=== PATIENT | female | born 1995 | race Caucasian/White ===

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

== ENCOUNTER 2018-03-18 15:46 | Emergency (ER) | payer MEDICAID ==
[~2018-03-18] VITALS: Ht 170.2 cm; Wt 89.8 kg
--- OUTSIDE RECORDS SUMMARY | 2018-03-18 16:31 | XMS REPORT ---
Author Author GLENNA CASTILLO Organization [facility] Address [address] [place] [address] Care Team Providers Care Movers Name Role Phone ZULYBONNIE GLENNA TINAJERO Unavailable PROBLEMS Unknown Problems ALLERGIES Substance Reaction Event Type Date Status N.K.D.A. Unknown Non Drug Allergy Jun, Unknown SOCIAL HISTORY No smoking Hx information available PLAN OF CARE Activity Details Follow Up prn Reason: VITAL SIGNS Height 67 in 2016-06-26 Weight 143.1 lbs 2016-06-26 Temperature 99.1 degrees Fahrenheit 2016-06-26 Heart Rate 76 bpm 2016-06-26 Respiratory Rate 16 2016-06-26 BMI 22.41 kg/m2 2016-06-26 Blood pressure systolic 120 mmHg 2016-06-26 Blood pressure diastolic 68 mmHg 2016-06-26 MEDICATIONS Medication Instructions Dosage Frequency Start Date End Date Duration Status Depo-Provera 150 MG/ML 1 ml Active RESULTS Name Result Date Reference Range TEST, URINE (IN HOUSE) 2016-06-26 RESULTS negative Lot # [id number] Control + Exp date 12/02/2017 TRICHOMONAS (IN HOUSE) 2016-06-26 TRICHOMONAS negative Control + Lot # [id number] Exp date 03/2017 BACTERIAL VAGINOSIS (IN HOUSE) 2016-06-26 RESULTS negative Control + Lot # [id number] Exp date 08/2016 GC/CHLAMYDIA (SWAB OR URINE)-RAPID 2016-06-26 Chlamydia trachomatis, LISSETH Negative Negative Neisseria gonorrhoeae, LISSETH Negative Negative PROCEDURES Procedure Date Ordered Related Diagnosis Body Site LAB NOT BILLED BY [facility] Jun 26, 2016 URINE TEST Jun 26, 2016 Office Visit, Est Pt., Level 3 Jun 26, 2016 MASCORRO VAG, DNA, DIR PROBE Jun 26, 2016 IMMUNIZATIONS No Known Immunizations
--- OUTSIDE RECORDS SUMMARY | 2018-03-18 16:31 | XMS REPORT ---
Author Author DIYA BROWN [facility] Address [address] [place] [address] Care Team Providers Care Box Lidder Name Role Phone DIYA BROWN Unavailable PROBLEMS Unknown Problems ALLERGIES No Known Allergies SOCIAL HISTORY Never Assessed PLAN OF CARE Activity Details Follow Up prn Reason: VITAL SIGNS Height 67 in 2016-09-19 Weight 189.6 lbs 2016-09-19 Temperature 96.4 degrees Fahrenheit 2016-09-19 Heart Rate 107 bpm 2016-09-19 Respiratory Rate 20 2016-09-19 BMI 29.69 kg/m2 2016-09-19 Blood pressure systolic 126 mmHg 2016-09-19 Blood pressure diastolic 84 mmHg 2016-09-19 MEDICATIONS Medication Instructions Dosage Frequency Start Date End Date Duration Status Zyrtec Childrens Allergy 1 MG/ML Orally Once a day 2.5 ml as needed 24h Sep, December, 30 day(s) Active Zyrtec Allergy 10 mg Orally Once a day 1 tablet 24h Sep, Nov, 30 day(s) Active RESULTS No Results PROCEDURES No Known procedures IMMUNIZATIONS No Known Immunizations MEDICAL (GENERAL) HISTORY Type Description Date Medical History chlamydia
--- OUTSIDE RECORDS SUMMARY | 2018-03-18 16:31 | XMS REPORT ---
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 Role Phone TOMAS MCKENZIE Unavailable PROBLEMS Unknown Problems ALLERGIES No Known Allergies ENCOUNTERS Encounter Location Date Diagnosis [facility] [address] [address] 13 May, 2017 General medical exam Z00.00 and Fatigue, unspecified type R53.83 [facility] [address] [address] May, General medical exam Z00.00 and Fatigue, unspecified type R53.[address] [id number] Sep, Post-nasal drip R09.[address] [id number] Jun, [address] [id number] Jun, Vaginal odor N89.8 ; High risk sexual behavior Z72.51 and Depo-Provera contraceptive status Z30.40 [place] [id number] [place] [address] [id number] Feb, Encounter for Depo-Provera contraception Z30.42 [facility] [address] [address] December, [place] [id number] [place] [address] [id number] December, [place] [id number] [place] [address] [id number] Nov, [address] [id number] Nov, High risk bisexual behavior Z72.53 and Trichomonas infection A59.9 [facility] [address] [facility] [id number] [address] [address] Nov, Encounter for Depo-Provera contraception Z30.42 and Encounter for immunization Z23 [facility] [address] [facility] [id number], [place] [address] Nov, Acute sinusitis J01.90 [place] [id number] [place] [address] [id number] Sep, Acute frontal sinusitis, recurrence not specified J01.10 [place] [id number] [place] [address] [id number] Aug, High risk sexual behavior Z72.51 and Trichomonas infection A59.[address] [place] [address] [id number] Jul, [place] [id number] [place] [address] [id number] Jun, [address] [place] [address] [id number] May, Screening for STD sexually transmitted disease Z11.3 and Encounter for immunization Z23 [facility] [address] [facility] [id number][place] [id number] May, [facility] [address] [facility] [id number][place] [id number] Apr, [facility] [place] [address] [id number] Apr, Leukorrhea 623.5 [address] [place] [address] [id number] Mar, Routine child health exam V20.2 ; Encounter for Depo-Provera contraception V25.49 ; Dietary counseling and surveillance V65.3 ; Exercise counseling V65.41 and GARDASIL (HPV) DX V04.89 [address] [place] [address] [id number] Abhay, 2015 Insect bite 919.4 [facility] [address] [facility] [id number] [id number] December, [facility] [place] [facility] [address] [place] [address] [id number], [place] [address] Nov, [facility] [place] [facility] [address]00565100[place], [place] [address] Nov, [facility] [id number][place] [id number] Sep, [facility] [place] [facility] [address]00565100[place], [place] [address] Sep, [facility] [id number] [place] [address] [id number] Sep, [facility] [address]00565100[place], [place] [address] Sep, [facility] [id number][place] [id number] Aug, [facility] [address]00565100[place] [address] Aug, [facility] [id number][place] [id number] Jul, [facility] [place] [facility] [id number] Jul, [facility] [place] [facility] [id number], [place] [address] Jul, [facility] [place] [facility] [id number], [place] [address] Jul, [facility] [place] [facility] [address]00565100[place], [place] [address] Jul, [facility] [id number][place] [id number] Jul, [facility] [place] [facility] [address] [place] [address] [id number] [address] Jul, [facility] [place] [facility] [address] [id number], [place] [address] Jul, [facility] [address] [id number] [place] [id number] Jul, [facility] [place] [facility] [address] [facility] [id number] [place] [address] Jul, [facility] [place] [facility] [address] [facility] [id number] [place] [address] Jul, [facility] [address] [id number] [place] [id number] Jul, [facility] [place] [facility] [address] [id number] [place] [address]- [address] Jul, [facility] [address] [id number] [place] [id number] Jul, [facility] [address] [facility] [id number] [place] [id number] Jul, [facility] [place] [facility] [address] [facility] [id number], [place] [address] Jul, [facility] [place] [facility] [address] [facility] [id number] [place] [address]- [address] Jul, [facility] [address] [facility] [id number] [place] [id number] Jul, [facility] [place] [facility] [address] [facility] [id number], [place] [address] Jul, [facility] [place] [facility] [address] [facility] [id number], [place] [address] Jul, [facility] [place] [facility] [address] [facility] [id number], [place] [address] Jul, [facility] [address] [facility] [id number] [place] [id number] Jul, [facility] [place] [facility] [address] [facility] [id number] [place] [address]- [address] Jul, [facility] [place] [facility] [address] [facility] [id number], [place] [address] Jul, [facility] [address] [id number][place] [id number] Jul, [facility] [place] [facility] [address] [id number] [place] [address]- [address] Jul, [facility] [place] [facility] [address] [id number] [place] [address]- [address] Jul, [facility] [place] [facility] [address] [facility] [id number] [place] [address] Jul, [facility] [address] [id number][place] [id number] Jun, [facility] [place] [facility] [address] [facility] [id number] [place] [address]- [address] Jun, [facility] [address] [facility] [id number][place] [id number] Jun, [facility] [place] [facility] [address] [facility] [id number], [place] [address] Jun, [facility] [address] [facility] [id number][place] [id number] Jun, [facility] [place] [facility] [address] [facility] [id number], [place] [address] Jun, [facility] [place] [facility] [address] [facility] [id number], [place] [address] May, [facility] [address] [id number][place] [id number] May, [facility] [address] [facility] [id number][place] [id number] May, [facility] [place] [facility] [address] [facility] [id number], [place] [address] May, [facility] [place] [facility] [address] [facility] [id number], [place] [address] May, [facility] [place] [facility] [address] [facility] [id number], [place] [address]- [address] May, [facility] [address] [facility] [id number][place] [address] May, [facility] [place] [facility] [address] [facility] [id number] [place] [address]- [address] May, [facility] [place] [facility] [address] [facility] [id number], [place] [address] May, [facility] [place] [facility] [address] [facility] [id number] [place] [address]- 4[address] Apr, [facility] [place] [facility] [address] [id number] [place] [address]- 3658 Apr, [facility] [place] [facility] [address] [facility] [id number] [place] [address]- 0716 Apr, [facility] [place] [facility] [address] [facility] [id number] [place] [address]- 1184 Apr, [facility] [place] [facility] [address] [facility] [id number], [place] [address]- 1609 Apr, [facility] [place] [facility] [address] [facility] [id number], [place] [address]- [address] Apr, [facility] [address] [facility] [id number][place] [id number] Apr, [facility] [place] [facility] [address] [facility] [id number], [place] [address]- [address] Apr, [facility] [place] [facility] [address] [facility] [id number][place] [address]- 3[address] Apr, [facility] [address] [facility] [id number][place] [id number] Apr, [facility] [place] [facility] [address] [facility] [id number], [place] [address]- 26[address] Apr, [facility] [place] [facility] [address] [facility] [id number][place] [address] Mar, [facility] [place] [facility] [address] [facility] [id number], [place] [address]- 74[address] Mar, [facility] [address] [facility] [id number][place] [id number] Mar, [facility] [place] [facility] [address] [id number] [place] [address]- 8316 Mar, [facility] [place] [facility] [address] [id number] [place] [address]- 2536 Feb, [facility] [address] [id number] [place] [id number] Feb, [facility] [place] [facility] [address] [id number] [place] [address]- 1573 Feb, [facility] [place] [facility] [address] [facility] [id number] [place] [address]- 4261 Feb, [facility] [place] [facility] [address] [id number] [place] [address]- 7484 Feb, [facility] [address] [id number] [place] [id number] Feb, [facility] [address] [id number] [place] [id number] Feb, [facility] [place] [facility] [address] [facility] [id number] [place] [address]- 1003 Feb, [facility] [place] [facility] [address] [facility] [id number] [place] [address]- 8816 Feb, [facility] [address] [id number] [place] [id number] Jan, [facility] [place] [facility] [address] [id number], [place] [address]- 5[address] Jan, [facility] [address] [id number][place] [id number] Jan, [facility] [place] [facility] [address] [id number] [place] [address]- 5[address] Jan, [facility] [address] [id number] [place] [id number] Jan, [facility] [place] [facility] [address] [id number] [place] [address]- 3556 Jan, [facility] [address] [id number][place] [address] Nov, [facility] [place] [facility] [address] [facility] [id number], [place] [address]- [address] Nov, [facility] [address] [facility] [id number][place] [id number] Oct, [facility] [place] [facility] [address]00565100[place], [place] [address]- 6[address] Oct, [facility] [address] [facility] [id number][place] [id number] Sep, [facility] [place] [facility] [address]00565100[place], [place] [address]- 6[address] Sep, [facility] [address] [place] [address] [id number][place] [id number] Sep, [facility] [place] [facility] [address]00565100[place], [place] [address]- 5645 Sep, [facility] [place] [facility] [address]00565100[place], [place] [address]- 9929 Sep, [facility] [place] [facility] [address]00565100[place], [place] 8713 Sep, [facility] [place] [facility] [address]00565100[place], [place] [address]- 8084 Aug, [facility] [place] [facility] [address]00565100[place], [place] [address]- 7187 Aug, [facility] [id number], [place] [id number] Aug, [facility] [place] [facility] [address] [facility] [id number], [place] [address]- 5589 Aug, [facility] [address] [facility] [id number][place] [id number] May, [facility] [place] [facility] [address]00565100[place], [place] [address]- 8906 May, [facility] [id number], [place] [id number] Apr, [facility] [address] [id number][place] [id number] Mar, [facility] [address] [id number][place] [address] Mar, [facility] [address] [id number], [place] [id number] Oct, [facility] [address] [id number][place] [id number] Aug, [facility] [address] [id number] [place] [address] [id number] Aug, [facility] [id number] [place] [address] [id number] Aug, [facility] [id number] [place] [address] [id number] Jun, [facility] [id number] [place] [address] Jun, [facility] [id number] [place] [address] [id number] Nov, [facility] [address] [address] Sep, [facility] [address] [address] May, [facility] [id number] [place] [address] May, IMMUNIZATIONS No Known Immunizations SOCIAL HISTORY Never Assessed REASON FOR VISIT Establish Care -- Thyroid, pt. requesting that thyroid be checked---MARÍA Dorsey PLAN OF CARE Activity Details Follow Up 1 year or as indicated by lab that she will return Reason: VITAL SIGNS Height 67 in 2017-05-14 Weight 186.5 lbs 2017-05-14 Temperature 97.6 degrees Fahrenheit 2017-05-14 Heart Rate 77 bpm 2017-05-14 Respiratory Rate 18 2017-05-14 BMI 29.21 kg/m2 2017-05-14 Blood pressure systolic 119 mmHg 2017-05-14 Blood pressure diastolic 76 mmHg 2017-05-14 MEDICATIONS Unknown Medications RESULTS No Results PROCEDURES No Known procedures INSTRUCTIONS MEDICATIONS ADMINISTERED No Known Medications MEDICAL (GENERAL) HISTORY Type Description Date Medical History chlamydia
--- OUTSIDE RECORDS SUMMARY | 2018-03-18 16:33 | XMS REPORT | Continuity of Care Document ---
Author Author [facility] Address Unknown Phone Unavailable Allergies Active Description Code Type Severity Reaction Onset Reported/Identified Relationship to Patient Clinical Status Yes No Known Drug Allergies [id number] Drug Allergy Mild N/A 11/29/2008 Medications There is no data. Problems Date Dx Coded Attending Type Code Diagnosis Diagnosed By 09/10/2008 465.9 UPPER RESPIRATORY INFECTION ACUTE 09/10/2008 CHAD GILLILAND MD 465.9 UPPER RESPIRATORY INFECTION ACUTE 09/10/2008 465.9 [...] 465.9 UPPER RESPIRATORY INFECTION ACUTE 09/10/2008 HELLJOHNNIE MARKETING DATABASE CONSULTANT YELENA E 465.9 UPPER RESPIRATORY INFECTION ACUTE 09/10/2008 ASHISH MARKETING DATABASE CONSULTANT, KAREN A 465.9 UPPER RESPIRATORY INFECTION ACUTE 09/10/2008 MEREDITH HOFF APRN 465.9 UPPER RESPIRATORY INFECTION ACUTE 09/10/2008 ASHISH MARKETING DATABASE CONSULTANT, KAREN A 465.9 UPPER RESPIRATORY INFECTION ACUTE 09/10/2008 MC DO, MARTI K 465.9 UPPER RESPIRATORY INFECTION ACUTE 09/10/2008 HELLWIG MARKETING DATABASE CONSULTANT YELENA E 465.9 UPPER RESPIRATORY INFECTION ACUTE 09/10/2008 MC DO, MARTI K 465.9 UPPER RESPIRATORY INFECTION ACUTE 09/10/2008 HELLWIG MARKETING DATABASE CONSULTANT, YELENA E 465.9 UPPER RESPIRATORY INFECTION ACUTE [...] 465.9 UPPER RESPIRATORY INFECTION ACUTE 09/10/2008 HELLWIG MARKETING DATABASE CONSULTANTYELENA E 465.9 UPPER RESPIRATORY INFECTION ACUTE 09/10/2008 HELLWIG MARKETING DATABASE CONSULTANTYELENA Paez E 465.9 UPPER RESPIRATORY INFECTION ACUTE 09/10/2008 MC DO, MARTI K 465.9 UPPER RESPIRATORY INFECTION ACUTE 09/10/2008 HELLWIG MARKETING DATABASE CONSULTANTYELENA E 465.9 UPPER RESPIRATORY INFECTION ACUTE 09/10/2008 [...] MARTI K 708.0 ALLERGIC URTICARIA 11/03/2008 HELLWIG MARKETING DATABASE CONSULTANTIFEANYIE E 461.9 SINUSITIS ACUTE 11/03/2008 HELLWIG MARKETING DATABASE CONSULTANT, YELENA E 708.0 ALLERGIC URTICARIA 11/03/2008 ASHISH MARKETING DATABASE CONSULTANT, KAREN A 461.9 SINUSITIS ACUTE 11/03/2008 ASHISH MARKETING DATABASE CONSULTANT, KAREN A 708.0 ALLERGIC URTICARIA 11/03/2008 HOFF MARKETING DATABASE CONSULTANT, MEREDITH R 461.9 SINUSITIS ACUTE 11/03/2008 HOFF MARKETING DATABASE CONSULTANT, MEREDITH R 708.0 ALLERGIC URTICARIA 11/03/2008 ASHISH MARKETING DATABASE CONSULTANT, KAREN A 461.9 SINUSITIS ACUTE 11/03/2008 ASHISH MARKETING DATABASE CONSULTANT, KAREN A 708.0 ALLERGIC URTICARIA 11/03/2008 MC DO, MARTI K 461.9 SINUSITIS ACUTE 11/03/2008 MC DO, MARTI K 708.0 ALLERGIC URTICARIA 11/03/2008 HELLWIG MARKETING DATABASE CONSULTANT, YELENA E 461.9 SINUSITIS ACUTE 11/03/2008 HELWIG MARKETING DATABASE CONSULTANT, YELENA E 708.0 ALLERGIC URTICARIA 11/03/2008 MC DO, MARTI K 461.9 SINUSITIS ACUTE 11/03/2008 MC DO, MARTI K 708.0 ALLERGIC URTICARIA 11/03/2008 HELLWIG MARKETING DATABASE CONSULTANT, YELENA E 461.9 SINUSITIS ACUTE 11/03/2008 HELWIG MARKETING DATABASE CONSULTANT, YELENA E 708.0 ALLERGIC URTICARIA 11/03/2008 MC [...] MARTI K 708.0 ALLERGIC URTICARIA 11/03/2008 HELLWIG MARKETING DATABASE CONSULTANT, YELENA E 461.9 SINUSITIS ACUTE 11/03/2008 HELLWIG MARKETING DATABASE CONSULTANT, YELENA E 708.0 ALLERGIC URTICARIA 11/03/2008 HELLWIG MARKETING DATABASE CONSULTANT, YELENA E 461.9 SINUSITIS ACUTE 11/03/2008 HELLWIG MARKETING DATABASE CONSULTANT, YELENA E 708.0 ALLERGIC URTICARIA 11/03/2008 MC DO, MARTI K 461.9 SINUSITIS ACUTE 11/03/2008 MC DO, MARTI K 708.0 ALLERGIC URTICARIA 11/03/2008 HELLWIG MARKETING DATABASE CONSULTANT, YELENA E 461.9 SINUSITIS ACUTE 11/03/2008 HELLWIG MARKETING DATABASE CONSULTANT, YELENA E 708.0 ALLERGIC URTICARIA 11/03/2008 MC DO, MARTI K 461.9 SINUSITIS ACUTE 11/03/2008 MC DO, MARTI K 708.0 ALLERGIC URTICARIA 11/03/2008 MC DO, MARTI K 461.9 SINUSITIS ACUTE 11/03/2008 MC DO, MARTI K 708.0 ALLERGIC URTICARIA 11/17/2009 V05.4 VARICELLA, CHICKENPOX 11/17/2009 V06.5 DT, TETANUS- DIPHTHERIA [Td] ,TDAP 11/17/2009 CHAD GILLILAND MD V05.4 VARICELLA, CHICKENPOX 11/17/2009 CHAD GILLILAND MD V06.5 DT, TETANUS-DIPHTHERIA [Td] ,TDAP 11/17/2009 V05.4 VARICELLA, CHICKENPOX 11/17/2009 V06.5 DT, TETANUS- DIPHTHERIA [Td] ,TDAP 11/17/2009 V05.4 VARICELLA, CHICKENPOX 11/17/2009 V06.5 DT, TETANUS- DIPHTHERIA [Td] ,TDAP 11/17/2009 ALEXANDRO JOLLY MARTI K V05.4 VARICELLA, CHICKENPOX 11/17/2009 ALEXANDRO JOLLY MARTI K V06.5 DT, TETANUS-DIPHTHERIA [Td] ,TDAP [...] K V06.5 DT, TETANUS-DIPHTHERIA [Td] ,TDAP 11/17/2009 MAXIMLJOHNNIE MARKETING DATABASE CONSULTANTYELENA Paez E V05.4 VARICELLA, CHICKENPOX 11/17/2009 HELLWIG MARKETING DATABASE CONSULTANTYELENA V06.5 DT, TETANUS-DIPHTHERIA [Td] ,TDAP 11/17/2009 ASHISHKAREN Paez APRN A V05.4 VARICELLA, CHICKENPOX 11/17/2009 ASHISH ORNELAS, KAREN A V06.5 DT, TETANUS-DIPHTHERIA [Td] ,TDAP 11/17/2009 HOFF MEREDITH ORNELAS V05.4 VARICELLA, CHICKENPOX 11/17/2009 HOFF MARKETING DATABASE CONSULTANTMEREDITH Paez V06.5 DT, TETANUS-DIPHTHERIA [Td] ,TDAP 11/17/2009 ASHISH APRN, KAREN A V05.4 VARICELLA, CHICKENPOX 11/17/2009 ASHISH MARKETING DATABASE CONSULTANT, KAREN A V06.5 DT, TETANUS-DIPHTHERIA [Td] ,TDAP 11/17/2009 MARTI MC DO K V05.4 VARICELLA, CHICKENPOX 11/17/2009 MC DO, MARTI K V06.5 DT, TETANUS-DIPHTHERIA [Td] ,TDAP 11/17/2009 MAXIMYELENA BLAIR APRN V05.4 VARICELLA, CHICKENPOX 11/17/2009 HELWIG MARKETING DATABASE CONSULTANTYELENA Paez V06.5 DT, TETANUS-DIPHTHERIA [Td] ,TDAP 11/17/2009 ALEXANDRO DOMARTI K V05.4 VARICELLA, CHICKENPOX 11/17/2009 MC DO, MARTI K V06.5 DT, TETANUS-DIPHTHERIA [Td] ,TDAP 11/17/2009 YELENA TUCKER APRN V05.4 VARICELLA, CHICKENPOX 11/17/2009 YELENA TUCKER [...] YELENA TUCKER APRN V05.4 VARICELLA, CHICKENPOX 11/17/2009 YELENA TUCKER APRN E V06.5 DT, TETANUS-DIPHTHERIA [TD] ,TDAP 11/17/2009 YELENA TUCKER APRN E V05.4 VARICELLA, CHICKENPOX 11/17/2009 YELENA TUCKER APRN E V06.5 DT, TETANUS-DIPHTHERIA [TD] ,TDAP 11/17/2009 MC DO, MARTI K V05.4 VARICELLA, CHICKENPOX 11/17/2009 MC DO, MARTI K V06.5 DT, TETANUS-DIPHTHERIA [TD] ,TDAP 11/17/2009 HELLWIG MARKETING DATABASE CONSULTANT, YELENA E V05.4 VARICELLA, CHICKENPOX 11/17/2009 YELENA TUCKER [...] DO, MARTI K 786.2 COUGH 04/13/2010 HELLWIG MARKETING DATABASE CONSULTANT YELENA E 477.9 RHINITIS 04/13/2010 HELWIG MARKETING DATABASE CONSULTANT, YELENA E 780.79 MALAISE AND FATIGUE 04/13/2010 HELWIG MARKETING DATABASE CONSULTANT, YELENA E 786.2 COUGH 04/13/2010 ASHISH MARKETING DATABASE CONSULTANT, KAREN A 477.9 RHINITIS 04/13/2010 ASHISH MARKETING DATABASE CONSULTANT, KAREN A 780.79 MALAISE AND FATIGUE 04/13/2010 ASHISH MARKETING DATABASE CONSULTANT, KAREN A 786.2 COUGH 04/13/2010 HOFF MARKETING DATABASE CONSULTANTMEREDITH Paez 477.9 RHINITIS 04/13/2010 HOFF MARKETING DATABASE CONSULTANT, MEREDITH Stubbs 780.79 MALAISE AND FATIGUE 04/13/2010 HOFF MARKETING DATABASE CONSULTANT, MEREDITH Stubbs 786.2 COUGH 04/13/2010 ASHISH MARKETING DATABASE CONSULTANT, KAREN A 477.9 RHINITIS 04/13/2010 ASHISH MARKETING DATABASE CONSULTANT, KAREN A 780.79 MALAISE AND FATIGUE 04/13/2010 ASHISH MARKETING DATABASE CONSULTANT, KAREN A 786.2 COUGH 04/13/2010 MC DO, MARTI K 477.9 RHINITIS 04/13/2010 MC DO, MATRI K 780.79 MALAISE AND FATIGUE 04/13/2010 MC DO, MARTI K 786.2 COUGH 04/13/[address] [facility] MARKETING DATABASE CONSULTANT, YELENA E 477.9 RHINITIS 04/13/2010 [facility] MARKETING DATABASE CONSULTANTJANELYELENA E 780.79 MALAISE AND FATIGUE 04/13/2010 HELWIG MARKETING DATABASE CONSULTANT, YELENA E 786.2 COUGH 04/13/2010 MC DO, MARTI K 477.9 RHINITIS 04/13/2010 MC DO, MARTI K 780.79 MALAISE AND FATIGUE 04/13/2010 MC DO, MARTI K 786.2 COUGH 04/13/2010 HELWIG MARKETING DATABASE CONSULTANT, YELENA E 477.9 RHINITIS 04/13/2010 HELWIG MARKETING DATABASE CONSULTANT, YELENA E 780.79 MALAISE AND FATIGUE 04/13/2010 HELWIG MARKETING DATABASE CONSULTANTJANELYELENA E 786.2 COUGH 04/13/2010 MC DO, MARTI [...] DO, MARTI K 786.2 COUGH 04/13/2010 HELLWIG MARKETING DATABASE CONSULTANT, YELENA E 477.9 RHINITIS 04/13/2010 HELLWIG MARKETING DATABASE CONSULTANT, YELENA E 780.79 MALAISE AND FATIGUE 04/13/2010 HELLWIG MARKETING DATABASE CONSULTANT, YELENA E 786.2 COUGH 04/13/2010 HELLWIG MARKETING DATABASE CONSULTANT, YELENA E 477.9 RHINITIS 04/13/2010 HELLWIG MARKETING DATABASE CONSULTANT, YELENA E 780.79 MALAISE AND FATIGUE 04/13/2010 HELLWIG MARKETING DATABASE CONSULTANT, YELENA E 786.2 COUGH 04/13/2010 MC DO, MARTI K 477.9 RHINITIS 04/13/2010 MC DO, MARTI K 780.79 MALAISE AND FATIGUE 04/13/2010 MC DO, MARTI K 786.2 COUGH 04/13/2010 HELLWIG MARKETING DATABASE CONSULTANT, YELENA E 477.9 RHINITIS 04/13/2010 HELLWIG MARKETING DATABASE CONSULTANT, YELENA E 780.79 MALAISE AND FATIGUE 04/13/2010 HELLWIG MARKETING DATABASE CONSULTANT, YELENA E 786.2 COUGH 04/13/2010 MC DO, [...] MARTI K 486 PNEUMONIA UNSPECIFIED 09/01/2010 GARRETT MARKETING DATABASE CONSULTANTJANEL PaezSIE E 486 PNEUMONIA UNSPECIFIED 09/01/2010 ASHISH ORNELAS KAREN A 486 PNEUMONIA UNSPECIFIED 09/01/2010 MEREDITH HOFF APRN 486 PNEUMONIA UNSPECIFIED 09/01/2010 ASHISH MARKETING DATABASE CONSULTANTATIYA PaezIDI A 486 PNEUMONIA UNSPECIFIED 09/01/2010 MC DO, MARTI K 486 PNEUMONIA UNSPECIFIED 09/01/2010 JANEL TUCKER APRNSIE E 486 PNEUMONIA UNSPECIFIED 09/01/2010 MC DO, MARTI K 486 PNEUMONIA UNSPECIFIED 09/01/2010 GARRETT MARKETING DATABASE CONSULTANTJANEL PaezSIE E 486 PNEUMONIA UNSPECIFIED 09/01/2010 MC DO, MARTI K 486 PNEUMONIA UNSPECIFIED 09/01/2010 MC DO, MARTI K 486 PNEUMONIA UNSPECIFIED 09/01/2010 MC DO, MARTI K 486 PNEUMONIA UNSPECIFIED 09/01/2010 MC DO, MARTI K 486 PNEUMONIA UNSPECIFIED 09/01/2010 MC DO, MARTI K 486 PNEUMONIA UNSPECIFIED 09/01/2010 MC DO, MARTI K 486 PNEUMONIA UNSPECIFIED 09/01/2010 MAXIMLJOHNNIE MARKETING DATABASE CONSULTANT YELENA E 486 PNEUMONIA UNSPECIFIED 09/01/2010 YELENA TUCKER APRN [...] TUCKER APRN V74.5 visit for: screening exam bact/spirochetal STD 08/12/2012 KAREN HINOJOSA APRN V25.02 Contraceptives 08/12/2012 KAREN HINOJOSA APRN V74.5 visit for: screening exam bact/spirochetal STD 08/12/2012 HOFF MARKETING DATABASE CONSULTANT, MEREDITH R V25.02 Contraceptives 08/12/2012 MEREDITH HOFF APRN V74.5 visit for: screening exam bact/spirochetal STD 08/12/2012 KAREN HINOJOSA APRN A V25.02 Contraceptives 08/12/2012 KAREN HINOJOSA APRN A V74.5 visit for: screening exam bact/spirochetal STD 08/12/2012 MARTI MC DO K V25.02 Contraceptives 08/12/2012 MARTI MC DO K V74.5 visit for: screening exam bact/spirochetal STD 08/12/[address] [facility]OUISYELE[facility] BLAIR APRN V25.02 Contraceptives 08/12/2012 YELENA TUCKER APRN V74.5 visit for: screening exam bact/spirochetal STD 08/12/2012 MARTI MC DO K V25.02 Contraceptives 08/12/2012 MARTI MC DO K V74.5 visit for: screening exam bact/spirochetal STD 08/12/2012 YELENA TUCKER APRN E V25.02 Contraceptives 08/12/[address] [facility]OUISYELE[facility] BLAIR APRN V74.5 visit for: screening exam bact/spirochetal STD 08/12/2012 JANEL MC DOA K V25.02 CONTRACEPTIVES 08/12/2012 JANEL MC DOA K V74.5 VISIT FOR: SCREENING EXAM BACT/SPIROCHETAL STD 08/12/2012 JANEL MC DOA K V25.02 CONTRACEPTIVES 08/12/2012 JANEL MC DOA K V74.5 VISIT FOR: SCREENING EXAM BACT/SPIROCHETAL STD 08/12/2012 JANEL MC DOA K V25.02 CONTRACEPTIVES 08/12/2012 JANEL MC DOA K V74.5 VISIT FOR: SCREENING EXAM BACT/SPIROCHETAL STD 08/12/2012 ALEXANDRO JOLLY MARTI K V25.02 CONTRACEPTIVES 08/12/2012 JANEL MC DOA K V74.5 VISIT FOR: SCREENING EXAM BACT/SPIROCHETAL STD 08/12/2012 ALEXANDRO JOLLY MARTI K V25.02 CONTRACEPTIVES 08/12/2012 JANEL MC DOA K V74.5 VISIT FOR: SCREENING EXAM BACT/SPIROCHETAL STD 08/12/2012 JANEL MC DOA K V25.02 CONTRACEPTIVES 08/12/2012 JANEL MC DOA K V74.5 VISIT FOR: SCREENING EXAM BACT/SPIROCHETAL STD 08/12/2012 YELENA TUCKER APRN V25.02 CONTRACEPTIVES 08/12/2012 YELENA TUCKER APRN V74.5 VISIT FOR: SCREENING EXAM BACT/SPIROCHETAL STD 08/12/2012 YELENA TUCKER APRN V25.02 CONTRACEPTIVES 08/12/2012 YELENA TUCKER APRN V74.5 VISIT FOR: SCREENING EXAM BACT/SPIROCHETAL STD 08/12/2012 MARTI MC DO V25.02 CONTRACEPTIVES 08/12/2012 MARTI MC DO K V74.5 VISIT FOR: SCREENING EXAM BACT/SPIROCHETAL STD 08/12/2012 YELENA TUCKER APRN V25.02 CONTRACEPTIVES 08/12/2012 YELENA TUCKER APRN V74.5 VISIT FOR: SCREENING EXAM BACT/SPIROCHETAL STD 08/12/2012 MARTI MC DO V25.02 CONTRACEPTIVES 08/12/2012 MARTI MC DO V74.5 VISIT FOR: SCREENING EXAM BACT/SPIROCHETAL STD 08/12/2012 MARTI MC DO K V25.02 CONTRACEPTIVES 08/12/2012 MARTI MC DO K V74.5 VISIT FOR: SCREENING EXAM BACT/SPIROCHETAL STD 10/08/2012 462 PHARYNGITIS ACUTE 10/08/2012 462 PHARYNGITIS ACUTE 10/08/2012 MARTI MC DO K 462 PHARYNGITIS ACUTE 10/08/2012 MARTI MC DO K 462 PHARYNGITIS ACUTE 10/08/2012 MARTI MC DO K 462 PHARYNGITIS ACUTE 10/08/2012 ALEXANDRO JOLLY MARTI K 462 PHARYNGITIS ACUTE 10/08/2012 ALEXANDRO JOLLY MARTI K 462 PHARYNGITIS ACUTE 10/08/2012 YELENA TUCKER APRN 462 PHARYNGITIS ACUTE 10/08/2012 ASHISH ORNELAS, KAREN A 462 PHARYNGITIS ACUTE 10/08/2012 MEREDITH HOFF APRN 462 PHARYNGITIS ACUTE 10/08/2012 ASHISH MARKETING DATABASE CONSULTANT, KAREN A 462 PHARYNGITIS ACUTE 10/08/2012 MC DO, MARTI K 462 PHARYNGITIS ACUTE 10/08/2012 HELLWIG MARKETING DATABASE CONSULTANTJANEL PaezSIE E 462 PHARYNGITIS ACUTE 10/08/2012 MC DO, MARTI K 462 PHARYNGITIS ACUTE 10/08/2012 HELLWIG MARKETING DATABASE CONSULTANTIFEANYI PaezE E 462 PHARYNGITIS ACUTE 10/08/2012 MC DO, MARTI K 462 PHARYNGITIS ACUTE 10/08/2012 MC DO, MARTI K 462 PHARYNGITIS ACUTE 10/08/2012 MC DO, MARTI K 462 PHARYNGITIS ACUTE 10/08/2012 MC DO, MARTI K 462 PHARYNGITIS ACUTE 10/08/2012 MC DO, MARTI K 462 PHARYNGITIS ACUTE 10/08/2012 MC DO, MARTI K 462 PHARYNGITIS ACUTE 10/08/2012 HELLJOHNNIE MARKETING DATABASE CONSULTANTYELENA Paez E 462 PHARYNGITIS ACUTE 10/08/2012 HELLWIG MARKETING DATABASE CONSULTANTIFEANYI PaezE E 462 PHARYNGITIS ACUTE 10/08/2012 MC DO, MARTI K 462 PHARYNGITIS ACUTE 10/08/2012 HELLWIG MARKETING DATABASE CONSULTANTYELENA Paez E 462 PHARYNGITIS ACUTE 10/08/2012 MC DO, [...] DO, MARTI K 466.0 BRONCHITIS, ACUTE 03/16/2013 GARRETT MARKETING DATABASE CONSULTANTYELENA Paez E 466.0 BRONCHITIS, ACUTE 03/16/2013 ASHISHATIYA Paez APRNIDI A 466.0 BRONCHITIS, ACUTE 03/16/2013 MEREDITH HOFF APRN 466.0 BRONCHITIS, ACUTE 03/16/2013 ASHISH MARKETING DATABASE CONSULTANT, KAREN A 466.0 BRONCHITIS, ACUTE 03/16/2013 MC DO, MARTI K 466.0 BRONCHITIS, ACUTE 03/16/2013 HELLWIG MARKETING DATABASE CONSULTANT, YELENA E 466.0 BRONCHITIS, ACUTE 03/16/2013 MC DO, MARTI K 466.0 BRONCHITIS, ACUTE 03/16/2013 HELLWIG MARKETING DATABASE CONSULTANT, YELENA E 466.0 BRONCHITIS, ACUTE 03/16/2013 MC DO, MARTI K 466.0 BRONCHITIS, ACUTE 03/16/2013 MC DO, MARTI K 466.0 BRONCHITIS, ACUTE 03/16/2013 MC DO, MARTI K 466.0 BRONCHITIS, ACUTE 03/16/2013 MC DO, MARTI K 466.0 BRONCHITIS, ACUTE 03/16/2013 MC DO, MARTI K 466.0 BRONCHITIS, ACUTE 03/16/2013 MC DO, MARTI K 466.0 BRONCHITIS, ACUTE 03/16/2013 HELLWIG MARKETING DATABASE CONSULTANTJANEL PaezSIE E 466.0 BRONCHITIS, ACUTE 03/16/2013 HELLWIG MARKETING DATABASE CONSULTANT YELENA E 466.0 BRONCHITIS, ACUTE 03/16/2013 MC DO, MARTI K 466.0 BRONCHITIS, ACUTE 03/16/2013 HELLWIG MARKETING DATABASE CONSULTANTAJNEL PaezSIE E 466.0 BRONCHITIS, ACUTE 03/16/2013 MC DO, [...] COUNSELING ON PRESCRIPTION OF ORAL CONTRACEPTIVES 04/23/2013 KAREN HINOJOSA APRN A V25.01 GENERAL COUNSELING ON PRESCRIPTION OF ORAL CONTRACEPTIVES 04/23/2013 MEREDITH HOFF APRN V25.01 GENERAL COUNSELING ON PRESCRIPTION OF ORAL CONTRACEPTIVES 04/23/2013 KAREN HINOJOSA APRN A V25.01 GENERAL COUNSELING ON PRESCRIPTION OF [...] ENTERITIS DUE TO OTHER VIRAL ENTERITIS 05/22/2013 HOFF MARKETING DATABASE CONSULTANT, MEREDITH R 008.69 ENTERITIS DUE TO OTHER VIRAL ENTERITIS 05/22/2013 KAREN HINOJOSA APRN 008.69 ENTERITIS DUE TO OTHER VIRAL ENTERITIS 05/22/2013 MC DO, MARTI K 008.69 ENTERITIS DUE TO OTHER VIRAL ENTERITIS 05/22/2013 HELLWIG MARKETING DATABASE CONSULTANT, YELENA E 008.69 ENTERITIS DUE TO OTHER VIRAL ENTERITIS 05/22/2013 MC DO, MARTI K 008.69 ENTERITIS DUE TO OTHER VIRAL ENTERITIS 05/22/2013 HELLWIG MARKETING DATABASE CONSULTANT, YELENA E 008.69 ENTERITIS DUE TO OTHER [...] DUE TO OTHER VIRAL ENTERITIS 05/22/2013 HELLWIG MARKETING DATABASE CONSULTANT, YELENA E 008.69 ENTERITIS DUE TO OTHER VIRAL ENTERITIS 05/22/2013 MAXIMLWIG MARKETING DATABASE CONSULTANT, YELENA E 008.69 ENTERITIS DUE TO OTHER VIRAL ENTERITIS 05/22/2013 MC DO, MARTI K 008.69 ENTERITIS DUE TO OTHER VIRAL ENTERITIS 05/22/2013 MAXIMLWIG MARKETING DATABASE CONSULTANT, YELENA E 008.69 ENTERITIS DUE TO OTHER [...] 623.5 LEUKORRHEA NOT SPECIFIED INFECTIVE 08/31/2013 HELLWIG MARKETING DATABASE CONSULTANT, YELENA E 623.5 LEUKORRHEA NOT SPECIFIED INFECTIVE 08/31/2013 ASHISH MARKETING DATABASE CONSULTANT, KAREN A 623.5 LEUKORRHEA NOT SPECIFIED INFECTIVE 08/31/2013 KAVYA MARKETING DATABASE CONSULTANTMEREDITH 623.5 LEUKORRHEA NOT SPECIFIED INFECTIVE 08/31/2013 ASHISH MARKETING DATABASE CONSULTANT, KAREN A 623.5 LEUKORRHEA NOT SPECIFIED INFECTIVE 08/31/2013 MC DO, MARTI K 623.5 LEUKORRHEA NOT SPECIFIED INFECTIVE 08/31/2013 HELLWIG MARKETING DATABASE CONSULTANT, YELENA E 623.5 LEUKORRHEA NOT SPECIFIED INFECTIVE 08/31/2013 MC DO, MARTI K 623.5 LEUKORRHEA NOT SPECIFIED INFECTIVE 08/31/2013 HELLWIG MARKETING DATABASE CONSULTANT, YELENA E 623.5 LEUKORRHEA NOT SPECIFIED INFECTIVE [...] 623.5 LEUKORRHEA NOT SPECIFIED INFECTIVE 08/31/2013 HELLWIG MARKETING DATABASE CONSULTANT, YELENA E 623.5 LEUKORRHEA NOT SPECIFIED INFECTIVE 08/31/2013 HELLWIG MARKETING DATABASE CONSULTANT, YELENA E 623.5 LEUKORRHEA NOT SPECIFIED INFECTIVE 08/31/2013 MC DO, MARTI K 623.5 LEUKORRHEA NOT SPECIFIED INFECTIVE 08/31/2013 HELLWIG MARKETING DATABASE CONSULTANT, YELENA E 623.5 LEUKORRHEA NOT SPECIFIED INFECTIVE 08/31/2013 MC DO, MARTI K 623.5 LEUKORRHEA NOT SPECIFIED INFECTIVE 08/31/2013 MC DO, MARTI K 623.5 LEUKORRHEA NOT SPECIFIED INFECTIVE 11/27/2013 HELLWIG MARKETING DATABASE CONSULTANT, YELENA E 782.3 EDEMA 11/27/2013 HELLWIG MARKETING DATABASE CONSULTANT, YELENA E 995.3 ALLERGY UNSPECIFIED NOT ELSEWHERE CLASSIFIED 11/27/2013 ASHISH MARKETING DATABASE CONSULTANT, KAREN A 782.3 EDEMA 11/27/2013 ASHISH MARKETING DATABASE CONSULTANT, KAREN A 995.3 ALLERGY UNSPECIFIED NOT ELSEWHERE CLASSIFIED 11/27/2013 KAVYA ORNELASMEREDITH R 782.3 EDEMA 11/27/2013 KAVYA ORNELASMEREDITH 995.3 ALLERGY UNSPECIFIED NOT ELSEWHERE CLASSIFIED 11/27/2013 ASHISH MARKETING DATABASE CONSULTANT, KAREN A 782.3 EDEMA 11/27/2013 ASHISH MARKETING DATABASE CONSULTANT, KAREN A 995.3 ALLERGY UNSPECIFIED NOT ELSEWHERE CLASSIFIED 11/27/2013 MC DO, MARTI K 782.3 EDEMA 11/27/2013 MC DO, MARTI K 995.3 ALLERGY UNSPECIFIED NOT ELSEWHERE CLASSIFIED 11/27/2013 HELLWIG MARKETING DATABASE CONSULTANT YELENA E 782.3 EDEMA 11/27/2013 HELLWIG MARKETING DATABASE CONSULTANT, YELENA E 995.3 ALLERGY UNSPECIFIED NOT ELSEWHERE CLASSIFIED 11/27/2013 MC DO, MARTI K 782.3 EDEMA 11/27/2013 MC DO, MARTI K 995.3 ALLERGY UNSPECIFIED NOT ELSEWHERE CLASSIFIED 11/27/2013 HELLWIG MARKETING DATABASE CONSULTANT YELENA E 782.3 EDEMA 11/27/2013 HELLWIG MARKETING DATABASE CONSULTANT, YELENA E 995.3 ALLERGY UNSPECIFIED NOT ELSEWHERE [...] ALLERGY UNSPECIFIED NOT ELSEWHERE CLASSIFIED 11/27/2013 HELLWIG MARKETING DATABASE CONSULTANT, YELENA E 782.3 EDEMA 11/27/2013 HELLWIG MARKETING DATABASE CONSULTANT, YELENA E 995.3 ALLERGY UNSPECIFIED NOT ELSEWHERE CLASSIFIED 11/27/2013 HELLWIG MARKETING DATABASE CONSULTANT, YELENA E 782.3 EDEMA 11/27/2013 HELLWIG MARKETING DATABASE CONSULTANT, YELENA E 995.3 ALLERGY UNSPECIFIED NOT ELSEWHERE CLASSIFIED 11/27/2013 MC DO, MARTI K 782.3 EDEMA 11/27/2013 MC DO, MARTI K 995.3 ALLERGY UNSPECIFIED NOT ELSEWHERE CLASSIFIED 11/27/2013 HELLWIG MARKETING DATABASE CONSULTANT, YELENA E 782.3 EDEMA 11/27/2013 HELLWIG MARKETING DATABASE CONSULTANT, YELENA E 995.3 ALLERGY UNSPECIFIED NOT ELSEWHERE CLASSIFIED 11/27/2013 MC DO, MARTI K 782.3 EDEMA 11/27/2013 MC DO, MARTI K 995.3 ALLERGY UNSPECIFIED NOT ELSEWHERE CLASSIFIED 11/27/2013 MC DO, MARTI K 782.3 EDEMA 11/27/2013 MC DO, MARTI K 995.3 ALLERGY UNSPECIFIED NOT ELSEWHERE CLASSIFIED 01/11/2014 ABENA DO, CARLOS MANUEL K Ot 640.03 THREATEN ABORT-ANTEPART 01/12/2014 ASHISH MARKETING DATABASE CONSULTANT, KAREN A 640.00 THREATENED 01/12/2014 ASHISH MARKETING DATABASE CONSULTANT, KAREN A V22.2 INCIDENTAL 01/12/2014 HOFF MARKETING DATABASE CONSULTANT, MEREDITH R 640.00 THREATENED 01/12/2014 HOFF MARKETING DATABASE CONSULTANT, MEREDITH R V22.2 INCIDENTAL 01/12/2014 ASHISH MARKETING DATABASE CONSULTANT, KAREN A 640.00 THREATENED 01/12/2014 ASHISH MARKETING DATABASE CONSULTANT, KAREN A V22.2 INCIDENTAL 01/12/2014 MC DO, MARTI K 640.00 THREATENED 01/12/2014 MC DO, MARTI K V22.2 INCIDENTAL 01/12/2014 HELLWIG MARKETING DATABASE CONSULTANT, YELENA E 640.00 THREATENED 01/12/2014 HELLWIG MARKETING DATABASE CONSULTANT, YELENA E V22.2 INCIDENTAL 01/12/2014 MC DO, MARTI K 640.00 THREATENED 01/12/2014 MC DO, MARTI K V22.2 INCIDENTAL 01/12/2014 HELLWIG MARKETING DATABASE CONSULTANT, YELENA E 640.00 THREATENED 01/12/2014 HELLWIG MARKETING DATABASE CONSULTANT, YELENA E V22.2 INCIDENTAL 01/12/2014 MC DO, MARTI K 640.00 THREATENED 01/12/2014 MC DO, MARTI K V22.2 INCIDENTAL 01/12/2014 MC DO, MARTI K 640.00 THREATENED 01/12/2014 MC DO, MARTI K V22.2 INCIDENTAL 01/12/2014 CM DO, MARTI K 640.00 THREATENED 01/12/2014 MC DO, MARTI K V22.2 INCIDENTAL 01/12/2014 MC DO, MARTI K 640.00 THREATENED 01/12/2014 MC DO, MARTI K V22.2 INCIDENTAL 01/12/2014 MC DO, MARTI K 640.00 THREATENED 01/12/2014 MC DO, MARTI K V22.2 INCIDENTAL 01/12/2014 MC DO, MARTI K 640.00 THREATENED 01/12/2014 MC DO, MARTI K V22.2 INCIDENTAL 01/12/2014 HELLWIG MARKETING DATABASE CONSULTANT, YELENA E 640.00 THREATENED 01/12/2014 HELLWIG MARKETING DATABASE CONSULTANT, YELENA E V22.2 INCIDENTAL 01/12/2014 HELLWIG MARKETING DATABASE CONSULTANT, YELENA E 640.00 THREATENED 01/12/2014 HELLWIG MARKETING DATABASE CONSULTANT, YELENA E V22.2 INCIDENTAL 01/12/2014 MC DO, MARTI K 640.00 THREATENED 01/12/2014 MC DO, MARTI K V22.2 INCIDENTAL 01/12/2014 HELLWIG MARKETING DATABASE CONSULTANT, YELENA E 640.00 THREATENED 01/12/2014 HELLWIG MARKETING DATABASE CONSULTANT, YELENA E V22.2 INCIDENTAL 01/12/2014 MC DO, MARTI K 640.00 THREATENED 01/12/2014 MC DO, MARTI K V22.2 INCIDENTAL 01/12/2014 MC DO, MARTI K 640.00 THREATENED 01/12/2014 MC DO, MARTI K V22.2 INCIDENTAL 02/10/2014 MC DO, MARTI K V22.0 SUPERVISION OF NORMAL FIRST 02/10/2014 HELLJOHNNIE MARKETING DATABASE CONSULTANT YELENA E V22.0 SUPERVISION OF NORMAL FIRST [...] K V22.0 SUPERVISION OF NORMAL FIRST 02/10/2014 MAXIMYELENA BLAIR APRN V22.0 SUPERVISION OF NORMAL FIRST 02/10/2014 YELENA TUCKER APRN V22.0 SUPERVISION OF NORMAL FIRST 02/10/2014 MC DO, MARTI K V22.0 SUPERVISION OF NORMAL FIRST 02/10/2014 MAXIMYELENA BLAIR APRN V22.0 SUPERVISION OF NORMAL FIRST 02/10/2014 [...] , HIGH RISK - YOUNG PRIMIGRAVIDA 04/12/2014 MAXIMYELENA BLAIR APRN V23.83 , HIGH RISK - YOUNG PRIMIGRAVIDA 04/12/2014 MAXIMYELENA BLAIR APRN V23.83 , HIGH RISK - YOUNG PRIMIGRAVIDA 04/12/2014 MC DO, MARTI K V23.83 , HIGH RISK - YOUNG PRIMIGRAVIDA 04/12/2014 HELSUKH MARKETING DATABASE CONSULTANTIFEANYI PaezE E V23.83 , HIGH RISK - YOUNG [...] V89.03 SUSPECTED ANOMALY NOT FOUND 04/14/2014 GARRETT MARKETING DATABASE CONSULTANT, YELENA E V74.5 STD SCREEN 04/14/2014 HELSalvatoreWIG MARKETING DATABASE CONSULTANT, YELENA E V89.03 SUSPECTED ANOMALY NOT FOUND 04/14/2014 HELLWIG MARKETING DATABASE CONSULTANT, YELENA E V74.5 STD SCREEN 04/14/2014 HELLWIG MARKETING DATABASE CONSULTANT, YELENA E V89.03 SUSPECTED ANOMALY NOT FOUND 04/14/2014 MC DO, MARTI K V74.5 STD SCREEN 04/14/2014 MC DO, MARTI K V89.03 SUSPECTED ANOMALY NOT FOUND 04/14/2014 HELLWIG MARKETING DATABASE CONSULTANT, YELENA E V74.5 STD SCREEN 04/14/2014 HELLWIG MARKETING DATABASE CONSULTANT, YELENA E V89.03 SUSPECTED ANOMALY NOT FOUND 04/14/2014 MC DO, MARTI K V74.5 STD SCREEN 04/14/2014 MC DO, MARTI K V89.03 SUSPECTED ANOMALY NOT FOUND 04/14/2014 MC DO, MARTI K V74.5 STD SCREEN 04/14/2014 MC DO, MARTI K V89.03 SUSPECTED ANOMALY NOT FOUND 04/15/2014 CHANCE URBANO MD N Ot 625.9 FEM GENITAL SYMPTOMS NOS 04/15/2014 CHANCE URBANO MD Ot 648.93 OTH CURR COND-ANTEPARTUM 05/05/2014 MC DO, MARTI K V04.81 FLU SHOT 05/05/2014 MC DO, MARTI K V04.81 FLU SHOT 05/05/2014 MC DO, MARTI K V04.81 FLU SHOT 05/05/2014 MC DO, MARTI K V04.81 FLU SHOT 05/05/2014 MC DO, MARTI K V04.81 FLU SHOT 05/05/2014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
--- NOTE | 2018-03-18 17:07 | ED GU-Female ---
General Chief Complaint: -Female Stated Complaint: MISCARRIAGE 9W Nursing Triage Note: ARRIVED VIA AMB TO ROOM 04. STATES SHE IS APPX 9 WEEKS GESTATION AND HAD A ULTRASOUND DONE HERE TODAY THAT SHOWED NO HEARTBEAT. STATES SHE TALKED WITH [facility]S OFFICE WHO TOLD HER SHE NEEDED A D&C BUT NOT TOLD WHEN OR HOW. CAME HERE TO GET ANSWERS. Nursing Sepsis Screen: No Definite Risk Source: patient Exam Limitations: no limitations History of Present Illness Date Seen by Provider: Mar 18, 2018 Time Seen by Provider: 17:02 Initial Comments Patient is a 22-year-old female who presents to the emergency room with complaints of a miscarriage. She had an ultrasound today that showed that there was no heartbeat. She had an appointment with Dr. Urbano today after her ultrasound appointment and they told her that she would probably need a D&C and that the hospital will be calling with the date and time. She states that she came here for answers. She denies fevers, abdominal pain reports nausea. Timing/Duration: this morning Associated Symptoms: nausea/vomiting Allergies and Home Medications Allergies Coded Allergies: No Known Drug Allergies (Unverified , 11/29/08) Home Medications Ondansetron 4 Mg Tab.rapdis, 4 MG PO Q6H PRN for NAUSEA/VOMITING Prescribed by: HEATHER JACKSON on 04/14/16 1001 Patient Home Medication List Home Medication List Reviewed: Yes Review of Systems Constitutional: see HPI; No chills, No fever Genitourinary: see HPI : Yes (miscarriage) Past Lmumwgx-Zahncz-Uzuxmj Hx Past Med/Social Hx: Reviewed Nursing Past Med/Soc Hx Patient Social History Alcohol Use: Denies Use Recreational Drug Use: No Smoking Status: Current Everyday Smoker Type Used: Cigarettes Recent Foreign Travel: No Contact w/Someone Who Travel: No Recent Infectious Disease Expo: No Recent Hopitalizations: No Immunizations Up To Date Tetanus Booster (TDap): Less than 5yrs Date of Influenza Vaccine: May 05, 2014 Past Medical History Surgeries: No Respiratory: No Cardiac: No Neurological: No : Yes Last Menstrual Period: Jan 10, 2018 Reproductive Disorders: No Female Reproductive Disorders: Denies HIV/AIDS: No Gastrointestinal: No Musculoskeletal: No Endocrine: No HEENT: No Cancer: No Psychosocial: No Integumentary: No Blood Disorders: No Adverse Reaction/Blood Tranf: No Family Medical History Reviewed Nursing Family Hx Patient reports no known family medical history. No Pertinent Family Hx Physical Exam Vital Signs Vital Signs - First Documented 03/18/18 03/18/18 16:25 19:01 Temp 99.6 Pulse 76 Resp 16 B/P (MAP) 123/73 (90) Pulse Ox 100 O2 Delivery Room Air Capillary Refill : Less Than 3 Seconds Height, Weight, BMI Height: 5'7.00" Weight: 198lbs. oz. 89.845631fg; 21.09 BMI Method:Stated General Appearance: WD/WN, no apparent distress Cardiovascular: regular rate, rhythm, no edema, no gallop, no JVD, no murmur Respiratory: chest non-tender, lungs clear, normal breath sounds, no respiratory distress, no accessory muscle use Neurologic/Psychiatric: alert, normal mood/affect, oriented x 3 Skin: normal color, warm/dry Lymphatic: no adenopathy Progress/Results/Core Measures Suspected Sepsis Recent Fever Within 48 Hours: No Infection Criteria Present: None New/Unexplained Altered Menta: No Sepsis Screen: No Definite Risk SIRS Temperature:99.6 Pulse: 76 Respiratory Rate: Laboratory Tests 03/18/18 17:31: White Blood Count 10.8 Blood Pressure 123 /73 Mean: 90 Laboratory Tests 03/18/18 17:31: Creatinine 0.59L, Platelet Count 150, Total Bilirubin 0.3 Results/Orders Lab Results Laboratory Tests Test 03/18/18 17:31 Range/Units White Blood Count 10.8 4.3-11.0 10^3/uL Red Blood Count 4.67 4.35-5.85 10^6/uL Hemoglobin 14.8 11.5-16.0 G/DL Hematocrit 42 35-52 % Mean Corpuscular Volume 89 80-99 FL Mean Corpuscular Hemoglobin 32 25-34 PG Mean Corpuscular Hemoglobin Concent 36 32-36 G/DL Red Cell Distribution Width 11.8 10.0-14.5 % Platelet Count 150 130-400 10^3/uL Mean Platelet Volume 9.4 7.4-10.4 FL Sodium Level 137 135-145 MMOL/L Potassium Level 3.7 3.6-5.0 MMOL/L Chloride Level 105 98-107 MMOL/L Carbon Dioxide Level 23 21-32 MMOL/L Anion Gap 9 5-14 MMOL/L Blood Urea Nitrogen 5 L 7-18 MG/DL Creatinine 0.59 L 0.60-1.30 MG/DL Estimat Glomerular Filtration Rate > 60 BUN/Creatinine Ratio 8 Glucose Level 112 H 70-105 MG/DL Calcium Level 9.2 8.5-10.1 MG/DL Corrected Calcium 9.0 8.5-10.1 MG/DL Total Bilirubin 0.3 0.1-1.0 MG/DL Aspartate Amino Transf (AST/SGOT) 11 5-34 U/L Alanine Aminotransferase (ALT/SGPT) 16 0-55 U/L Alkaline Phosphatase 59 40-136 U/L Total Protein 7.0 6.4-8.2 GM/DL Albumin 4.3 3.2-4.5 GM/DL My Orders Orders - VALENTINE LION Cbc No Diff (03/18/18 17:07) Comprehensive Metabolic Panel (03/18/18 17:07) Vital Signs/I&O Capillary Refill : Less Than 3 Seconds Blood Pressure Mean: 90 Progress Note : Time: 18:00 Progress Note I have seen and evaluated the patient. I have reviewed her ultrasound she had earlier this morning I have attached to this document. I informed the patient that she needs to follow up with Dr. Urbano and adhere to the plan of care was already in place prior to arrival to the emergency room. I informed her of normal lab values. Patient agrees with my plan of care, plans for discharge, close follow Dr. Urbano, return precautions were given. Diagnostic Imaging Comments NAME: RODRÍGUEZ TINAJERO [facility] REC#: [id number] PT STATUS: REG CLI : 1995 PHYSICIAN: CHANCE URBANO MD ADMIT DATE: 03/18/18/RAD Signed Date of Exam: 03/18/18 OB TRANSVAGINAL [id number] Indication: dating. There is an intrauterine gestational sac containing a pole. The crown-rump length measurement is 21 mm consistent with 8 weeks 6 days gestation. However, no heart motion was detected consistent with demise. No perigestational sac hemorrhage is identified. Gestational sac shape is within normal limits. Ovaries were not visualized due to bowel gas. Impression: Findings consistent with 8 weeks 6 days intrauterine demise. Dictated by: Dictated on workstation # [id number] Dict: 03/18/18 1330 Trans: 03/18/18 1800 Interpreted by: VENKAT PATRICIA MD Electronically signed by: VENKAT PATRICIA MD 03/18/18 1800 Departure Impression Primary Impression: Miscarriage Disposition: 01 HOME, SELF-CARE Condition: Stable/Unchanged Departure-Patient Inst. Decision time for Depature: 18:40 Referrals: NO,LOCAL PHYSICIAN (PCP/Family) Primary Care Physician Patient Instructions: Miscarriage (DC) Add. Discharge Instructions: Follow-up with Dr. Urbano's office within 1 week for recheck. Return back to the emergency room for any worsening vaginal bleeding, increased pain, fevers, or any other concerns as needed. All discharge instructions reviewed with patient and/or family. Voiced understanding. VALENTINE LION Mar 18, 2018 17:07
[2018-03-18 17:36] LABS: HEMOGLOBIN 14.8 G/DL (11.5-16.0); MEAN PLATELET VOLUME 9.4 FL (7.4-10.4); RED BLOOD COUNT 4.67 10^6/uL (4.35-5.85); RED CELL DISTRIBUTION WIDTH 11.8 % (10.0-14.5); WHITE BLOOD COUNT 10.8 10^3/uL (4.3-11.0)
[2018-03-18 18:29] LABS: ALANINE AMINOTRANSFERASE 16 U/L (0-55); ALBUMIN 4.3 GM/DL (3.2-4.5); ALKALINE PHOSPHATASE 59 U/L (40-136); BILIRUBIN,TOTAL 0.3 MG/DL (0.1-1.0); BUN/CREATININE RATIO 8; CALCIUM 9.2 MG/DL (8.5-10.1); CARBON DIOXIDE 23 MMOL/L (21-32); CHLORIDE 105 MMOL/L (98-107); CREATININE SERUM 0.59 MG/DL (0.60-1.30); GFR ESTIMATED > 60; GLUCOSE 112 MG/DL (70-105); POTASSIUM 3.7 MMOL/L (3.6-5.0); SODIUM 137 MMOL/L (135-145)
[2018-03-18 19:01] VITALS: BP 130/58
== END 2018-03-18 19:01 | disposition home or self-care (01) ==
LOC: EDUNIT# 15:46 → ER 15:48
DX: O03.9 Complete or unspecified spontaneous abortion without complication (principal); F17.210 Nicotine dependence, cigarettes, uncomplicated
CPT/HCPCS: 36415; 80053; 85027; 99281

== ENCOUNTER → 2018-03-18 | Outpatient (CLI) | payer MEDICAID ==
--- NOTE | 2018-03-18 13:34 | Diagnostic Imaging Report ---
Indication: dating. There is an intrauterine gestational sac containing a pole. The crown-rump length measurement is 21 mm consistent with 8 weeks 6 days gestation. However, no heart motion was detected consistent with demise. No perigestational sac hemorrhage is identified. Gestational sac shape is within normal limits. Ovaries were not visualized due to bowel gas. Impression: Findings consistent with 8 weeks 6 days intrauterine demise. Dictated by: Dictated on workstation # [id number]
== END ==
LOC: RAD 12:44
PROVIDERS: ATTEND Family Medicine
DX: Z34.81 Encounter for supervision of other normal pregnancy, first trimester (principal); Z3A.08 8 weeks gestation of pregnancy
CPT/HCPCS: 76817

== ENCOUNTER 2018-06-29 18:27 | Emergency (ER) | payer MEDICAID ==
[~2018-06-29] VITALS: Ht 172.7 cm; Wt 81.6 kg
--- OUTSIDE RECORDS SUMMARY | 2018-06-29 18:33 | XMS REPORT ---
Author Author CHANCE URBANO Organization [facility] Address [address] [place] [address] Care Team Providers Care Fur Puller Name Role Phone CHANCE URBANO Unavailable PROBLEMS Type Condition ICD9-CM Code BOQ99-RK Code Onset Dates Condition Status SNOMED Code Problem History of delivery, currently O09.219 Active [id number] ALLERGIES No Information ENCOUNTERS Encounter Location Date Diagnosis [facility] [address] [id number] Jun, [facility] [address] [address] Mar, Missed O02.1 [facility] [address] [address] Mar, care, subsequent in first trimester Z34.81 ; 8 weeks gestation of Z3A.08 and History of delivery, currently O09.219 [facility] [id number] [place] [address] Mar, [facility] [address] [address] Feb, [facility] [address] [address] Feb, Encounter for test, result unknown Z32.00 [facility] [address] [address] Jan, [facility] [address] [address] Jan, [facility] [address] [address] Jan, Urinary frequency R35.0 and Pelvic pain R10.2 [facility] [id number] [place] [address] May, General medical exam Z00.00 and Fatigue, unspecified type R53.83 [facility] [id number] [place] [address] May, General medical exam Z00.00 and Fatigue, unspecified type R53.83 [facility] [id number] [place] [address] [id number] Sep, Post-nasal drip R09.[address] [id number] Jun, [address] [id number] Jun, Vaginal odor N89.8 ; High risk sexual behavior Z72.51 and Depo-Provera contraceptive status Z30.40 [id number] [place] [address] [id number] Feb, Encounter for Depo-Provera contraception Z30.42 [facility] [id number] [place] [address]- [address] December, [facility] [id number] [place] [address] [id number] December, [id number] [place] [address] [id number] Nov, [address] [id number] Nov, High risk bisexual behavior Z72.53 and Trichomonas infection A59.9 [facility] [address] [address] Nov, Encounter for Depo-Provera contraception Z30.42 and Encounter for immunization Z23 [facility] [id number] [place] [address] Nov, Acute sinusitis J01.90 [address] [id number] Sep, Acute frontal sinusitis, recurrence not specified J01.10 [id number] [place] [address] [id number] Aug, High risk sexual behavior Z72.51 and Trichomonas infection A59.9 [address] [place] [address] [id number] Jul, [address] [place] [address] [id number] Jun, [address] [place] [address] [id number] May, Screening for STD sexually transmitted disease Z11.3 and Encounter for immunization Z23 [address] [place] [address] [id number] May, [facility] [address] [place] [id number] [place] [address] [id number] Apr, [id number] [place] [address] [id number] Apr, Leukorrhea 623.5 [id number] [place] [address] [id number] Mar, Routine child health exam V20.2 ; Encounter for Depo-Provera contraception V25.49 ; Dietary counseling and surveillance V65.3 ; Exercise counseling V65.41 and GARDASIL (HPV) DX V04.89 [address] [id number] Feb, Insect bite 919.4 [address] [place] [address] [id number] December, [facility] [address] [address] Nov, [facility] [id number] [place] [address]- 9[address] Nov, [address] [place] [address] [id number] Sep, [facility] [place] [facility] [address] [id number] [place] [address]- [address] Sep, [facility] [address] [id number] [place] [id number] Sep, [facility] [place] [facility] [address] [id number] [place] [address]- 4[address] Sep, [facility] [address] [facility] [id number] [place] [id number] Aug, [facility] [place] [facility] [address] [id number] [place] [address]- 2358 Aug, [facility] [address] [facility] [id number] [place] [id number] Jul, [facility] [place] [facility] [address] [facility] [id number] [place] [address]- 37[address] Jul, [facility] [place] [facility] [address] [id number] [address] Jul, [facility] [place] [facility] [address] [facility] [id number] [place] [address]- 6726 Jul, [facility] [place] [facility] [address] [facility] [id number] [place] [address]- [address] Jul, [facility] [address] [facility] [id number] [id number] Jul, [facility] [place] [facility] [address] [facility] [id number] [place] [address] Jul, [facility] [place] [facility] [address] [facility] [id number] [place] [address]- 4984 Jul, [facility] [address] [facility] [id number] [place] [id number] Jul, [facility] [place] [facility] [address] [facility] [id number] [place] [address]- 3470 Jul, [facility] [place] [facility] [address] [facility] [id number] [place] [address]- 1020 Jul, [facility] [address] [id number] [place] [id number] Jul, [facility] [place] [facility] [address] [id number] [place] [address]- 3866 Jul, [facility] [address] [id number] [place] [id number] Jul, [facility] [address] [id number] [place] [id number] Jul, [facility] [place] [facility] [address] [id number] [place] [address]- 7567 Jul, [facility] [place] [facility] [address] [id number] [place] [address]- 3665 Jul, [facility] [address] [facility] [id number] [place] [id number] Jul, [facility] [place] [facility] [address] [facility] [id number], [place] [address]- 25[address] Jul, [facility] [place] [facility] [address] [facility] [id number], [place] [address]- 7060 Jul, [facility] [place] [facility] [address] [id number], [place] [address]- 0[address] Jul, [facility] [address] [facility] [id number][place] [id number] Jul, [facility] [place] [facility] [address] [facility] [id number], [place] [address]- 9409 Jul, [facility] [place] [facility] [address] [id number], [place] [address]- 3708 Jul, [facility] [address] [facility] [id number] [place] [id number] Jul, [facility] [place] [facility] [address] [id number]- 6[address] Jul, [facility] [place] [facility] [address] [id number]358[place]- [address] Jul, [facility] [place] [facility] [address] [facility] [id number], [place] [address]- 64[address] Jul, [facility] [address] [id number] [place] [id number] Jun, [facility] [place] [facility] [address] [id number] [place] [address]- 4186 Jun, [facility] [address] [id number] [place] [id number] Jun, [facility] [place] [facility] [address] [id number] [place] [address]- 5199 Jun, [facility] [address] [id number] [place] [id number] Jun, [facility] [place] [facility] [address] [id number] [place] [address]- 1519 Jun, [facility] [place] [facility] [address] [facility] [id number], [place] [address]- 8417 May, [facility] [address] [id number][place] [id number] May, [facility] [address] [facility] [id number] [id number] May, [facility] [place] [facility] [address] [id number], [place] [address]- 4[address] May, [facility] [place] [facility] [address] [facility] [id number], [place] [address]- 1336 May, [facility] [place] [facility] [address] [id number], [place] [address]- 1910 May, [facility] [address] [facility] [id number][place] [id number] May, [facility] [place] [facility] [address] [id number], [place] [address]- 8518 May, [facility] [place] [facility] [address] [facility] [id number], [place] [address]- 3838 May, [facility] [place] [facility] [address] [id number], [place] [address]- 8296 Apr, [facility] [place] [facility] [address] [id number] [place] [address]- 9163 Apr, [facility] [place] [facility] [address] [id number] [place] [address]- 7450 Apr, [facility] [place] [facility] [address] [id number] [place] [address]- 8576 Apr, [facility] [place] [facility] [address] [id number] [place] [address]- 7000 Apr, [facility] [place] [facility] [address] [id number] [place] [address]- 1199 Apr, [facility] [address] [facility] [id number][place] [id number] Apr, [facility] [place] [facility] [address] [facility] [id number] [place] [address]- 3421 Apr, [facility] [place] [facility] [address] [facility] [id number] [place] [address]- 0564 Apr, [facility] [address] [facility] [id number][place] [id number] Apr, [facility] [place] [facility] [address] [id number] [place] [address]- 1143 Apr, [facility] [place] [facility] [address] [facility] [id number], [place] [address]- 5058 Mar, [facility] [place] [facility] [address] [id number], [place] [address]- 6723 Mar, [facility] [address] [facility] [id number][place] [id number] Mar, [facility] [place] [facility] [address] [id number] [place] [address]- 0201 Mar, [facility] [place] [facility] [address] [facility] [id number], [place] [address]- 1169 Feb, [facility] [address] [facility] [id number], [place] [id number] Feb, [facility] [place] [facility] [address] [id number], [place] [address]- 9998 Feb, [facility] [place] [facility] [address] [facility] [id number] [place] [address]- 7503 Feb, [facility] [place] [facility] [address] [facility] [id number], [place] [address]- 6834 Feb, [facility] [address] [id number] [place] [id number] Feb, [facility] [address] [id number] [place] [id number] Feb, [facility] [place] [facility] [address] [facility] [id number] [place] [address] Feb, [facility] [place] [facility] [address] [facility] [id number] [place] [address]- 2386 Feb, [facility] [address] [facility] [id number] [place] [id number] Jan, [facility] [place] [facility] [address] [facility] [id number], [place] [address]- 2570 Jan, [facility] [address] [id number] [place] [id number] Jan, [facility] [place] [facility] [address] [facility] [id number], [place] [address]- 8886 Jan, [facility] [address] [id number] [place] [id number] Jan, [facility] [place] [facility] [address] [facility] [id number], [place] [address]- 0966 Jan, [facility] [address] [id number] [place] [id number] Nov, [facility] [place] [facility] [address] [facility] [id number], [place] [address]- 0204 Nov, [facility] [address] [id number] [place] [id number] Oct, [facility] [place] [facility] [address] [facility] [id number] [place] [address]- 0456 Oct, [facility] [address] [id number] [place] [id number] Sep, [facility] [address] [facility] [id number], [place] [address]- 9696 Sep, [facility] [address] [id number], [place] [id number] Sep, [facility] [address] [facility] [id number], [place] [address]- 0146 Sep, [facility] [address] [facility] [id number], [place] [address]- 4380 Sep, [facility] [address] [facility] [id number], [place] [address]- 0329 Sep, [facility] [address] [facility] [id number], [place] [address]- 6884 Aug, [facility] [address]00565100[place], [place] [address]- 75[address] Aug, [facility] [address] [id number], [place] [id number] Aug, [facility] [address] [id number], [place] [address]- 6848 Aug, [facility] [address] [id number], [place] [id number] May, [facility] [address] [id number], [place] [address]- 2546 May, [facility] [address] [id number], [place] [id number] Apr, [facility] [address] [id number] [place] [id number] Mar, [facility] [address] [id number] [place] [id number] Mar, [facility] [address] [id number] [place] [id number] Oct, [facility] [address] [id number][place] [id number] Aug, [facility] [address] [id number][place] [id number] Aug, [facility] [address] [facility] [id number][place] [id number] Aug, [facility] [address] [id number] [id number] Jun, [facility] [address]00565100[place], [place] [address]- [address] Jun, [facility] [address] [id number] [id number] Nov, [facility] [address]00565100[place], [place] [address]- 25[address] Sep, [facility] [address]00565100[place], [place] [address]- 25[address] May, [facility] [address]00565100[place], [place] [address]- 2546 May, IMMUNIZATIONS No Known Immunizations SOCIAL HISTORY Never Assessed REASON FOR VISIT VN-rtrpok-fspfpt PLAN OF CARE Activity Details Follow Up 4W, 4 Weeks Reason: VITAL SIGNS Height 67 in 2018-03-12 Weight 196.6 lbs 2018-03-12 Temperature 97.7 degrees Fahrenheit 2018-03-12 Heart Rate 89 bpm 2018-03-12 Respiratory Rate 20 2018-03-12 BMI 30.792 kg/m2 2018-03-12 Blood pressure systolic 118 mmHg 2018-03-12 Blood pressure diastolic 62 mmHg 2018-03-12 MEDICATIONS Medication Instructions Dosage Frequency Start Date End Date Duration Status 28-0.8 MG Orally Once a day 1 tablet 24h Not-Taking RESULTS No Results PROCEDURES Procedure Date Ordered Result Body Site No Charge Mar 12, 2018 LAB NOT BILLED BY [facility] Mar 12, 2018 URINALYSIS, AUTO, W/O SCOPE Mar 12, 2018 VENIPUNCT, ROUTINE* Mar 12, 2018 INSTRUCTIONS MEDICATIONS ADMINISTERED No Known Medications MEDICAL (GENERAL) HISTORY Type Description Date Medical History chlamydia Hospitalization History childbirth 2013
--- OUTSIDE RECORDS SUMMARY | 2018-06-29 18:33 | XMS REPORT ---
Author Author CHANCE URBANO Organization [facility] Address [address] [place] [address] Care Team Providers Care Assistant Sales Manager Name Role Phone CHANCE URBANO Unavailable PROBLEMS Type Condition ICD9-CM Code IHG55-EZ Code Onset Dates Condition Status SNOMED Code Problem History of delivery, currently O09.219 Active [id number] ALLERGIES No Information ENCOUNTERS Encounter Location Date Diagnosis [facility] [address] [id number] Jun, [facility] [address] [address] Mar, Missed O02.1 [facility] [address] [address] Mar, care, subsequent in first trimester Z34.81 ; 8 weeks gestation of Z3A.08 and History of delivery, currently O09.219 [facility] [id number] [place] [address] Mar, [facility] [address] [address] Feb, [facility] [address] [address] Feb, Encounter for test, result unknown Z32.00 [facility] [address] [address] Jan, [facility] [address] [address] Jan, [facility] [address] [address] Jan, Urinary frequency R35.0 and Pelvic pain R10.2 [facility] [id number] [place] [address]- [address] May, General medical exam Z00.00 and Fatigue, unspecified type R53.83 [facility] [id number] [place] [address]- [address]278 May, General medical exam Z00.00 and Fatigue, unspecified type R53.83 [facility] [id number] [place] [address] [id number] Sep, Post-nasal drip R09.[address] [id number] Jun, [address] [id number] Jun, Vaginal odor N89.8 ; High risk sexual behavior Z72.51 and Depo-Provera contraceptive status Z30.40 [id number] [place] [address] [id number] Feb, Encounter for Depo-Provera contraception Z30.42 [facility] [id number] [place] [address] December, [facility] [id number] [place] [address] [id number] December, [address] [place] [id number] [place] [address] [id number] Nov, [address] [id number] Nov, High risk bisexual behavior Z72.53 and Trichomonas infection A59.9 [facility] [address] [address] Nov, Encounter for Depo-Provera contraception Z30.42 and Encounter for immunization Z23 [facility] [id number] [place] [address]671 Nov, Acute sinusitis J01.90 [address] [id number] Sep, Acute frontal sinusitis, recurrence not specified J01.10 [id number] [place] [address] [id number] Aug, High risk sexual behavior Z72.51 and Trichomonas infection A59.9 [address] [place] [address] [id number] Jul, [address] [place] [address] [id number] Jun, [address] [place] [address] [id number] May, Screening for STD sexually transmitted disease Z11.3 and Encounter for immunization Z23 [address] [place] [address] [id number] May, [facility] [address] [place] [id number] [place] [address] [id number] Apr, [id number] [place] [address] [id number] Apr, Leukorrhea 623.[id number] [place] [address] [id number] Mar, Routine child health exam V20.2 ; Encounter for Depo-Provera contraception V25.49 ; Dietary counseling and surveillance V65.3 ; Exercise counseling V65.41 and GARDASIL (HPV) DX V04.89 [address] [id number] Feb, Insect bite 919.4 [address] [place] [address] [id number] December, [facility] [address] [address] Nov, [facility] [id number] [place] [address]33- [address] Nov, [address] [place] [address] [id number] Sep, [facility] [place] [facility] [address] [id number] [place] [address] Sep, [facility] [address] [id number] [place] [id number] Sep, [facility] [place] [facility] [address] [id number] [place] [address]- 2466 Sep, [facility] [address] [facility] [id number] [place] [id number] Aug, [facility] [place] [facility] [address] [id number] [place] [address]- 1648 Aug, [facility] [address] [facility] [id number] [place] [id number] Jul, [facility] [place] [facility] [address] [facility] [id number] [place] [address]- 9130 Jul, [facility] [place] [facility] [address] [id number] [place] Jul, [facility] [place] [facility] [address] [facility] [id number] [place] [address]- 0637 Jul, [facility] [place] [facility] [address] [facility] [id number] [place] [address] Jul, [facility] [address] [facility] [id number][place] [id number] Jul, [facility] [place] [facility] [address] [facility] [id number] [place] [address] Jul, [facility] [place] [facility] [address] [facility] [id number] [place] [address]- 8207 Jul, [facility] [address] [facility] [id number] [place] [id number] Jul, [facility] [place] [facility] [address] [facility] [id number] [place] [address]- 8454 Jul, [facility] [place] [facility] [address] [facility] [id number] [place] [address]- 8883 Jul, [facility] [address] [id number] [place] [id number] Jul, [facility] [place] [facility] [address] [id number] [place] [address]- 37[address] Jul, [facility] [address] [id number] [place] [id number] Jul, [facility] [address] [id number] [place] [id number] Jul, [facility] [place] [facility] [address] [id number] [place] [address]- 2885 Jul, [facility] [place] [facility] [address] [id number] [place] [address]- 6230 Jul, [facility] [address] [facility] [id number] [place] [id number] Jul, [facility] [place] [facility] [address] [facility] [id number] [place] [address]- 1660 Jul, [facility] [place] [facility] [address] [facility] [id number] [place] [address]- 9419 Jul, [facility] [place] [facility] [address] [id number] [place] [address]- 4967 Jul, [facility] [address] [facility] [id number][place] [id number] Jul, [facility] [place] [facility] [address] [facility] [id number] [place] [address]- 4254 Jul, [facility] [place] [facility] [address] [id number] [place] [address]- 6504 Jul, [facility] [address] [facility] [id number] [place] [id number] Jul, [facility] [place] [facility] [address] [id number] [place]- 9[address] Jul, [facility] [place] [facility] [address] [id number] [place]- [address]30 Jul, [facility] [place] [facility] [address] [facility] [id number] [place] [address]- 4862 Jul, [facility] [address] [id number] [place] [id number] Jun, [facility] [place] [facility] [address] [id number] [place] [address]- 8076 Jun, [facility] [address] [id number] [place] [id number] Jun, [facility] [place] [facility] [address] [id number] [place] [address]- 6139 Jun, [facility] [address] [id number] [place] [id number] Jun, [facility] [place] [facility] [address] [id number] [place] [address]- 3508 Jun, [facility] [place] [facility] [address] [facility] [id number] [place] [address]- 7873 May, [facility] [address] [id number][place] [id number] May, [facility] [address] [facility] [id number][place] [id number] May, [facility] [place] [facility] [address] [id number] [place] [address]- 8226 May, [facility] [place] [facility] [address] [facility] [id number] [place] [address]- 7574 May, [facility] [place] [facility] [address] [id number] [place] [address]- 5929 May, [facility] [address] [facility] [id number][place] [id number] May, [facility] [place] [facility] [address] [id number] [place] [address]- 5769 May, [facility] [place] [facility] [address] [facility] [id number] [place] [address]- 2266 May, [facility] [place] [facility] [address] [id number] [place] [address]- 7471 Apr, [facility] [place] [facility] [address] [id number] [place] [address]- 4144 Apr, [facility] [place] [facility] [address] [id number] [place] [address]- 4203 Apr, [facility] [place] [facility] [address] [id number] [place] [address]- 4816 Apr, [facility] [place] [facility] [address] [id number] [place] [address]- 5892 Apr, [facility] [place] [facility] [address] [id number] [place] [address]- 5054 Apr, [facility] [address] [facility] [id number][place] [id number] Apr, [facility] [place] [facility] [address] [facility] [id number] [place] [address]- 1068 Apr, [facility] [place] [facility] [address] [facility] [id number] [place] [address]- 2610 Apr, [facility] [address] [facility] [id number][place] [id number] Apr, [facility] [place] [facility] [address] [id number] [place] [address]- 2144 Apr, [facility] [place] [facility] [address] [facility] [id number] [place] [address]- 3339 Mar, [facility] [place] [facility] [address] [id number] [place] [address]- 5703 Mar, [facility] [address] [facility] [id number][place] [id number] Mar, [facility] [place] [facility] [address] [id number] [place] [address]- 0379 Mar, [facility] [place] [facility] [address] [facility] [id number] [place] [address]- 6660 Feb, [facility] [address] [facility] [id number][place] [id number] Feb, [facility] [place] [facility] [address] [id number] [place] [address]- 9551 Feb, [facility] [place] [facility] [address] [facility] [id number] [place] [address]- 3281 Feb, [facility] [place] [facility] [address] [facility] [id number] [place] [address]- 7581 Feb, [facility] [address] [id number] [id number] Feb, [facility] [address] [id number] [place] [id number] Feb, [facility] [place] [facility] [address] [facility] [id number] [place] 1339 Feb, [facility] [place] [facility] [address] [facility] [id number] [place] [address]- 7305 Feb, [facility] [address] [facility] [id number] [place] [id number] Jan, [facility] [place] [facility] [address] [facility] [id number] [place] [address]- 4683 Jan, [facility] [address] [id number] [place] [id number] Jan, [facility] [place] [facility] [address] [facility] [id number] [place] [address]- 0584 Jan, [facility] [address] [id number] [place] [id number] Jan, [facility] [place] [facility] [address] [facility] [id number] [place] [address]- 7409 Jan, [facility] [address] [id number] [place] [id number] Nov, [facility] [place] [facility] [address] [facility] [id number] [place] [address]- 8394 Nov, [facility] [address] [id number] [place] [id number] Oct, [facility] [place] [facility] [address] [facility] [id number] [place] [address]- 9300 Oct, [facility] [address] [id number] [place] [id number] Sep, [facility] [address] [facility] [id number] [place] [address]- 6946 Sep, [facility] [address] [id number][place] [address]3622[address] Sep, [facility] [address] [facility] [id number] [place] [address]- 2216 Sep, [facility] [address] [facility] [id number] [place] [address]- 3236 Sep, [facility] [address] [facility] [id number] [place] [address]- 6296 Sep, [facility] [address] [facility] [id number] [place] [address]- 9912 Aug, [facility] [address] [address]- 8829 Aug, [facility] [address] [id number], [place] [id number] Aug, [facility] [address] [id number] [address]- 8008 Aug, [facility] [address] [id number], [place] [id number] May, [facility] [address] [id number] [address]- 2546 May, [facility] [address] [id number], [place] [id number] Apr, [facility] [address] [id number] [place] [id number] Mar, [facility] [address] [id number] [place] [address] Mar, [facility] [address] [id number] [place] [id number] Oct, [facility] [address] [id number], [place] [id number] Aug, [facility] [address] [id number] [place] [id number] Aug, [id number] [id number] Aug, [id number] [id number] Jun, [facility] [address] [address]- [address]46 Jun, [id number] [id number] Nov, [facility] [address] [address]- 0[address] Sep, [facility] [address] [address]- 8785 May, [facility] [address] [address]- 9140 May, IMMUNIZATIONS No Known Immunizations SOCIAL HISTORY Never Assessed REASON FOR VISIT Requests return call PLAN OF CARE VITAL SIGNS MEDICATIONS Unknown Medications RESULTS No Results PROCEDURES No Known procedures INSTRUCTIONS MEDICATIONS ADMINISTERED No Known Medications MEDICAL (GENERAL) HISTORY Type Description Date Medical History chlamydia Hospitalization History childbirth 2013
--- OUTSIDE RECORDS SUMMARY | 2018-06-29 18:33 | XMS REPORT ---
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 Name Role Phone CHANCE URBANO Unavailable PROBLEMS Type Condition ICD9-CM Code XQG07-UX Code Onset Dates Condition Status SNOMED Code Problem History of delivery, currently O09.219 Active [id number] ALLERGIES No Known Allergies ENCOUNTERS Encounter Location Date Diagnosis [facility] [address] [id number] Jun, [facility] [address] [address] Mar, Missed O02.1 [facility] [address] [address] Mar, care, subsequent in first trimester Z34.81 ; 8 weeks gestation of Z3A.08 and History of delivery, currently O09.219 [facility] [id number] [place] [address] Mar, [facility] [address] [address] Feb, [facility] [address] [address] Feb, Encounter for test, result unknown Z32.00 [facility] [address] [address] Jan, [facility] [address] [address] Jan, [facility] [address] [address] Jan, Urinary frequency R35.0 and Pelvic pain R10.2 [facility] [id number] [place] [address]- [address] 13 May, 2017 General medical exam Z00.00 and Fatigue, unspecified type R53.83 [facility] [id number] [place] [address]- [address] May, General medical exam Z00.00 and Fatigue, unspecified type R53.83 [facility] [id number] [place] [address] [id number] Sep, Post-nasal drip R09.[address] [id number] Jun, [address] [id number] Jun, Vaginal odor N89.8 ; High risk sexual behavior Z72.51 and Depo-Provera contraceptive status Z30.40 [id number] [place] [address] [id number] Feb, Encounter for Depo-Provera contraception Z30.42 [facility] [id number] [place] [address]- 47[address] December, [address] [id number] [place] [address] [id number] December, [id number] [place] [address] [id number] Nov, [address] [id number] [place] [address] [id number] Nov, High risk bisexual behavior Z72.53 and Trichomonas infection A59.9 [facility] [id number] [place] [address]163- 8626 Nov, Encounter for Depo-Provera contraception Z30.42 and Encounter for immunization Z23 [facility] [id number] [place] [address] Nov, Acute sinusitis J01.90 [address] [id number] Sep, Acute frontal sinusitis, recurrence not specified J01.10 [id number] [place] [address] [id number] Aug, High risk sexual behavior Z72.51 and Trichomonas infection A59.9 [id number] [place] [address] [id number] Jul, [id number] [place] [address] [id number] Jun, [address] [id number] [place] [address] [id number] May, Screening for STD sexually transmitted disease Z11.3 and Encounter for immunization Z23 [address] [place] [address] [id number] May, [facility] [address] [place] [id number] [place] [id number] Apr, [id number] [place] [address] [id number] Apr, Leukorrhea 623.[id number] [place] [address] [id number] Mar, Routine child health exam V20.2 ; Encounter for Depo-Provera contraception V25.49 ; Dietary counseling and surveillance V65.3 ; Exercise counseling V65.41 and GARDASIL (HPV) DX V04.89 [address] [id number] Feb, Insect bite 919.4 [address] [place] [address] [id number] December, [facility] [address] [address] Nov, [facility] [id number] [place] [address]43- [address]39 Nov, [address] [place] [address] [id number] Sep, [facility] [place] [facility] [address] [id number], [place] [address] Sep, [facility] [address] [facility] [id number] [place] [id number] Sep, [facility] [place] [facility] [address] [facility] [id number], [place] [address] Sep, [facility] [address] [facility] [id number][place] [id number] Aug, [facility] [place] [facility] [address] [id number] [place] [address]- [address] Aug, [facility] [address] [facility] [id number] [place] [id number] Jul, [facility] [place] [facility] [address] [facility] [id number], [place] [address]- [address] Jul, [facility] [place] [facility] [address] [address] Jul, [facility] [place] [facility] [address] [facility] [id number] [place] Jul, [facility] [place] [facility] [address] [facility] [id number] [place] Jul, [facility] [address] [id number] [id number] Jul, [facility] [place] [facility] [address] [facility] [id number] [place] [address] 2546 Jul, [facility] [place] [facility] [address] [facility] [id number], [place] [address] 2547 Jul, [facility] [address] [facility] [id number] [place] [id number] Jul, [facility] [place] [facility] [address] [facility] [id number] [place] [address]- 8356 Jul, [facility] [place] [facility] [address] [facility] [id number], [place] [address]- 67[address] Jul, [facility] [address] [id number] [place] [id number] Jul, [facility] [place] [facility] [address] [id number][place] [address]- 6[address] Jul, [facility] [address] [id number] [place] [id number] Jul, [facility] [address] [id number] [place] [id number] Jul, [facility] [place] [facility] [address] [id number], [place] [address]- 48[address] Jul, [facility] [place] [facility] [address] [id number], [place] [address]- [address]16 Jul, [facility] [address] [facility] [id number][place] [id number] Jul, [facility] [place] [facility] [address] [facility] [id number][place] [address]- 9088 Jul, [facility] [place] [facility] [address] [facility] [id number][place] [address]- 8[address] Jul, [facility] [place] [facility] [address] [id number], [place] [address]- 1617 Jul, [facility] [address] [facility] [id number][place] [id number] Jul, [facility] [place] [facility] [address] [facility] [id number][place] [address]- 2580 Jul, [facility] [place] [facility] [address] [id number], [place] [address]- 0143 Jul, [facility] [address] [facility] [id number][place] [id number] Jul, [facility] [place] [facility] [address] [id number], [place] [address]- 0785 Jul, [facility] [place] [facility] [address] [id number], [place] [address]- 8619 Jul, [facility] [place] [facility] [address] [facility] [id number][place] [address]- 2976 Jul, [facility] [address] [id number] [place] [id number] Jun, [facility] [place] [facility] [address] [id number] [place] [address]- 1996 Jun, [facility] [address] [id number] [place] [id number] Jun, [facility] [place] [facility] [address] [id number] [place] [address]- 3466 Jun, [facility] [address] [id number] [place] [id number] Jun, [facility] [place] [facility] [address] [id number] [place] [address]- 8276 Jun, [facility] [place] [facility] [address] [facility] [id number] [place] [address]- 6308 May, [facility] [address] [id number][place] [id number] May, [facility] [address] [facility] [id number][place] [id number] May, [facility] [place] [facility] [address] [id number], [place] [address]- 8970 May, [facility] [place] [facility] [address] [facility] [id number], [place] [address]- 4130 May, [facility] [place] [facility] [address] [facility] [id number], [place] [address]- 9279 May, [facility] [address] [facility] [id number][place] [id number] May, [facility] [place] [facility] [address] [id number], [place] [address]- 7657 May, [facility] [place] [facility] [address] [facility] [id number], [place] [address]- 7779 May, [facility] [place] [facility] [address] [facility] [id number], [place] [address]- 9507 Apr, [facility] [place] [facility] [address] [id number] [place] [address]- 3810 23 Apr, 2013 [facility] [place] [facility] [address] [id number] [place] [address]- 8315 Apr, [facility] [place] [facility] [address] [id number] [place] [address]- 4746 Apr, [facility] [place] [facility] [address] [id number] [place] [address]- 6150 Apr, [facility] [place] [facility] [address] [id number] [place] [address]- 7354 Apr, [facility] [address] [facility] [id number] [place] [id number] Apr, [facility] [place] [facility] [address] [id number] [place] [address]- 5530 Apr, [facility] [place] [facility] [address] [facility] [id number] [place] [address]- 9306 Apr, [facility] [address] [facility] [id number][place] [id number] Apr, [facility] [place] [facility] [address] [id number] [place] [address]- 8104 Apr, [facility] [place] [facility] [address] [facility] [id number][place] [address]- 1238 Mar, [facility] [place] [facility] [address] [id number] [place] [address]- 3047 Mar, [facility] [address] [facility] [id number][place] [id number] Mar, [facility] [place] [facility] [address] [id number] [place] [address]- 2898 Mar, [facility] [place] [facility] [address] [facility] [id number] [place] [address]- 5723 Feb, [facility] [address] [facility] [id number][place] [id number] Feb, [facility] [place] [facility] [address] [id number], [place] [address]- 1505 Feb, [facility] [place] [facility] [address] [id number], [place] [address]- 6862 Feb, [facility] [place] [facility] [address] [facility] [id number], [place] [address]- 0520 Feb, [facility] [address] [id number] [place] [id number] Feb, [facility] [address] [id number] [place] [id number] Feb, [facility] [place] [facility] [address] [facility] [id number] [place] [address]- 0852 Feb, [facility] [place] [facility] [address] [facility] [id number][place] [address]- 1789 Feb, [facility] [address] [id number] [place] [id number] Jan, [facility] [place] [facility] [address] [facility] [id number], [place] [address]- 6641 Jan, [facility] [address] [id number] [place] [id number] Jan, [facility] [place] [facility] [address] [facility] [id number], [place] [address]- 6654 Jan, [facility] [address] [id number] [place] [id number] Jan, [facility] [place] [facility] [address] [facility] [id number], [place] [address]- 3143 Jan, [facility] [address] [id number] [place] [id number] Nov, [facility] [place] [facility] [address] [facility] [id number], [place] [address]- 3589 Nov, [facility] [address] [id number] [place] [id number] Oct, [facility] [place] [facility] [address] [facility] [id number][place] [address]- 4132 Oct, [facility] [address] [id number] [place] [id number] Sep, [facility] [address] [facility] [id number], [place] [address]- 2066 Sep, [facility] [address] [id number] [place] [id number] Sep, [facility] [address] [facility] [id number], [place] [address]- 4370 Sep, [facility] [address] [facility] [id number], [place] [address]- 7198 Sep, [facility] [address] [facility] [id number], [place] [address]- 3222 Sep, [facility] [address] [facility] [id number] [place] [address]- 7331 Aug, [facility] [address]65[address], [place] [address]- 9643 Aug, [facility] [address] [id number][place] [id number] Aug, [facility] [address]65100[place], [place] [address]- [address] Aug, [facility] [address] [id number], [place] [id number] May, [facility] [address] [facility] [id number][place] [address]- 2546 May, [facility] [address] [id number] [place] [id number] Apr, [facility] [address] [id number] [place] [id number] Mar, [facility] [address] [id number] [place] [id number] Mar, [facility] [address] [id number] [place] [id number] Oct, [facility] [address] [id number] [place] [id number] Aug, [facility] [address] [facility] [id number] [place] [id number] Aug, [facility] [address] [facility] [id number][place] [id number] Aug, [facility] [address] [id number] [id number] Jun, [facility] [address], [place] [address]- 25[address] Jun, [facility] [address] [id number] [id number] Nov, [facility] [address]65100[place], [place] [address]- 2546 Sep, [facility] [address]65[address], [place] [address]- [address] May, [facility] [address]65[address], [place] [address]- 25[address] May, IMMUNIZATIONS No Known Immunizations SOCIAL HISTORY Never Assessed REASON FOR VISIT Ultrasound f/u -- abi gonzales PLAN OF CARE Activity Details Follow Up prn Reason: VITAL SIGNS Height 67 in 2018-03-18 Weight 198.0 lbs 2018-03-18 Temperature 98.0 degrees Fahrenheit 2018-03-18 Heart Rate 80 bpm 2018-03-18 Respiratory Rate 22 2018-03-18 BMI 31.01 kg/m2 2018-03-18 Blood pressure systolic 126 mmHg 2018-03-18 Blood pressure diastolic 80 mmHg 2018-03-18 MEDICATIONS Medication Instructions Dosage Frequency Start Date End Date Duration Status 28-0.8 MG Orally Once a day 1 tablet 24h Active RESULTS No Results PROCEDURES No Known procedures INSTRUCTIONS MEDICATIONS ADMINISTERED No Known Medications MEDICAL (GENERAL) HISTORY Type Description Date Medical History chlamydia Hospitalization History childbirth 2013
--- OUTSIDE RECORDS SUMMARY | 2018-06-29 18:34 | XMS REPORT ---
Author Author BRIAN BAIG Organization [facility] Address [address] [place] [address] Care Team Providers Care Global Marketing Coordinator Name Role Phone BRIAN BAIG Unavailable PROBLEMS Type Condition ICD9-CM Code QAV22-SZ Code Onset Dates Condition Status SNOMED Code Problem History of delivery, currently O09.219 Active [id number] ALLERGIES No Information ENCOUNTERS Encounter Location Date Diagnosis [facility] [id number] [place] [address] [id number] Jun, [facility] [address] [address] Apr, [facility] [address] [address] Mar, Missed O02.1 [facility] [address] [address] Mar, care, subsequent in first trimester Z34.81 ; 8 weeks gestation of Z3A.08 and History of delivery, currently O09.219 [facility] [id number] [place] [address]- 1827 Mar, [facility] [address] [address] Feb, [facility] [address] [address]- [address] Feb, Encounter for test, result unknown Z32.00 [facility] [id number] [place] [address]01 Jan, [facility] [address] [address] Jan, [facility] [address] [id number] [address] Jan, Urinary frequency R35.0 and Pelvic pain R10.2 [facility] [id number] [place] [address] [id number]- 3691 13 May, 2017 General medical exam Z00.00 and Fatigue, unspecified type R53.83 [address] [id number] [place] [address]- 3330 May, General medical exam Z00.00 and Fatigue, unspecified type R53.[address] [id number] Sep, Post-nasal drip R09.82 [id number] [place] [id number] Jun, [address] [id number] Jun, Vaginal odor N89.8 ; High risk sexual behavior Z72.51 and Depo-Provera contraceptive status Z30.[address] [id number] Feb, Encounter for Depo-Provera contraception Z30.42 [place] [address] [place] [address] 17174- 9781 December, [id number] [place] [address] [id number] December, [id number] [place] [address] [id number] Nov, [address] [place] [address] [id number] Nov, High risk bisexual behavior Z72.53 and Trichomonas infection A59.9 [address] [address] [address] [address] Nov, Encounter for Depo-Provera contraception Z30.42 and Encounter for immunization Z23 [facility] [address] [place] [address] -[address]85 07 Nov, 2015 Acute sinusitis J01.90 [id number] [place] [address] [id number] 03 Sep, 2015 Acute frontal sinusitis, recurrence not specified J01.[address] [place] [address] [id number] Aug, High risk sexual behavior Z72.51 and Trichomonas infection A59.9 [address] [place] [address] [id number] Jul, [address] [place] [address] [id number] Jun, [address] [place] [address] [id number] May, Screening for STD sexually transmitted disease Z11.3 and Encounter for immunization Z23 [id number] [place] [address] [id number] May, [id number] [place] [address] [id number] Apr, [id number] [place] [address] [id number] Apr, Leukorrhea 623.5 [address] [place] [address] [id number] Mar, Routine child health exam V20.2 ; Encounter for Depo-Provera contraception V25.49 ; Dietary counseling and surveillance V65.3 ; Exercise counseling V65.41 and GARDASIL (HPV) DX V04.89 [address] [place] [address] [id number] Feb, Insect bite 919.4 [address] [place] [address] [id number] December, [facility] [id number] [place] [address] [id number]- 6142 14 Nov, 2014 [facility] [address] [id number]- 8730 Nov, [facility] [address] [id number] [place] [id number] Sep, [facility] [place] [facility] [address] [id number] [place] [address] 1986 Sep, [facility] [address] [id number] [place] [id number] Sep, [facility] [place] [facility] [address] [facility] [id number], [place] [address] Sep, [facility] [address] [id number] [place] [id number] Aug, [facility] [place] [facility] [address] [facility] [facility] [id number] [place] [address]- 6[address] Aug, [facility] [address] [facility] [id number][place] [id number] Jul, [facility] [place] [facility] [address] [facility] [address] [facility] [id number], [place] [address]- 70[address] Jul, [facility] [place] [facility] [address] [facility] [facility] [id number], [place] 143208- [address]75 Jul, [facility] [place] [facility] [address] [facility] [address] [facility] [id number], [place] 585170- 35[address] Jul, [facility] [place] [facility] [address] [facility] [facility] [id number], [place] 238280- 8273 Jul, [facility] [address] [facility] [id number], [place] [id number] Jul, [facility] [place] [facility] [address] [facility] [facility] [id number], [place] [address]- 3669 Jul, [facility] [place] [facility] [address] [id number] [place] [address]- 2032 Jul, [facility] [address] [facility] [id number] [place] [id number] Jul, [facility] [place] [facility] [address] [facility] [facility] [id number] [place] [address]- 4568 Jul, [facility] [place] [facility] [address] [facility] [facility] [id number], [place] [address]- 9416 Jul, [facility] [address] [facility] [id number] [place] [id number] Jul, [facility] [place] [facility] [address] [facility] [address] [facility] [id number] [place] [address]- 5716 Jul, [facility] [address] [facility] [id number] [place] [id number] Jul, [facility] [address] [facility] [id number][place] [id number] Jul, [facility] [place] [facility] [address] [facility] [facility] [id number] [place] [address]- 9423 Jul, [facility] [place] [facility] [address] [facility] [address] [facility] [id number], [place] [address]- 1762 Jul, [facility] [address] [id number] [id number] Jul, [facility] [place] [facility] [address] [facility] [address] [facility] [id number], [place] [address]- 37[address] Jul, [facility] [place] [facility] [address] [facility] [facility] [id number], [place] [address]- 5084 Jul, [facility] [place] [facility] [address] [id number] [address]67 Jul, [facility] [address] [facility] [id number], [place] [id number] Jul, [facility] [place] [facility] [address] [facility] [address] [facility] [id number], [place] [address]- 1116 Jul, [facility] [place] [facility] [address] [facility] [facility] [id number], [place] [address]- 9884 Jul, [facility] [address] [facility] [id number], [place] [id number] Jul, [facility] [place] [facility] [address] [facility] [address] [facility] [id number], [place] [address] 1953 Jul, [facility] [place] [facility] [address] [facility] [address] [facility] [id number], [place] [address]- 5772 Jul, [facility] [place] [facility] [address] [id number] [place] [address]- 3233 Jul, [facility] [address] [id number] [place] [id number] Jun, [facility] [place] [facility] [address] [id number] [place] [address]- 7236 Jun, [facility] [address] [id number] [place] [id number] Jun, [facility] [place] [facility] [address] [id number] [place] [address]- 2710 Jun, [facility] [address] [id number] [place] [id number] Jun, [facility] [place] [facility] [address] [id number] [place] [address]- 5418 Jun, [facility] [place] [facility] [address] [id number] [place] [address]- 7210 May, [facility] [address] [id number], [place] [id number] May, [facility] [address] [id number] [place] [id number] May, [facility] [place] [facility] [address] [id number], [place]351- 1156 May, [facility] [place] [facility] [address] [facility] [facility] [id number], [place] [address]- 0[address] May, [facility] [place] [facility] [address] [id number], [place] [address]- 5006 May, [facility] [address] [id number] [place] [id number] May, [facility] [place] [facility] [address] [id number], [place] [address]- 6147 May, [facility] [place] [facility] [address] [facility] [id number], [place] [address]- 3989 May, [facility] [place] [facility] [address] [id number] [place] [address]- 9657 Apr, 2013 [facility] [place] [facility] [address] [id number] [place] [address]- 2138 Apr, [facility] [place] [facility] [address] [id number] [place] [address]- 2758 Apr, [facility] [place] [facility] [address] [id number] [place] [address]- 2445 Apr, [facility] [place] [facility] [address] [id number] [place] [address]- 7308 Apr, [facility] [place] [facility] [address] [id number] [place] [address]- 1279 Apr, [facility] [address] [facility] [id number][place] [id number] Apr, [facility] [place] [facility] [address] [facility] [facility] [id number] [place] [address]- 0303 Apr, [facility] [place] [facility] [address] [id number] [place] [address]- 8557 Apr, [facility] [address] [id number], [place] [address]4217 Apr, [facility] [place] [facility] [address] [facility] [facility] [id number] [place] [address]- 6415 Apr, [facility] [place] [facility] [address] [id number], [place] [address]- 3223 Mar, [facility] [place] [facility] [address] [id number], [place] [address]- 8227 Mar, [facility] [address] [id number], [place] [id number] Mar, [facility] [place] [facility] [address] [id number] [place] [address]- 6155 Mar, [facility] [place] [facility] [address] [id number] [place] [address]- 7736 Feb, [facility] [address] [id number] [place] [id number] Feb, [facility] [place] [facility] [address] [id number] [place] [address]- 5185 Feb, [facility] [place] [facility] [address] [facility] [facility] [id number] [place] [address]- 3979 Feb, [facility] [place] [facility] [address] [id number] [place] [address]- 3315 Feb, [facility] [address] [id number] [place] [id number] Feb, [facility] [address] [id number] [place] [id number] Feb, [facility] [place] [facility] [address] [facility] [facility] [id number] [place] [address]- 7964 Feb, [facility] [place] [facility] [address] [facility] [facility] [id number] [place] [address]- 3015 Feb, [facility] [address] [id number], [place] [id number] Jan, [facility] [place] [facility] [address] [id number] [place] [address]- 1009 Jan, [facility] [address] [facility] [id number], [place] 3753924[address] Jan, [facility] [place] [facility] [address] [facility] [facility] [id number], [place] [address]- 6023 Jan, [facility] [address] [id number], [place] [id number] Jan, [facility] [place] [facility] [address] [id number] [place] [address]- 2483 Jan, [facility] [address] [id number] [place] [id number] Nov, [facility] [place] [facility] [address] [id number] [place] [address]- 4048 Nov, [facility] [address] [id number] [place] [id number] Oct, [facility] [place] [facility] [address] [facility] [facility] [id number], [place] [address]- 5646 Oct, [facility] [address] [id number] [place] [id number] Sep, [facility] [address] [facility] [facility] [id number], [place] [address]- 2166 Sep, [facility] [address] [id number], [place] [id number] Sep, [facility] [address] [facility] [address] [facility] [id number], [place] [address]- 9895 Sep, [facility] [address] [facility] [facility] [id number], [place] [address]- 6715 Sep, [facility] [place] [facility] [address] [facility] [facility] [id number], [place] [address]- 6096 Sep, [facility] [address]00565100[place], [place] [address]- 16[address] Aug, [facility] [address] [id number], [place] [address]- 3744 Aug, [facility] [address] [facility] [id number], [place] [address]43 Aug, [facility] [address] [id number], [place] [address]- 1797 Aug, [facility] [address] [id number], [place] [id number] May, [facility] [place] [facility] [address] [id number], [place] [address]- 2546 May, [facility] [address] [id number] [place] [id number] Apr, [facility] [address] [id number], [place] 12[address] Mar, [facility] [address] [id number], [place] [id number] Mar, [facility] [address] [id number], [place] [id number] Oct, [facility] [address] [facility] [id number], [place] [id number] Aug, [facility] [address] [id number], [place] [id number] Aug, [facility] [address] [id number], [place] [id number] Aug, [place] [id number] [id number] Jun, [place] [id number] [place] [address] 18263- 2546 Jun, [place] [id number] [id number] Nov, [place] [id number] [place] [address] 25589- 2546 Sep, [place] [id number] [place] [address] 47786- 0702 May, [place] [id number] [place] [address] 24671- 2545 May, IMMUNIZATIONS No Known Immunizations SOCIAL HISTORY Never Assessed REASON FOR VISIT culture results PLAN OF CARE VITAL SIGNS MEDICATIONS Unknown Medications RESULTS No Results PROCEDURES No Known procedures INSTRUCTIONS MEDICATIONS ADMINISTERED No Known Medications MEDICAL (GENERAL) HISTORY Type Description Date Medical History chlamydia Hospitalization History childbirth 2013
--- OUTSIDE RECORDS SUMMARY | 2018-06-29 18:34 | XMS REPORT ---
Author Author BRIAN BAIG Organization [facility] Address [address] [place] [address] Care Team Providers Care Earth Mover Name Role Phone BRIAN BAIG Unavailable PROBLEMS Type Condition ICD9-CM Code [id number] Code Onset Dates Condition Status SNOMED Code Problem History of delivery, currently O09.219 Active [id number] ALLERGIES No Information ENCOUNTERS Encounter Location Date Diagnosis [facility] [id number] [place] [address] [id number] Jun, [facility] [address] [address] Apr, [facility] [address] [address] Mar, Missed O02.1 [facility] [address] [address] Mar, care, subsequent in first trimester Z34.81 ; 8 weeks gestation of Z3A.08 and History of delivery, currently O09.219 [facility] [id number] [place] [address]- 8798 Mar, [facility] [address] [address] Feb, [facility] [address] [address] Feb, Encounter for test, result unknown Z32.00 [facility] [id number] [place] [address] -[address]32 Jan, [facility] [address] [address] Jan, [facility] [address] [id number] [address] Jan, Urinary frequency R35.0 and Pelvic pain R10.2 [facility] [id number] [place] [address] [id number]- 4992 13 May, 2017 General medical exam Z00.00 and Fatigue, unspecified type R53.83 [id number] [place] [address]- 8857 May, General medical exam Z00.00 and Fatigue, unspecified type R53.[address] [id number] Sep, Post-nasal drip R09.82 [id number] [place] [address] [id number] Jun, [address] [id number] Jun, Vaginal odor N89.8 ; High risk sexual behavior Z72.51 and Depo-Provera contraceptive status Z30.[address] [id number] Feb, Encounter for Depo-Provera contraception Z30.42 [id number] [place] [address]- 3991 December, [id number] [place] [address] [id number] December, [id number] [place] [address] [id number] Nov, [id number] [place] [address] [id number] Nov, High risk bisexual behavior Z72.53 and Trichomonas infection A59.9 [address] [address] Nov, Encounter for Depo-Provera contraception Z30.42 and Encounter for immunization Z23 [facility] [id number] [place] [address] -7132 07 Nov, 2015 Acute sinusitis J01.90 [id number] [place] [address] [id number] 03 Sep, 2015 Acute frontal sinusitis, recurrence not specified J01.[address] [place] [address] [id number] Aug, High risk sexual behavior Z72.51 and Trichomonas infection A59.9 [id number] [place] [address] [id number] Jul, [id number] [place] [address] [id number] Jun, [id number] [place] [address] [id number] May, Screening for STD sexually transmitted disease Z11.3 and Encounter for immunization Z23 [id number] [place] [address] [id number] May, [id number] [place] [address] [id number] Apr, [id number] [place] [address] [id number] Apr, Leukorrhea 623.5 [id number] [place] [address] [id number] Mar, Routine child health exam V20.2 ; Encounter for Depo-Provera contraception V25.49 ; Dietary counseling and surveillance V65.3 ; Exercise counseling V65.41 and GARDASIL (HPV) DX V04.[address] [place] [address] [id number] Feb, Insect bite 919.4 [id number] [place] [address] [id number] December, [facility] [id number] [place] [address] [id number] 1846 14 Nov, 2014 [facility] [address] [id number]- [address] Nov, [facility] [address] [id number] [place] [id number] Sep, [facility] [place] [facility] [address] [id number] [place] [address] Sep, [facility] [address] [id number] [place] [id number] Sep, [facility] [place] [facility] [address] [facility] [id number], [place] [address] Sep, [facility] [address] [id number] [place] [id number] Aug, [facility] [place] [facility] [address] [facility] [id number] [place] [address]- 2746 Aug, [facility] [address] [facility] [id number] [id number] Jul, [facility] [place] [facility] [address] [facility] [id number], [place] [address] 6[address] Jul, [facility] [place] [facility] [address] [facility] [id number][place] [address] Jul, [facility] [place] [facility] [address] [facility] [id number] [address] Jul, [facility] [place] [facility] [address] [facility] [id number] [address] Jul, [facility] [address] [facility] [id number][place] [id number] Jul, [facility] [place] [facility] [address] [facility] [id number], [place] [address]- 6[address] Jul, [facility] [place] [facility] [address] [id number] [place] [address]- 7585 Jul, [facility] [address] [facility] [id number] [place] [id number] Jul, [facility] [place] [facility] [address] [facility] [id number] [place] [address]- 2081 Jul, [facility] [place] [facility] [address] [facility] [id number], [place] [address] 0[address] Jul, [facility] [address] [facility] [id number] [place] [id number] Jul, [facility] [place] [facility] [address] [facility] [id number] [place] [address]- 9396 Jul, [facility] [address] [facility] [id number] [place] [id number] Jul, [facility] [address] [facility] [id number][place] [id number] Jul, [facility] [place] [facility] [address] [facility] [id number] [place] [address]- 94[address] Jul, [facility] [place] [facility] [address] [facility] [id number], [place] [address] 6[address] Jul, [facility] [address] [id number] [id number] Jul, [facility] [place] [facility] [address] [facility] [id number], [place] [address]- [address] Jul, [facility] [place] [facility] [address] [facility] [id number], [place] [address]- 4[address] Jul, [facility] [place] [facility] [address] [id number] [address] Jul, [facility] [address] [facility] [id number][place] [id number] Jul, [facility] [place] [facility] [address] [facility] [id number], [place] [address]- 6780 Jul, [facility] [place] [facility] [address] [facility] [id number], [place] [address]- 8039 Jul, [facility] [address] [facility] [id number], [place] [id number] Jul, [facility] [place] [facility] [address] [facility] [id number], [place] [address]- 0[address] Jul, [facility] [place] [facility] [address] [facility] [id number], [place] [address]- 6134 Jul, [facility] [place] [facility] [address] [id number] [place] [address]- 0943 Jul, [facility] [address] [id number] [place] [id number] Jun, [facility] [place] [facility] [address] [id number] [place] [address]- 3946 Jun, [facility] [address] [id number] [place] [id number] Jun, [facility] [place] [facility] [address] [id number] [place] [address]- 7327 Jun, [facility] [address] [id number] [place] [id number] Jun, [facility] [place] [facility] [address] [id number] [place] [address]- 8810 Jun, [facility] [place] [facility] [address] [id number] [place] [address]- 9311 May, [facility] [address] [id number][place] [id number] May, [facility] [address] [id number] [place] [id number] May, [facility] [place] [facility] [address] [id number][place] [address] May, [facility] [place] [facility] [address] [facility] [id number], [place] [address]- 4468 May, [facility] [place] [facility] [address] [id number], [place] [address]- 6085 May, [facility] [address] [id number] [place] [id number] May, [facility] [place] [facility] [address] [id number], [place] [address]- 3115 May, [facility] [place] [facility] [address] [facility] [id number], [place] [address]- 6568 May, [facility] [place] [facility] [address] [id number] [place] [address]- 7753 Apr, 2013 [facility] [place] [facility] [address] [id number] [place] [address]- 9259 Apr, [facility] [place] [facility] [address] [id number] [place] [address]- 5258 Apr, [facility] [place] [facility] [address] [id number] [place] [address]- 2799 Apr, [facility] [place] [facility] [address] [id number] [place] [address]- 0661 Apr, [facility] [place] [facility] [address] [id number] [place] [address]- 7288 Apr, [facility] [address] [facility] [id number][place] [id number] Apr, [facility] [place] [facility] [address] [facility] [id number] [place] [address]- 1648 Apr, [facility] [place] [facility] [address] [id number] [place] [address]- 2313 Apr, [facility] [address] [id number][place] [id number] Apr, [facility] [place] [facility] [address] [facility] [id number] [place] [address]- 8860 Apr, [facility] [place] [facility] [address] [id number], [place] [address]- 6393 Mar, [facility] [place] [facility] [address] [id number], [place] [address]- 1339 Mar, [facility] [address] [id number][place] [id number] Mar, [facility] [place] [facility] [address] [id number] [place] [address]- 8186 Mar, [facility] [place] [facility] [address] [id number] [place] [address]- 9155 Feb, [facility] [address] [id number] [place] [id number] Feb, [facility] [place] [facility] [address] [id number] [place] [address]- 5635 Feb, [facility] [place] [facility] [address] [facility] [id number] [place] [address]- 7031 Feb, [facility] [place] [facility] [address] [id number] [place] [address]- 9601 Feb, [facility] [address] [id number] [place] [id number] Feb, [facility] [address] [id number] [place] [id number] Feb, [facility] [place] [facility] [address] [facility] [id number] [place] [address]- 2048 Feb, [facility] [place] [facility] [address] [facility] [id number] [place] [address]- 1216 Feb, [facility] [address] [id number], [place] [id number] Jan, [facility] [place] [facility] [address] [id number] [place] [address]- 8694 Jan, [facility] [address] [facility] [id number], [place] [address] Jan, [facility] [place] [facility] [address] [facility] [id number], [place] [address]- 9054 Jan, [facility] [address] [id number], [place] [id number] Jan, [facility] [place] [facility] [address] [id number] [place] [address]- 8299 Jan, [facility] [address] [id number] [place] [id number] Nov, [facility] [place] [facility] [address] [id number] [place] [address]- 0110 Nov, [facility] [address] [id number] [place] [id number] Oct, [facility] [place] [facility] [address] [facility] [id number], [place] [address]- 4266 Oct, [facility] [address] [id number] [place] [id number] Sep, [facility] [address] [facility] [id number], [place] [address]- 0856 Sep, [facility] [address] [id number], [place] [id number] Sep, [facility] [address] [facility] [id number], [place] [address]- 5865 Sep, [facility] [address] [facility] [id number], [place] [address]- 5624 Sep, [facility] [place] [facility] [address] [facility] [id number], [place] [address]- 3996 Sep, [facility] [address], [place] [address]- 9384 Aug, [facility] [address] [id number], [place] [address]- 2966 Aug, [facility] [address] [facility] [id number], [place] [address] Aug, [facility] [address] [id number], [place] [address]- 2638 Aug, [facility] [address] [id number], [place] [id number] May, [facility] [place] [facility] [address] [id number], [place] [address]- 2546 May, [facility] [address] [id number] [place] [id number] Apr, [facility] [address] [id number], [place] [id number] Mar, [facility] [address] [id number], [place] [id number] Mar, [facility] [address] [id number], [place] [id number] Oct, [facility] [address] [facility] [id number], [place] [id number] Aug, [facility] [address] [id number], [place] [id number] Aug, [facility] [address] [id number], [place] [id number] Aug, [facility] [address] [id number], [place] [id number] Jun, [facility] [id number] [place] [address]90- 2546 Jun, [facility] [address] [id number] [id number] Nov, [place] [id number] [place] [address]37- 2546 Sep, [place] [id number] [place] [address] 13666- 2546 May, [place] [id number] [place] [address] 92714- 2546 May, IMMUNIZATIONS No Known Immunizations SOCIAL HISTORY Never Assessed REASON FOR VISIT lab results PLAN OF CARE VITAL SIGNS MEDICATIONS Medication Instructions Dosage Frequency Start Date End Date Duration Status Fluconazole 150 MG Orally now then in 72 hours 1 tablet Jan, Feb, 3 days Active RESULTS No Results PROCEDURES No Known procedures INSTRUCTIONS MEDICATIONS ADMINISTERED No Known Medications MEDICAL (GENERAL) HISTORY Type Description Date Medical History chlamydia Hospitalization History childbirth 2013
--- OUTSIDE RECORDS SUMMARY | 2018-06-29 18:34 | XMS REPORT ---
Author Author TOMAS MCKENZIE Organization [facility] Address [address] [place] [address] Care Team Providers Care Billing Specialist Name Role Phone TOMAS MCKENZIE Unavailable PROBLEMS Type Condition ICD9-CM Code NHY29-HK Code Onset Dates Condition Status SNOMED Code Problem History of delivery, currently O09.219 Active [id number] ALLERGIES No Information ENCOUNTERS Encounter Location Date Diagnosis [facility] [address] [id number] Jun, [facility] [address] [address] Mar, Missed O02.1 [facility] [address] [address] Mar, care, subsequent in first trimester Z34.81 ; 8 weeks gestation of Z3A.08 and History of delivery, currently O09.219 [facility] [id number] [place] [address]- [address]7 Mar, [facility] [id number] [place] [address]- 3495 Feb, [facility] [address] [address] Feb, Encounter for test, result unknown Z32.00 [facility] [address] [address] Jan, [facility] [address] [address] Jan, [facility] [address] [address] Jan, Urinary frequency R35.0 and Pelvic pain R10.2 [facility] [id number] [place] [address]757- 6649 13 May, 2017 General medical exam Z00.00 and Fatigue, unspecified type R53.83 [facility] [id number] [place] [address] 95841- 3841 10 May, 2017 General medical exam Z00.00 and Fatigue, unspecified type R53.83 [facility] [id number] [place] [address] [id number] Sep, Post-nasal drip R09.[address] [id number] Jun, [id number] [place] [address] [id number] Jun, Vaginal odor N89.8 ; High risk sexual behavior Z72.51 and Depo-Provera contraceptive status Z30.40 [place] [id number] [place] [address] [id number] Feb, Encounter for Depo-Provera contraception Z30.42 [facility] [id number] [place] [address]88- 6793 December, [address] [place] [id number] [place] [address] [id number] December, [place] [place] [id number] [place] [address] [id number] Nov, [address] [place] [id number] [place] [address] [id number] Nov, High risk bisexual behavior Z72.53 and Trichomonas infection A59.9 [facility] [id number] [place] [address] 02997- 7971 Nov, Encounter for Depo-Provera contraception Z30.42 and Encounter for immunization Z23 [facility] [id number] [place] [address] -[address]57 Nov, Acute sinusitis J01.90 [address] [id number] Sep, Acute frontal sinusitis, recurrence not specified J01.10 [id number] [place] [address] [id number] Aug, High risk sexual behavior Z72.51 and Trichomonas infection A59.9 [place] [place] [id number] [place] [address] [id number] Jul, [place] [place] [id number] [place] [address] [id number] Jun, [address] [id number] [place] [address] [phone] May, Screening for STD sexually transmitted disease Z11.3 and Encounter for immunization Z23 [address] [place] [id number] [place] [address] [id number] May, [facility] [address] [place] [address] [id number] [place] [address] [id number] Apr, [address] [id number] [place] [address] [id number] Apr, Leukorrhea 623.5 [address] [id number] [place] [address] [id number] Mar, Routine child health exam V20.2 ; Encounter for Depo-Provera contraception V25.49 ; Dietary counseling and surveillance V65.3 ; Exercise counseling V65.41 and GARDASIL (HPV) DX V04.[address] [place] [address] [id number] Feb, Insect bite 919.[address] [place] [address] [id number] December, [facility] [address] [address]- [address] Nov, [facility] [id number] [place] [address] [id number] [phone] Nov, [place] [id number] [place] [address] [id number] Sep, [facility] [address] [id number] [place] [address]- [address] Sep, [facility] [address] [facility] [id number] [place] [id number] Sep, [facility] [address] [id number] [place] [address]- 7486 Sep, [facility] [address] [facility] [id number] [id number] Aug, [facility] [address] [id number] [place] [address]- 7582 Aug, [facility] [address] [facility] [id number] [place] [id number] Jul, [facility] [place] [facility] [address] [facility] [id number] [place] [address]- 1086 Jul, [facility] [place] [facility] [address] [facility] [id number] [place] 9416 Jul, [facility] [place] [facility] [address] [facility] [id number] [place] 9[address] Jul, [facility] [place] [facility] [address] [id number] [place] 5616 Jul, [facility] [address] [facility] [id number][place] [id number] Jul, [facility] [place] [facility] [address] [facility] [id number] [place] [address] 2546 Jul, [facility] [place] [facility] [address] [id number] [place] [address] 2546 Jul, [facility] [address] [facility] [id number] [place] [id number] Jul, [facility] [place] [facility] [address] [id number] [place] [address]- 1706 Jul, [facility] [place] [facility] [address] [facility] [id number][place] [address]- 3270 Jul, [facility] [address] [id number] [place] [id number] Jul, [facility] [place] [facility] [address] [id number] [place] [address]- 7265 Jul, [facility] [address] [id number] [place] [id number] Jul, [facility] [address] [facility] [id number] [place] [id number] Jul, [facility] [place] [facility] [address] [id number], [place] [address]- 9834 Jul, [facility] [place] [facility] [address] [id number][place] [address]- 5188 Jul, [facility] [address] [facility] [id number] [place] [id number] Jul, [facility] [place] [facility] [address] [facility] [id number], [place] [address]- 4195 Jul, [facility] [place] [facility] [address] [facility] [id number][place] [address]- 5842 Jul, [facility] [place] [facility] [address] [facility] [id number][place] [address]- 9717 Jul, [facility] [address] [facility] [id number][place] [id number] Jul, [facility] [place] [facility] [address] [facility] [id number][place] [address]- 7281 Jul, [facility] [place] [facility] [address] [facility] [id number], [place] [address]- 5355 Jul, [facility] [address] [facility] [id number] [place] [id number] Jul, [facility] [place] [facility] [address] [id number][place]- 4062 Jul, [facility] [place] [facility] [address] [facility] [id number][place] [address]- 6545 Jul, [facility] [place] [facility] [address] [facility] [id number], [place] [address]- 2546 Jul, [facility] [address] [id number] [place] [id number] Jun, [facility] [place] [facility] [address] [id number] [place] [address]- 8786 Jun, [facility] [address] [id number] [place] [id number] Jun, [facility] [place] [facility] [address] [id number] [place] [address]- 1016 Jun, [facility] [address] [id number] [place] [id number] Jun, [facility] [place] [facility] [address] [id number] [place] [address]- 2646 Jun, [facility] [place] [facility] [address] [facility] [id number] [place] [address]- 0563 May, [facility] [address] [id number][place] [id number] May, [facility] [address] [id number] [place] [id number] May, [facility] [place] [facility] [address] [id number][place] [address]- 7840 May, [facility] [place] [facility] [address] [facility] [id number][place] [address]- 8662 May, [facility] [place] [facility] [address] [facility] [id number][place] [address]- 7604 May, [facility] [address] [facility] [id number][place] [id number] May, [facility] [place] [facility] [address] [id number][place] [address]- 2009 May, [facility] [place] [facility] [address] [facility] [id number], [place] [address]- 2491 May, [facility] [place] [facility] [address] [facility] [id number], [place] [address]- 5445 Apr, [facility] [place] [facility] [address] [id number] [place] [address]- 3064 23 Apr, 2014 [facility] [place] [facility] [address] [id number] [place] [address]- 7820 Apr, [facility] [place] [facility] [address] [id number] [place] [address]- 7846 Apr, [facility] [place] [facility] [address] [id number] [place] [address]- 3237 Apr, [facility] [place] [facility] [address] [id number] [place] [address]- 6862 Apr, [facility] [address] [id number] [place] [id number] Apr, [facility] [place] [facility] [address] [id number] [place] [address]- 0794 Apr, [facility] [place] [facility] [address] [id number] [place] [address]- 6936 Apr, [facility] [address] [facility] [id number][place] [id number] Apr, [facility] [place] [facility] [address] [id number] [place] [address]- 5153 Apr, [facility] [place] [facility] [address] [facility] [id number] [place] [address]- 9824 Mar, [facility] [place] [facility] [address] [id number] [place] [address]- 2987 Mar, [facility] [address] [facility] [id number][place] [id number] Mar, [facility] [place] [facility] [address] [id number] [place] [address]- 2255 Mar, [facility] [place] [facility] [address] [facility] [id number] [place] [address]- 4911 Feb, [facility] [address] [id number] [place] [id number] Feb, [facility] [place] [facility] [address] [facility] [id number][place] [address]- 4242 Feb, [facility] [place] [facility] [address] [id number], [place] [address]- 8744 Feb, [facility] [place] [facility] [address] [facility] [id number], [place] [address]- 3079 Feb, [facility] [address] [id number] [place] [id number] Feb, [facility] [address] [id number][place] [id number] Feb, [facility] [place] [facility] [address] [facility] [id number] [place] [address]- 4805 Feb, [facility] [place] [facility] [address] [facility] [id number], [place] [address]- 7403 Feb, [facility] [address] [facility] [id number] [place] [id number] Jan, [facility] [place] [facility] [address] [facility] [id number], [place] [address]- 3391 Jan, [facility] [address] [id number] [place] [id number] Jan, [facility] [place] [facility] [address] [facility] [id number][place] [address]- 1065 Jan, [facility] [address] [id number] [place] [id number] Jan, [facility] [place] [facility] [address] [facility] [id number], [place] [address]- 5504 Jan, [facility] [address] [id number] [place] [id number] Nov, [facility] [place] [facility] [address] [facility] [id number], [place] [address]- 6035 Nov, [facility] [address] [id number] [place] [id number] Oct, [facility] [place] [facility] [address] [facility] [id number][place] [address]- 2588 Oct, [facility] [address] [id number] [place] [id number] Sep, [facility] [address] [facility] [id number], [place] [address]- 5796 Sep, [facility] [address] [id number] [place] [id number] Sep, [facility] [address] [facility] [id number], [place] [address]- 1008 Sep, [facility] [address] [facility] [id number], [place] [address]- 4658 Sep, [facility] [address] [facility] [id number][place] [address]- 5243 Sep, [facility] [address] [id number] [place] [address]- 1818 Aug, [facility] [address]00565100[place], [place] [address]- 4686 Aug, [facility] [address] [id number], [place] [id number] Aug, [facility] [address]00565100[place], [place] [address]- 6149 Aug, [facility] [address] [id number], [place] [id number] May, [facility] [address] [facility] [id number], [place] [address]- 2546 May, [facility] [address] [id number] [place] [id number] Apr, [facility] [address] [id number] [place] [id number] Mar, [facility] [address] [id number] [place] [id number] Mar, [facility] [address] [id number] [place] [id number] Oct, [facility] [address] [id number] [place] [id number] Aug, [facility] [address] [facility] [id number] [place] [id number] Aug, [facility] [address] [id number] [id number] Aug, [facility] [address] [id number], [place] [id number] Jun, [facility] [address]65100[place] [address]- 2546 Jun, [facility] [address] [id number][place] [id number] Nov, [facility] [address]00565100[place], [place] [address]- 2546 Sep, [facility] [id number] [place] [address]- 2546 May, [facility] [address]100[place] [address]- 2546 May, IMMUNIZATIONS No Known Immunizations SOCIAL HISTORY Never Assessed REASON FOR VISIT test (walk-in) PLAN OF CARE VITAL SIGNS MEDICATIONS Unknown Medications RESULTS Name Result Date Reference Range TEST, URINE (IN HOUSE) 2018-02-17 RESULTS Positive Lot # [id number] Control + Exp date 08/2019 PROCEDURES Procedure Date Ordered Result Body Site URINE TEST February 17, 2018 INSTRUCTIONS MEDICATIONS ADMINISTERED No Known Medications MEDICAL (GENERAL) HISTORY Type Description Date Medical History chlamydia Hospitalization History childbirth 2013
--- OUTSIDE RECORDS SUMMARY | 2018-06-29 18:35 | XMS REPORT ---
Author Author BRIAN BIAG Organization [facility] Address [address] [place] [address] Care Team Providers Care Feather Baler Name Role Phone BRIAN BAIG Unavailable PROBLEMS Type Condition ICD9-CM Code BLY44-RJ Code Onset Dates Condition Status SNOMED Code Problem History of delivery, currently O09.219 Active [id number] ALLERGIES No Known Allergies ENCOUNTERS Encounter Location Date Diagnosis [facility] [address] [id number] Jun, [facility] [address] [address] Apr, [facility] [address] [address] Mar, Missed O02.1 [facility] [address] [address] Mar, care, subsequent in first trimester Z34.81 ; 8 weeks gestation of Z3A.08 and History of delivery, currently O09.219 [facility] [address] [address] Mar, [facility] [address] [address] Feb, [facility] [address] [address] Feb, Encounter for test, result unknown Z32.00 [facility] [address] [address] Jan, [facility] [address] [address] Jan, [facility] [id number] [place] [address] Jan, Urinary frequency R35.0 and Pelvic pain R10.2 [facility] [id number] [place] [address] [id number] 3437 13 May, 2017 General medical exam Z00.00 and Fatigue, unspecified type R53.83 [place] [id number] [place] [address] May, General medical exam Z00.00 and Fatigue, unspecified type R53.[address] [id number] Sep, Post-nasal drip R09.82 [place] [id number] [place] [id number] Jun, [address] [id number] Jun, Vaginal odor N89.8 ; High risk sexual behavior Z72.51 and Depo-Provera contraceptive status Z30.[address] [id number] Feb, Encounter for Depo-Provera contraception Z30.42 [place] [id number] [place] [address]- 89[address] December, [address] [id number] December, [place] [id number] [place] [address] [id number] Nov, [address] [id number] Nov, High risk bisexual behavior Z72.53 and Trichomonas infection A59.9 [place] [id number] [place] [address]82- 1097 Nov, Encounter for Depo-Provera contraception Z30.42 and Encounter for immunization Z23 [facility] [id number] [place] [address] 07 Nov, 2015 Acute sinusitis J01.90 [place] [id number] [place] [address] [id number] Sep, 2015 Acute frontal sinusitis, recurrence not specified J01.[address] [place] [address] [id number] Aug, High risk sexual behavior Z72.51 and Trichomonas infection A59.9 [place] [id number] [place] [address] [id number] Jul, [place] [id number] [place] [address] [id number] Jun, [place] [id number] [place] [address] [id number] May, Screening for STD sexually transmitted disease Z11.3 and Encounter for immunization Z23 [place] [id number] [place] [address] [id number] May, [place] [id number] [place] [address] [id number] Apr, [place] [id number] [place] [address] [id number] Apr, Leukorrhea 623.5 [place] [id number] [place] [address] [id number] Mar, Routine child health exam V20.2 ; Encounter for Depo-Provera contraception V25.49 ; Dietary counseling and surveillance V65.3 ; Exercise counseling V65.41 and GARDASIL (HPV) DX V04.[address] [place] [address] [id number] Feb, Insect bite 919.4 [place] [id number] [place] [address] [id number] December, [facility] [address] [address] 14 Nov, 2014 [facility] [address] [address] Nov, [facility] [address] [id number] [place] [id number] Sep, [facility] [address] [facility] [id number], [place] [address] Sep, [facility] [address] [id number] [place] [id number] Sep, [facility] [place] [facility] [address] [facility] [id number], [place] [address]- [address] Sep, [facility] [address] [facility] [id number] [place] [id number] Aug, [facility] [place] [facility] [address] [facility] [id number] [place] [address]- 2596 Aug, [facility] [address] [facility] [id number] [place] [id number] Jul, [facility] [place] [facility] [address] [facility] [id number][place] [address] Jul, [facility] [place] [facility] [address] [facility] [id number][place]74[place]- 4[address] Jul, [facility] [place] [facility] [address] [facility] [id number][place]89[place]- 68[address] Jul, [facility] [place] [facility] [address] [facility] [id number][place] 1227[place] [address] Jul, [facility] [address] [facility] [id number] [place] [id number] Jul, [facility] [place] [facility] [address] [facility] [id number], [place] [address]- 54[address] Jul, [facility] [place] [facility] [address] [facility] [id number] [place] [address]- 6948 Jul, [facility] [address] [facility] [id number] [place] [id number] Jul, [facility] [place] [facility] [address] [facility] [id number], [place] [address]- 1818 Jul, [facility] [place] [facility] [address] [facility] [id number], [place] [address]- 4656 Jul, [facility] [address] [facility] [id number] [place] [id number] Jul, [facility] [place] [facility] [address] [facility] [id number], [place] [address]- 6616 Jul, [facility] [address] [facility] [id number] [place] [id number] Jul, [facility] [address] [facility] [id number] [place] [id number] Jul, [facility] [place] [facility] [address] [facility] [id number], [place] [address]- 5146 Jul, [facility] [place] [facility] [address] [id number], [place] [address]- 16[address] Jul, [facility] [address] [id number] [place] [id number] Jul, [facility] [place] [facility] [address] [id number], [place] [address]- 6925 Jul, [facility] [place] [facility] [address] [id number], [place] [address]- 234[address] Jul, [facility] [place] [facility] [address] [id number] [address]34 Jul, [facility] [address] [id number] [place] [id number] Jul, [facility] [place] [facility] [address] [facility] [id number], [place] [address]- 8870 Jul, [facility] [place] [facility] [address] [facility] [id number], [place] [address]- 9985 Jul, [facility] [address] [facility] [id number] [place] [id number] Jul, [facility] [place] [facility] [address] [facility] [id number], [place] [address]- 7499 Jul, [facility] [place] [facility] [address], [place] [address]- [address] Jul, [facility] [place] [facility] [address] [id number] [place] [address]- 4717 Jul, [facility] [address] [id number] [place] [id number] Jun, [facility] [address] [id number] [place] [address]- 8996 Jun, [facility] [address] [id number] [place] [id number] Jun, [facility] [place] [facility] [address] [id number] [place] [address]- 6769 Jun, [facility] [address] [id number] [place] [id number] Jun, [facility] [place] [facility] [address] [facility] [id number], [place] [address]- 9192 Jun, [facility] [place] [facility] [address] [facility] [id number], [place] [address]- 8453 May, [facility] [address] [id number] [place] [id number] May, [facility] [address] [facility] [id number] [place] [id number] May, [facility] [place] [facility] [address] [facility] [id number], [place]- [address]757 May, [facility] [place] [facility] [address] [facility] [id number], [place] [address]- 3627 May, [facility] [place] [facility] [address] [id number], [place] [address]- 4966 May, [facility] [address] [id number] [place] [id number] May, [facility] [place] [facility] [address] [facility] [id number], [place] [address]- 0664 May, [facility] [place] [facility] [address] [facility] [id number], [place] [address]- 9573 May, [facility] [place] [facility] [address] [id number] [place] [address]- 4347 Apr, 2013 [facility] [place] [facility] [address] [id number] [place] [address]- 2040 Apr, [facility] [place] [facility] [address] [id number] [place] [address]- 5503 Apr, [facility] [place] [facility] [address] [id number] [place] [address]- 9729 Apr, [facility] [place] [facility] [address] [id number] [place] [address]- 8238 Apr, [facility] [place] [facility] [address] [id number] [place] [address]- 5361 Apr, [facility] [address] [facility] [id number] [place] [id number] Apr, [facility] [place] [facility] [address] [facility] [id number] [place] [address]- 7917 Apr, [facility] [place] [facility] [address] [id number] [place] [address]- 6596 Apr, [facility] [address] [id number] [place] [id number] Apr, [facility] [place] [facility] [address] [facility] [id number] [place] [address]- 7362 Apr, [facility] [place] [facility] [address] [facility] [id number], [place] [address]- 3272 Mar, [facility] [place] [facility] [address] [id number], [place] [address]- 3140 Mar, [facility] [address] [id number] [place] [address] Mar, [facility] [place] [facility] [address] [id number] [place] [address]- 2841 Mar, [facility] [place] [facility] [address] [id number] [place] [address]- 3459 Feb, [facility] [address] [id number] [place] [id number] Feb, [facility] [place] [facility] [address] [id number] [place] [address]- 2060 Feb, [facility] [place] [facility] [address] [facility] [id number] [place] [address]- 8968 Feb, [facility] [place] [facility] [address] [facility] [id number] [place] [address]- 1789 Feb, [facility] [address] [id number] [place] [id number] Feb, [facility] [address] [id number] [place] [id number] Feb, [facility] [place] [facility] [address] [facility] [id number] [place] [address]- 4166 Feb, [facility] [place] [facility] [address] [facility] [id number] [place] [address]- 2879 Feb, [facility] [address] [id number] [place] [id number] Jan, [facility] [place] [facility] [address] [facility] [id number] [place] [address]- 9194 Jan, [facility] [address] [facility] [id number] [place] [id number] Jan, [facility] [place] [facility] [address] [facility] [id number], [place] [address]- 6[address] Jan, [facility] [address] [id number] [place] [address] Jan, [facility] [place] [facility] [address] [id number] [place] [address]- 8643 Jan, [facility] [address] [id number] [place] [id number] Nov, [facility] [place] [facility] [address] [facility] [id number] [place] [address]- 9262 Nov, [facility] [address] [id number] [place] [id number] Oct, [facility] [place] [facility] [address] [facility] [id number], [place] [address]- 6016 Oct, [facility] [address] [id number] [place] [id number] Sep, [facility] [address] [facility] [id number], [place] [address]- 0416 Sep, [facility] [address] [id number] [place]ENTER[place] [id number] Sep, [facility] [address] [facility] [id number], [place] [address]- 7506 Sep, [facility] [address] [facility] [id number], [place] [address]- 4939 Sep, [facility] [address] [facility] [id number], [place] [address]- 4406 Sep, [facility] [address]005[address], [place] [address]- [address] Aug, [facility] [address] [id number], [place] [address]- 0274 Aug, [facility] [address] [facility] [id number] [place] [id number] Aug, [facility] [address] [id number], [place] [address]- 3036 Aug, [facility] [address] [id number] [place]ENTER[place] [id number] May, [facility] [place] [facility] [address] [facility] [id number], [place] [address]- 2546 May, [facility] [address] [id number] [place] [id number] Apr, [facility] [address] [id number] [place] [id number] Mar, [facility] [address] [id number] [place] [id number] Mar, [facility] [address] [id number] [place] [id number] Oct, [facility] [address] [facility] [id number] [place] [id number] Aug, [facility] [address] [facility] [id number] [place] [id number] Aug, [facility] [address] [facility] [id number] [place] [id number] Aug, [facility] [address] [id number] [place] [id number] Jun, [facility] [address] [id number], [place] [address]- 2546 Jun, [facility] [address] [facility] [id number] [place] [id number] Nov, [facility] [id number] [place] [address]- 2546 Sep, [facility] [id number] [place] [address]- 2546 May, [facility] [address]65100[place], [place] [address]- 2546 May, IMMUNIZATIONS No Known Immunizations SOCIAL HISTORY Never Assessed REASON FOR VISIT Urinary frequeny x2 days JStrasserRN PLAN OF CARE Activity Details Follow Up prn Reason:if symptoms worsen VITAL SIGNS Height 67 in 2018-01-23 Weight 200.0 lbs 2018-01-23 Temperature 97.7 degrees Fahrenheit 2018-01-23 Heart Rate 80 bpm 2018-01-23 Respiratory Rate 20 2018-01-23 BMI 31.32 kg/m2 2018-01-23 Blood pressure systolic 104 mmHg 2018-01-23 Blood pressure diastolic 70 mmHg 2018-01-23 MEDICATIONS Unknown Medications RESULTS No Results PROCEDURES Procedure Date Ordered Result Body Site URINALYSIS, AUTO, W/O SCOPE January 23, 2018 URINE TEST January 23, 2018 CULTURE, BACTERIA, OTHER January 23, 2018 Bacterial Vaginosis In House January 23, 2018 No Charge January 23, 2018 TRICHOMONAS ASSAY W/OPTIC January 23, 2018 INSTRUCTIONS MEDICATIONS ADMINISTERED No Known Medications MEDICAL (GENERAL) HISTORY Type Description Date Medical History chlamydia Hospitalization History childbirth 2013
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
--- NOTE | 2018-06-29 18:42 | ED Back Pain ---
General Chief Complaint: Back Problems Stated Complaint: PAIN IN LOWER BACK Source of Information: Patient Exam Limitations: No Limitations History of Present Illness Date Seen by Provider: Jun 29, 2018 Time Seen by Provider: 18:40 Initial Comments To ER per private vehicle with reports of pain in bilateral flanks that she reports as "kidney pain". This began yesterday after straining hard to have a bowel movement. She was unable to have a bowel movement. No nausea no vomiting. No fevers no chills. No urinary frequency or burning on urination. She does have some intermittent abdominal pains in various locations. Location: Paraspinous Muscles Timing/Duration: 1-2 Days Severity: Moderate Method of Injury: Unknown Modifying Factors: Worse With Movement Associated Symptoms: No fever; lower back pain Allergies and Home Medications Allergies Coded Allergies: No Known Drug Allergies (Unverified , 11/29/08) Home Medications Ondansetron 4 Mg Tab.rapdis, 4 MG PO Q6H PRN for NAUSEA/VOMITING Prescribed by: HEATHER JACKSON on 04/14/16 1001 Patient Home Medication List Home Medication List Reviewed: Yes Review of Systems Constitutional: see HPI EENTM: see HPI Respiratory: no symptoms reported Cardiovascular: no symptoms reported Genitourinary: no symptoms reported Musculoskeletal: see HPI, back pain Skin: no symptoms reported Psychiatric/Neurological: No Symptoms Reported Past Odiuuza-Unhwdo-Vridnp Hx Patient Social History Type Used: Cigarettes Recent Foreign Travel: No Contact w/Someone Who Travel: No Recent Hopitalizations: No Immunizations Up To Date Tetanus Booster (TDap): Less than 5yrs Date of Influenza Vaccine: May 05, 2014 Past Medical History Surgeries: No Respiratory: No Cardiac: No Neurological: No Reproductive Disorders: No Female Reproductive Disorders: Denies HIV/AIDS: No Gastrointestinal: No Musculoskeletal: No Endocrine: No HEENT: No Cancer: No Psychosocial: No Integumentary: No Blood Disorders: No Adverse Reaction/Blood Tranf: No Family Medical History Patient reports no known family medical history. No Pertinent Family Hx Physical Exam Vital Signs Vital Signs - First Documented 06/29/18 18:36 Temp 96.4 Pulse 67 Resp 20 B/P (MAP) 125/85 (98) Pulse Ox 98 O2 Delivery Room Air Capillary Refill : Height, Weight, BMI Height: 5'7.00" Weight: 198lbs. oz. 89.400305iw; 21.09 BMI Method:Stated General Appearance: No Apparent Distress, WD/WN HEENT: PERRL/EOMI, TMs Normal Neck: Full Range of Motion, Normal Inspection Cardiovascular: Regular Rate, Rhythm, Normal Peripheral Pulses Respiratory: Normal Breath Sounds, No Accessory Muscle Use, No Respiratory Distress Gastrointestinal: Normal Bowel Sounds, Non Tender, Soft Extremity: Normal Capillary Refill, Normal Inspection Neurologic/Psychiatric: Alert, Oriented x3, No Motor/Sensory Deficits Skin: Normal Color, Warm/Dry Progress/Results/Core Measures Results/Orders Lab Results Laboratory Tests Test 06/29/18 19:00 06/29/18 19:10 Range/Units Urine Color YELLOW Urine Clarity SLIGHTLY CLOUDY Urine pH 6 5-9 Urine Specific [place] 1.020 1.016-1.022 Urine Protein NEGATIVE NEGATIVE Urine Glucose (UA) NEGATIVE NEGATIVE Urine Ketones 1+ H NEGATIVE Urine Nitrite NEGATIVE NEGATIVE Urine Bilirubin NEGATIVE NEGATIVE Urine Urobilinogen 4 H NORMAL MG/DL Urine Leukocyte Esterase 1+ H NEGATIVE Urine RBC (Auto) NEGATIVE NEGATIVE Urine RBC NONE /HPF Urine WBC 2-5 /HPF Urine Squamous Epithelial Cells 25-50 H /HPF Urine Renal Epithelial Cells NONE /HPF Urine Crystals NONE /LPF Urine Bacteria MODERATE H /HPF Urine Casts NONE /LPF Urine Mucus LARGE H /LPF Urine Yeast FEW H /HPF Urine Culture Indicated NO White Blood Count 9.1 4.3-11.0 10^3/uL Red Blood Count 4.40 4.35-5.85 10^6/uL Hemoglobin 13.1 11.5-16.0 G/DL Hematocrit 40 35-52 % Mean Corpuscular Volume 91 80-99 FL Mean Corpuscular Hemoglobin 30 25-34 PG Mean Corpuscular Hemoglobin Concent 33 32-36 G/DL Red Cell Distribution Width 12.1 10.0-14.5 % Platelet Count 201 130-400 10^3/uL Mean Platelet Volume 9.8 7.4-10.4 FL Neutrophils (%) (Auto) 66 42-75 % Lymphocytes (%) (Auto) 27 12-44 % Monocytes (%) (Auto) 6 0-12 % Eosinophils (%) (Auto) 1 0-10 % Basophils (%) (Auto) 0 0-10 % Neutrophils # (Auto) 6.1 1.8-7.8 X 10^3 Lymphocytes # (Auto) 2.4 1.0-4.0 X 10^3 Monocytes # (Auto) 0.6 0.0-1.0 X 10^3 Eosinophils # (Auto) 0.1 0.0-0.3 10^3/uL Basophils # (Auto) 0.0 0.0-0.1 10^3/uL Sodium Level 139 135-145 MMOL/L Potassium Level 3.6 3.6-5.0 MMOL/L Chloride Level 105 98-107 MMOL/L Carbon Dioxide Level 22 21-32 MMOL/L Anion Gap 12 5-14 MMOL/L Blood Urea Nitrogen 11 7-18 MG/DL Creatinine 0.75 0.60-1.30 MG/DL Estimat Glomerular Filtration Rate > 60 BUN/Creatinine Ratio 15 Glucose Level 92 70-105 MG/DL Calcium Level 9.1 8.5-10.1 MG/DL Corrected Calcium 8.7 8.5-10.1 MG/DL Total Bilirubin 0.3 0.1-1.0 MG/DL Aspartate Amino Transf (AST/SGOT) 13 5-34 U/L Alanine Aminotransferase (ALT/SGPT) 15 0-55 U/L Alkaline Phosphatase 67 40-136 U/L Total Protein 7.0 6.4-8.2 GM/DL Albumin 4.5 3.2-4.5 GM/DL My Orders Orders - TYLER SPANN APRN Ua Culture If Indicated (06/29/18 18:35) Urine Bedside (06/29/18 18:35) Cbc With Automated Diff (06/29/18 18:39) Comprehensive Metabolic Panel (06/29/18 18:39) Iv Heplock-Insert (Order) (06/29/18 18:39) Vital Signs/I&O 06/29/18 18:36 Temp 96.4 Pulse 67 Resp 20 B/P (MAP) 125/85 (98) Pulse Ox 98 O2 Delivery Room Air Departure Communication (Admissions) Due to a family emergency patient signed herself out AGAINST MEDICAL ADVICE Impression Primary Impression: Flank pain Disposition: AGAINST MEDICAL ADVICE Condition: Against Medical Advice Departure-Patient Inst. Decision time for Depature: 19:45 Referrals: NO,LOCAL PHYSICIAN (PCP/Family) Primary Care Physician Patient Instructions: Low Back Pain (DC) Add. Discharge Instructions: 1. Return to ER for any concerns 2. Follow-up with your doctor next week 3. All discharge instructions reviewed with patient and/or family. Voiced understanding. TYLER SPANN MUD GRINDER Jun 29, 2018 18:42
[2018-06-29 19:16] LABS: BASOPHILS % (AUTO) 0 % (0-10); EOSINOPHILS # (AUTO) 0.1 10^3/uL (0.0-0.3); EOSINOPHILS % (AUTO) 1 % (0-10); HEMATOCRIT 40 % (35-52); HEMOGLOBIN 13.1 G/DL (11.5-16.0); LYMPHOCYTES # (AUTO) 2.4 X 10^3 (1.0-4.0); LYMPHOCYTES % (AUTO) 27 % (12-44); MEAN CORPUSCULAR HEMOGLOBIN 30 PG (25-34); MEAN CORPUSCULAR HGB CONC 33 G/DL (32-36); MEAN CORPUSCULAR VOLUME 91 FL (80-99); MEAN PLATELET VOLUME 9.8 FL (7.4-10.4); MONOCYTES # (AUTO) 0.6 X 10^3 (0.0-1.0); MONOCYTES % (AUTO) 6 % (0-12); NEUTROPHILS # (AUTO) 6.1 X 10^3 (1.8-7.8); NEUTROPHILS % (AUTO) 66 % (42-75); PLATELET COUNT 201 10^3/uL (130-400); RED CELL DISTRIBUTION WIDTH 12.1 % (10.0-14.5); WHITE BLOOD COUNT 9.1 10^3/uL (4.3-11.0)
[2018-06-29 19:19] LABS: BILIRUBIN,URINE NEGATIVE (NEGATIVE); CLARITY,URINE SLIGHTLY CLOUDY; COLOR,URINE YELLOW; GLUCOSE, URINE (UA) NEGATIVE (NEGATIVE); KETONES,URINE 1+ (NEGATIVE); LEUKOCYTE ESTERASE ,URINE 1+ (NEGATIVE); NITRITE,URINE NEGATIVE (NEGATIVE); PH,URINE 6 (5-9); PROTEIN,URINE NEGATIVE (NEGATIVE); UROBILINOGEN,URINE 4 MG/DL (NORMAL)
[2018-06-29 19:30] LABS: BACTERIA,URINE MODERATE /HPF; SQUAMOUS EPITHELIAL CELL,UR 25-50 /HPF; YEAST,URINE FEW /HPF
[2018-06-29 19:35] LABS: ALANINE AMINOTRANSFERASE 15 U/L (0-55); ALBUMIN 4.5 GM/DL (3.2-4.5); ALKALINE PHOSPHATASE 67 U/L (40-136); BILIRUBIN,TOTAL 0.3 MG/DL (0.1-1.0); BUN/CREATININE RATIO 15; CALCIUM 9.1 MG/DL (8.5-10.1); CARBON DIOXIDE 22 MMOL/L (21-32); CHLORIDE 105 MMOL/L (98-107); CREATININE SERUM 0.75 MG/DL (0.60-1.30); GFR ESTIMATED > 60; GLUCOSE 92 MG/DL (70-105); POTASSIUM 3.6 MMOL/L (3.6-5.0); SODIUM 139 MMOL/L (135-145)
[2018-06-29 19:49] VITALS: BP 125/85
== END 2018-06-29 19:49 | disposition left against medical advice (07) ==
LOC: EDUNIT# 18:27 → ER 18:28
DX: R10.30 Lower abdominal pain, unspecified (principal)
CPT/HCPCS: 36415; 80053; 81000; 84703; 85025; 99282

== ENCOUNTER → 2019-01-19 | Outpatient (CLI) | payer MEDICAID ==
--- NOTE | 2019-01-19 16:50 | Diagnostic Imaging Report ---
INDICATION: patient, survey. TECHNIQUE: Multiple real-time grayscale images were obtained over the gravid uterus. COMPARISON: None during this . FINDINGS: A single live intrauterine fetus is seen measuring 19 weeks 1 day in size by composite measurements with sonographic EDC of 06/14/2019. The fetus is in variable presentation. Amniotic fluid is qualitatively normal. The placenta is grade 1 and anterior with placental tip about 2.2 cm above the cervical os. Cervical length is 4.0 cm. heart rate is 158 beats per minute. survey shows normal-appearing kidneys, bladder, and stomach as well as intracranial ventricles. Three-vessel cord and cord insertion appear normal. Views of the spine and four-chamber heart view were not well obtained due to position. The gestational sac had a normal-appearing shape. Maternal adnexa could not be visualized. Biometrical measurements are as follows: Biparietal 4.18 cm, age 18 weeks 5 days. Head circumference 15.00 cm, age 18 weeks 1 days. Abdominal circumference 14.08 cm, age 19 weeks 4 days. Femur length 3.14 cm, age 19 weeks 6 days. Sonographic estimate age: 19 weeks 1 days. Sonographic estimated date of delivery: 06/14/2019. Estimated Weight: 291 gm (+/- 43 gm). LMP percentile: 85%. heart rate: 158 beats per minute. number: 1 of 1. IMPRESSION: Single live intrauterine fetus measuring 19 weeks 1 day in size. There were no detectable abnormalities although portions of the anatomy cannot be visualized as above, consider repeat study for four chamber heart view and spine images as clinically warranted. Dictated by: Dictated on workstation # [id number]
== END ==
LOC: RAD 13:12
PROVIDERS: ATTEND Obstetrics & Gynecology
DX: Z36.89 Encounter for other specified antenatal screening (principal); Z3A.19 19 weeks gestation of pregnancy
CPT/HCPCS: 76805

== ENCOUNTER 2019-02-24 19:33 | Emergency (ER) | payer MEDICAID ==
[~2019-02-24] VITALS: Ht 170.2 cm; Wt 93.4 kg
--- NOTE | 2019-02-24 20:02 | ED GI ---
General Stated Complaint: BLOOD IN STOOL;24 WKS Source of Information: Patient History of Present Illness Date Seen by Provider: Feb 24, 2019 Time Seen by Provider: 19:49 Initial Comments PT ARRIVES VIA POV FROM HOME WITH MOM WAS SEEN AND EVALUATED IN OB DEPT AND LABOR RULED OUT, SO SENT DOWN HERE FOR FURTHER EVALUATION C/O BLOOD IN STOOLS X 2 TODAY STATES HER STOOLS ARE NORMALLY "DIARRHEA" --TODAY HAD 2 STOOLS WITH BRIGHT RED BLOOD MIXED--HAD SOME IN TOILET BUT MOSTLY BLOOD ON TISSUE WITH WIPING. LAST EPISODE WAS A COUPLE OF HOURS AGO NO RECTAL PAIN. HAS HAD HEMORRHOIDS THAT HAVE BLED, BUT DOES NOT FEEL LIKE IT IS HER HEMORRHOIDS NO PROBLEMS URINATING HAS HAD MILD LOWER ABDOMINAL PAIN/CRAMPING TODAY--STATES PAIN IS NOW MOVING AROUND ALL OVER ABDOMEN NO FEVER HAD SLIGHT NAUSEA EARLIER, IMPROVED WITH EATING PT IS 24 WEEKS --LMP 09/07/[address] MOSER--HAS NOT ATTEMPTED TO CONTACT HIM TODAY FOR THIS PROBLEM IS NO DIFFERENT TONIGHT. PCP: [facility] GRID INSPECTOR: DR. MOSER Allergies and Home Medications Allergies Coded Allergies: No Known Drug Allergies (Unverified , 11/29/08) Home Medications Ondansetron 4 Mg Tab.rapdis, 4 MG PO Q6H PRN for NAUSEA/VOMITING Prescribed by: HEATHER JACKSON on 04/14/16 1001 Patient Home Medication List Home Medication List Reviewed: Yes Review of Systems Review of Systems Constitutional: no symptoms reported Respiratory: No Symptoms Reported Cardiovascular: No Symptoms Reported Gastrointestinal: See HPI, Abdominal Pain, Nausea, Rectal Bleeding Genitourinary: No Symptoms Reported Musculoskeletal: no symptoms reported Skin: no symptoms reported Psychiatric/Neurological: No Symptoms Reported Endocrine: No Symptoms Reported Hematologic/Lymphatic: No Symptoms Reported Past Yqorptc-Cyaepc-Dlmbak Hx Patient Social History Alcohol Use: Denies Use Recreational Drug Use: No Smoking Status: Former Smoker (1/2 PPD-QUIT SMOKING IN FIRST TRIMESTER OF THIS ) Type Used: Cigarettes Recent Foreign Travel: No Contact w/Someone Who Travel: No Recent Hopitalizations: No Immunizations Up To Date Tetanus Booster (TDap): Less than 5yrs Date of Influenza Vaccine: May 05, 2014 Seasonal Allergies Seasonal Allergies: No Past Medical History Surgeries: Yes (D & C) Respiratory: No Cardiac: No Neurological: No : Yes Last Menstrual Period: Sep 07, 2018 Hx : 3 Hx Para: 1 Hx Total # of Abortions (Sp): 1 ("BABY BORN WITH INTESTINES ON THE OUTSIDE" ) Reproductive Disorders: No Female Reproductive Disorders: Denies HIV/AIDS: No Genitourinary: Yes UTI-Chronic Gastrointestinal: Yes Hemorrhoids Musculoskeletal: No Endocrine: No HEENT: No Cancer: No Psychosocial: No Integumentary: No Blood Disorders: No Adverse Reaction/Blood Tranf: No Family Medical History Patient reports no known family medical history. No Pertinent Family Hx Physical Exam Vital Signs Vital Signs - First Documented 02/24/19 19:45 Temp 98.7 Pulse 115 Resp 18 B/P (MAP) 147/80 (102) Capillary Refill : Height/Weight/BMI Height: 5'8.00" Weight: 180lbs. oz. 81.015000am; 21.09 BMI Method:Stated General Appearance: WD/WN, no apparent distress HEENT: No pale conjunctivae (R), No pale conjunctivae (L) Respiratory: normal breath sounds, no respiratory distress, no accessory muscle use Cardiovascular: regular rate, rhythm, no murmur Gastrointestinal: non tender, soft, other (GRAVID UTERUS) Rectal: normal rectal tone, hemorrhoids (MILD, FIRM, TENDERN INTERNAL HEMORRHOIDS, SMALL NON-INFLAMED AND NON-TENDER EXTERNAL HEMORRHOID. NO STOOL IN VAULT. NO GROSS BLOOD, ON EXAM. 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 nml as tested, no motor/sensory deficits, alert, normal mood/affect, oriented x 3 Skin: normal color, warm/dry Progress/Results/Core Measures Results/Orders Lab Results Laboratory Tests Test 02/24/19 19:45 02/24/19 20:05 Range/Units Urine Color YELLOW Urine Clarity CLEAR Urine pH 7 5-9 Urine Specific [place] 1.010 L 1.016-1.022 Urine Protein NEGATIVE NEGATIVE Urine Glucose (UA) NEGATIVE NEGATIVE Urine Ketones NEGATIVE NEGATIVE Urine Nitrite NEGATIVE NEGATIVE Urine Bilirubin NEGATIVE NEGATIVE Urine Urobilinogen NORMAL NORMAL MG/DL Urine Leukocyte Esterase NEGATIVE NEGATIVE Urine RBC (Auto) NEGATIVE NEGATIVE Urine RBC NONE /HPF Urine WBC 2-5 /HPF Urine Squamous Epithelial Cells 5-10 /HPF Urine Crystals NONE /LPF Urine Bacteria LARGE H /HPF Urine Casts NONE /LPF Urine Mucus NEGATIVE /LPF Urine Culture Indicated NO White Blood Count 10.2 4.3-11.0 10^3/uL Red Blood Count 3.78 L 4.35-5.85 10^6/uL Hemoglobin 11.5 11.5-16.0 G/DL Hematocrit 34 L 35-52 % Mean Corpuscular Volume 91 80-99 FL Mean Corpuscular Hemoglobin 30 25-34 PG Mean Corpuscular Hemoglobin Concent 34 32-36 G/DL Red Cell Distribution Width 11.8 10.0-14.5 % Platelet Count 200 130-400 10^3/uL Mean Platelet Volume 8.2 7.4-10.4 FL Neutrophils (%) (Auto) 74 42-75 % Lymphocytes (%) (Auto) 19 12-44 % Monocytes (%) (Auto) 7 0-12 % Eosinophils (%) (Auto) 1 0-10 % Basophils (%) (Auto) 0 0-10 % Neutrophils # (Auto) 7.5 1.8-7.8 X 10^3 Lymphocytes # (Auto) 2.0 1.0-4.0 X 10^3 Monocytes # (Auto) 0.7 0.0-1.0 X 10^3 Eosinophils # (Auto) 0.1 0.0-0.3 10^3/uL Basophils # (Auto) 0.0 0.0-0.1 10^3/uL Prothrombin Time 13.3 12.2-14.7 SEC INR Comment 1.0 0.8-1.4 Activated Partial Thromboplast Time 28 24-35 SEC Sodium Level 138 135-145 MMOL/L Potassium Level 3.8 3.6-5.0 MMOL/L Chloride Level 105 98-107 MMOL/L Carbon Dioxide Level 21 21-32 MMOL/L Anion Gap 12 5-14 MMOL/L Blood Urea Nitrogen 8 7-18 MG/DL Creatinine 0.59 L 0.60-1.30 MG/DL Estimat Glomerular Filtration Rate > 60 BUN/Creatinine Ratio 14 Glucose Level 99 70-105 MG/DL Calcium Level 9.2 8.5-10.1 MG/DL Corrected Calcium 9.4 8.5-10.1 MG/DL Total Bilirubin 0.2 0.1-1.0 MG/DL Aspartate Amino Transf (AST/SGOT) 12 5-34 U/L Alanine Aminotransferase (ALT/SGPT) 17 0-55 U/L Alkaline Phosphatase 70 40-136 U/L Total Protein 6.8 6.4-8.2 GM/DL Albumin 3.8 3.2-4.5 GM/DL My Orders Orders - CARLOS MANUEL KRAFT DO Cbc With Automated Diff (02/24/19 19:55) Comprehensive Metabolic Panel (02/24/19 19:55) Protime With Inr (02/24/19 19:55) Partial Thromboplastin Time (02/24/19 19:55) Ua Culture If Indicated (02/24/19 19:55) Ed Iv/Invasive Line Start (02/24/19 19:55) Heart Tones (02/24/19 19:55) Vital Signs/I&O 02/24/19 19:45 Temp 98.7 Pulse 115 Resp 18 B/P (MAP) 147/80 (102) Progress Progress Note : Progress Note FHR 152 Departure Communication (Admissions) 2034--SPOKE WITH DR. MOSER, ADVISES TO SEND HOME AND PT IS TO FOLLOW UP IN OFFICE IF SYMPTOMS WORSEN/PERSIST. OTHERWISE IS TO KEEP HER REGULAR APPOINTMENT Impression Primary Impression: REPORTED RECTAL BLEEDING Additional Impressions: Hemorrhoids 24 weeks gestation of Disposition: 01 HOME, SELF-CARE Condition: Stable Departure-Patient Inst. Referrals: MEREDITH MOSER DO (PCP) Primary Care Physician NO,LOCAL PHYSICIAN (Family) Primary Care Physician Patient Instructions: Bloody Stools, Adult (DC), Hemorrhoids (DC) Add. Discharge Instructions: LOTS OF CLEAR LIQUIDS BRATS DIET--BANANAS, RICE, APPLESAUCE, TOAST FOLLOW UP WITH DR. MOSER IF SYMPTOMS WORSEN OR PERSIST, OTHERWISE KEEP YOUR REGULAR APPOINTMENT. CARLOS MANUEL KRAFT DO Feb 24, 2019 20:01
[2019-02-24 20:04] LABS: BILIRUBIN,URINE NEGATIVE (NEGATIVE); CLARITY,URINE CLEAR; COLOR,URINE YELLOW; GLUCOSE, URINE (UA) NEGATIVE (NEGATIVE); KETONES,URINE NEGATIVE (NEGATIVE); LEUKOCYTE ESTERASE ,URINE NEGATIVE (NEGATIVE); NITRITE,URINE NEGATIVE (NEGATIVE); PH,URINE 7 (5-9); PROTEIN,URINE NEGATIVE (NEGATIVE); UROBILINOGEN,URINE NORMAL (NORMAL)
[2019-02-24 20:10] LABS: BASOPHILS % (AUTO) 0 % (0-10); EOSINOPHILS # (AUTO) 0.1 10^3/uL (0.0-0.3); EOSINOPHILS % (AUTO) 1 % (0-10); HEMATOCRIT 34 % (35-52); HEMOGLOBIN 11.5 G/DL (11.5-16.0); LYMPHOCYTES % (AUTO) 19 % (12-44); MEAN CORPUSCULAR HEMOGLOBIN 30 PG (25-34); MEAN CORPUSCULAR HGB CONC 34 G/DL (32-36); MEAN CORPUSCULAR VOLUME 91 FL (80-99); MEAN PLATELET VOLUME 8.2 FL (7.4-10.4); MONOCYTES # (AUTO) 0.7 X 10^3 (0.0-1.0); MONOCYTES % (AUTO) 7 % (0-12); NEUTROPHILS # (AUTO) 7.5 X 10^3 (1.8-7.8); NEUTROPHILS % (AUTO) 74 % (42-75); PLATELET COUNT 200 10^3/uL (130-400); RED CELL DISTRIBUTION WIDTH 11.8 % (10.0-14.5); WHITE BLOOD COUNT 10.2 10^3/uL (4.3-11.0)
[2019-02-24 20:24] LABS: BACTERIA,URINE LARGE /HPF
[2019-02-24 20:24] LABS: PROTHROMBIN TIME PATIENT 13.3 SEC (12.2-14.7)
[2019-02-24 20:33] LABS: ALANINE AMINOTRANSFERASE 17 U/L (0-55); ALBUMIN 3.8 GM/DL (3.2-4.5); ALKALINE PHOSPHATASE 70 U/L (40-136); BILIRUBIN,TOTAL 0.2 MG/DL (0.1-1.0); BUN/CREATININE RATIO 14; CALCIUM 9.2 MG/DL (8.5-10.1); CARBON DIOXIDE 21 MMOL/L (21-32); CHLORIDE 105 MMOL/L (98-107); CREATININE SERUM 0.59 MG/DL (0.60-1.30); GFR ESTIMATED > 60; GLUCOSE 99 MG/DL (70-105); POTASSIUM 3.8 MMOL/L (3.6-5.0); SODIUM 138 MMOL/L (135-145); TOTAL PROTEIN 6.8 GM/DL (6.4-8.2)
[2019-02-24 20:58] VITALS: BP 135/80
== END 2019-02-24 21:00 | disposition home or self-care (01) ==
LOC: EDUNIT# 19:33 → ER 19:40
DX: O99.612 Diseases of the digestive system complicating pregnancy, second trimester (principal); O22.42 Hemorrhoids in pregnancy, second trimester; Z87.440 Personal history of urinary (tract) infections; Z87.891 Personal history of nicotine dependence; Z3A.24 24 weeks gestation of pregnancy
CPT/HCPCS: 36415; 80053; 81000; 85025; 85610; 85730

== ENCOUNTER 2019-05-11 16:47 | Outpatient (CLI) | payer MEDICAID ==
[~2019-05-11] VITALS: Ht 172.7 cm; Wt 99.8 kg
--- NOTE | 2019-05-11 16:54 | NUR ---
RODRÍGUEZ TINAJERO presented to unit via AMBULATORY from ED, accompanied by MOTHER AND DAUGHTER, with c/o PRESSURE. RODRÍGUEZ TINAJERO weighed, gowned, voided, and to bed. EFHM and TOCO applied, VS taken. RODRÍGUEZ TINAJERO oriented to bed controls, call light, TV, heat, and A/C controls.
[2019-05-11 17:09] VITALS: BP 132/78
[2019-05-11 17:20] LABS: BILIRUBIN,URINE NEGATIVE (NEGATIVE); CLARITY,URINE SLIGHTLY CLOUDY; COLOR,URINE YELLOW; GLUCOSE, URINE (UA) NEGATIVE (NEGATIVE); KETONES,URINE NEGATIVE (NEGATIVE); LEUKOCYTE ESTERASE ,URINE 3+ (NEGATIVE); NITRITE,URINE NEGATIVE (NEGATIVE); PH,URINE 6.5 (5-9); PROTEIN,URINE 1+ (NEGATIVE); UROBILINOGEN,URINE NORMAL (NORMAL)
[2019-05-11 17:26] LABS: BACTERIA,URINE LARGE /HPF; SQUAMOUS EPITHELIAL CELL,UR 25-50 /HPF
[2019-05-11] MEDS ORDERED: PREN-37 PO (17:27)
[2019-05-11] MEDS ORDERED: PROG50VI5 IM (17:28)
--- NOTE | 2019-05-11 17:42 | NUR ---
DR. SCHULER NOTIFIED OF PT'S ARRIVAL, GESTATION, C/O, REVIEW OF STRIP, UA RESULTS. NEW ORDERS RECEIVED.
--- NOTE | 2019-05-11 17:43 | NUR ---
REFER TO LABOR FLOW SHEET.
--- NOTE | 2019-05-11 17:52 | NUR ---
DISCHARGE PAPERS PROVIDED AND REVIEWED WITH PT, PT VERBALIZES UNDERSTANDING AND DENIES ANY QUESTIONS AT THIS TIME. PAPER SIGNED.
--- NOTE | 2019-05-11 17:54 | NUR ---
PT DISCHARGED FROM [facility] TO PERSONAL AUTO VIA AMBULATORY IN STABLE CONDITION.
--- NOTE | 2019-05-12 08:41 | Physician Query-Final Dx ---
DANIELA TORRES 05/12/19 0841: Clinic Account Progress/Dx Physician Query: Please give diagnosis Please include # weeks gestation Date of Service May 11, 2019 at 16:47 ROBERTO SCHULER DO 05/18/19 0739: Clinic Account Progress/Dx Physician Query: Please give diagnosis (Intrauterine at 35 1/7 weeks 2. Pelvic Pressure) DIAGNOSIS: Diagnosis Intrauterine at 35 1/7 weeks 2. Pelvic Pressure DANIELA TORRES May 12, 2019 08:41 ROBERTO SCHULER DO May 18, 2019 07:39
== END 2019-05-11 17:54 | disposition home or self-care (01) ==
LOC: LDRP 16:47 → WSo 16:47
PROVIDERS: ATTEND Obstetrics & Gynecology
DX: O26.893 Other specified pregnancy related conditions, third trimester (principal); R10.2 Pelvic and perineal pain; Z3A.35 35 weeks gestation of pregnancy
CPT/HCPCS: 81000; 87088; 99212

== ENCOUNTER 2019-05-17 22:45 | Outpatient (CLI) | payer MEDICAID ==
[~2019-05-17] VITALS: Ht 172.7 cm; Wt 102.4 kg
[~2019-05-17 22:45] MED LIST changes: +PREN-37 PO; +PROG50VI5 IM
--- NOTE | 2019-05-17 22:48 | NUR ---
RODRÍGUEZ TINAJERO presented to unit via ambulation from ED, accompanied by SO , with c/o PAIN IN UPPER ABD. RODRÍGUEZ TINAJERO weighed, gowned, voided, and to bed. EFHM and TOCO applied, VS taken. RODRÍGUEZ TINAJERO oriented to bed controls, call light, TV, heat, and A/C controls.
[2019-05-17 23:06] VITALS: BP 134/77
[2019-05-17 23:13] VITALS: BP 134/77
[2019-05-17 23:24] LABS: BILIRUBIN,URINE NEGATIVE (NEGATIVE); CLARITY,URINE CLEAR; COLOR,URINE YELLOW; GLUCOSE, URINE (UA) NEGATIVE (NEGATIVE); KETONES,URINE NEGATIVE (NEGATIVE); LEUKOCYTE ESTERASE ,URINE NEGATIVE (NEGATIVE); NITRITE,URINE NEGATIVE (NEGATIVE); PH,URINE 7 (5-9); PROTEIN,URINE NEGATIVE (NEGATIVE); UROBILINOGEN,URINE NORMAL (NORMAL)
[2019-05-17 23:37] LABS: BACTERIA,URINE NEGATIVE /HPF
--- NOTE | 2019-05-18 00:43 | NUR ---
report to Dr Braden at this time, order for discharge obtained.
[2019-05-18 00:47] VITALS: BP 125/63
--- NOTE | 2019-05-18 00:54 | NUR ---
pt ambulated to private vehicle with verbal and written instructions.
[2019-05-18 00:56] VITALS: BP 125/63
--- NOTE | 2019-05-18 08:58 | Physician Query-Final Dx ---
Clinic Account Progress/Dx Physician Query: Please give diagnosis Please include # weeks gestation Date of Service May 17, 2019 at 22:45 DANIELA TORRES May 18, 2019 08:58
== END 2019-05-18 00:54 | disposition home or self-care (01) ==
LOC: WSo 22:45 → LDRP 22:45 → WSo 05-18 00:54
PROVIDERS: ATTEND Obstetrics & Gynecology
DX: O26.893 Other specified pregnancy related conditions, third trimester (principal); Z3A.36 36 weeks gestation of pregnancy
CPT/HCPCS: 81000; 87088; 99213

== ENCOUNTER 2019-05-26 04:01 | Outpatient (CLI) | payer MEDICAID ==
--- NOTE | 2019-05-26 04:05 | NUR ---
RODRÍGUEZ TINAJERO presented to unit via from ED, accompanied by FAMILY, with c/o 36 6/7 GEST, VOMITING,UTERUS PAIN,FLUID LEAKAGE. RODRÍGUEZ TINAJERO weighed, gowned, voided, and to bed. EFHM and TOCO applied, VS taken. RODRÍGUEZ TINAJERO oriented to bed controls, call light, TV, heat, and A/C controls.
--- NOTE | 2019-05-26 04:07 | NUR ---
ht wt not obtained as suspicion of srom. pt to bed and swabbed as soon as possible.
[2019-05-26 04:32] VITALS: BP 134/85
[2019-05-26 04:41] LABS: BACTERIA,URINE TRACE /HPF; BILIRUBIN,URINE NEGATIVE (NEGATIVE); CLARITY,URINE CLEAR; COLOR,URINE YELLOW; GLUCOSE, URINE (UA) NEGATIVE (NEGATIVE); KETONES,URINE NEGATIVE (NEGATIVE); LEUKOCYTE ESTERASE ,URINE NEGATIVE (NEGATIVE); NITRITE,URINE NEGATIVE (NEGATIVE); PH,URINE 7 (5-9); PROTEIN,URINE 1+ (NEGATIVE)
[2019-05-26] MEDS ORDERED: ONDANSETRON 4 MG (ZOFRAN) ORAL DISSOLVE TAB ONE (04:54)
[2019-05-26] MEDS ORDERED: CALCIUM CARBONATE 500 MG (TUMS) TAB.CHEW ONE (04:54)
[2019-05-26] MEDS ORDERED: CALCIUM CARBONATE 500 MG (TUMS) TAB.CHEW PO ONE (05:00)
[2019-05-26] MEDS ORDERED: ONDANSETRON 4 MG (ZOFRAN) ORAL DISSOLVE TAB PO ONE (05:00)
--- NOTE | 2019-05-26 05:00 | NUR ---
Discharge packet given and explained, understanding voiced, pt aware to keep previously scheduled apt with today at 1400. Ambulatory off unit at this time, accompanied by mother.
--- NOTE | 2019-05-27 09:05 | Physician Query-Final Dx ---
Clinic Account Progress/Dx Physician Query: Please give diagnosis Please include # weeks gestation Date of Service May 26, 2019 at 04:01 DANIELA TORRES May 27, 2019 09:05
== END 2019-05-26 05:00 | disposition home or self-care (01) ==
LOC: WSo 04:01 → LDRP 04:02 → WSo 05:00
PROVIDERS: ATTEND Obstetrics & Gynecology
DX: O21.9 Vomiting of pregnancy, unspecified (principal); Z3A.36 36 weeks gestation of pregnancy
CPT/HCPCS: 81000; 99213

== ENCOUNTER 2019-06-02 20:10 | Outpatient (CLI) | payer MEDICAID ==
[~2019-06-02] VITALS: Ht 172.7 cm; Wt 104.5 kg
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
[2019-06-02 20:32] VITALS: BP 126/78
[2019-06-02 21:21] VITALS: BP 126/78
--- NOTE | 2019-06-02 21:50 | NUR ---
Dr. Braden called with report of pt. Strip and contraction pattern reviewed. SVE's reviewed. states that she would like pt to be rechecked in 1 hr to see if cervix has made change.
--- NOTE | 2019-06-02 23:14 | NUR ---
Discharge instructions discussed with patient. No questions or concerns voiced at time. Signature sheet signed, placed on chart. Offered wheelchair, denied per pt. Pt ambulating off unit at time. No signs of distress noted.
--- NOTE | 2019-06-03 08:11 | Physician Query-Final Dx ---
Clinic Account Progress/Dx Physician Query: Please give diagnosis Please give # weeks gestation Date of Service Jun 02, 2019 at 20:10 DANIELA TORRES Jun 03, 2019 08:11 POS
[2019-06-04] MEDS ORDERED: IBUP-844 PO (07:31)
[2019-06-04] MEDS ORDERED: FERR325T18 PO (07:31)
[2019-06-04] MEDS ORDERED: ACHD5005 PO (07:31)
[2019-06-04] MEDS ORDERED: Benzocaine/Menthol TP (07:31)
[2019-06-04] MEDS ORDERED: DOCU100C37 PO (07:31)
== END 2019-06-02 23:14 ==
LOC: LDRP 20:10 → WSo 20:10
PROVIDERS: ATTEND Obstetrics & Gynecology
DX: O62.9 Abnormality of forces of labor, unspecified (principal); Z3A.37 37 weeks gestation of pregnancy
CPT/HCPCS: 99214

== ENCOUNTER 2019-06-03 14:49 | Inpatient (IN) | payer MEDICAID ==
[2019-06-03] VITALS (18 sets, daily range): BP systolic 129–148; BP diastolic 58–85
[~2019-06-03] VITALS: Ht 172.7 cm; Wt 104.5 kg
--- NOTE | 2019-06-03 14:40 | NUR ---
RODRÍGUEZ TINAJERO presented to unit via ambulation, accompanied by family members, with c/o contractions since last noc. Pt. weighed, gowned, voided, and to bed. EFHM and TOCO applied, VS taken. Pt. oriented to bed controls, call light, TV, heat, and A/C controls.
--- NOTE | 2019-06-03 15:00 | NUR ---
SVE per this RN. 4cm, 60%, 0 station. pt breathing with ctx's. reports ctx's since yesterday. "stripped my membranes yesterday."
--- NOTE | 2019-06-03 15:05 | NUR ---
was notified of pt's admit c/o's and SVE. admission orders received.
[2019-06-03] MEDS ORDERED: D5 LR IV SOLUTION 1,000 ML IV SCH (15:37)
--- NOTE | 2019-06-03 16:10 | NUR ---
#20g IV to Lt.FA x2 attempt by PREMA Levine. site patent. secured with opsite. pt tolerated well.
[2019-06-03 17:18] LABS: BASOPHILS % (AUTO) 0 % (0-10); EOSINOPHILS # (AUTO) 0.1 10^3/uL (0.0-0.3); EOSINOPHILS % (AUTO) 0 % (0-10); HEMATOCRIT 33 % (35-52); HEMOGLOBIN 10.7 G/DL (11.5-16.0); LYMPHOCYTES # (AUTO) 1.8 X 10^3 (1.0-4.0); LYMPHOCYTES % (AUTO) 16 % (12-44); MEAN CORPUSCULAR HEMOGLOBIN 27 PG (25-34); MEAN CORPUSCULAR HGB CONC 32 G/DL (32-36); MEAN CORPUSCULAR VOLUME 84 FL (80-99); MEAN PLATELET VOLUME 8.7 FL (7.4-10.4); MONOCYTES # (AUTO) 0.7 X 10^3 (0.0-1.0); MONOCYTES % (AUTO) 6 % (0-12); NEUTROPHILS # (AUTO) 8.9 X 10^3 (1.8-7.8); NEUTROPHILS % (AUTO) 78 % (42-75); PLATELET COUNT 178 10^3/uL (130-400); RED CELL DISTRIBUTION WIDTH 13.5 % (10.0-14.5); WHITE BLOOD COUNT 11.5 10^3/uL (4.3-11.0)
[2019-06-03] MEDS ORDERED: OXYTOCIN/NORMAL SALINE 500 ML IV SCH ×2 (17:34→20:49)
[2019-06-03] MEDS ORDERED: OXYTOCIN/NORMAL SALINE 500 ML IV ONE (17:35)
--- NOTE | 2019-06-03 19:20 | NUR ---
was called r/t pt's request for IV pain medication. new order received. update given to PREMA Coyle.
[2019-06-03] MEDS ORDERED: HYDROmorphone 2 MG/ML VIAL (DILAUDID) IVP NR (19:30)
[2019-06-03] MEDS ORDERED: LIDOCAINE 1% INJ 20 ML 20 ML VIAL ONE (20:18)
--- NOTE | 2019-06-03 20:35 | NUR ---
2034: Fundus massaged at this time. Fundus at umbilicus and firm. Moderate bleeding noted. Dr. Bernard removed 2 small clots at time. Bleeding now minimal with massage. 2039: Pt. cleaned up. Bed put back together. Pericare done at this time. 2044: Fundus massaged. Fundus at umbilicus with minimal bleeding and firm. No clots noted at this time. 2099: Fundus massaged. Fundus at umbilicus with scant bleeding and firm. No clots noted at this time. 2114: Fundus massaged. Fundus at umbilicus with scant bleeding and firm. No clots noted at this time. 2129: Fundus massaged. Fundus at umbilicus with scant bleeding and firm. No clots noted at this time. 2199: Fundus massaged. Fundus at umbilicus with scant bleeding and firm. No clots noted at this time.
--- NOTE | 2019-06-03 20:54 | History & Physical-OB ---
OB - Chief Complaint & HPI Date/Time Date of Admission: Date of Admission: Jun 03, 2019 at 15:36 Date seen by a Provider: Jun 03, 2019 Time Seen by a Provider: 17:38 Chief Complaint/History OB-Reason for Admission/Chief: Onset of Labor Hx : 3 Hx Para: 1 Expected Date of Delivery: Jun 17, 2019 Gestational Age in Weeks: 38 Gestational Age in Days: 0 Admission Nurse Assessment Rev: Yes History of Labs Apos Antibody neg RI RPR NR HBsAg NR HIV NR GC neg GBS neg Allergies and Home Medications Allergies Coded Allergies: No Known Drug Allergies (Unverified , 11/29/08) Home Medications Vit/Iron Fumarate/FA 1 Each Tablet, 1 EACH PO DAILY, (Reported) Patient Home Medication List Home Medication List Reviewed: Yes OB - History Hx of Present Care: Yes Ultrasounds: Normal mid trimester US Obstetrical Complications: None Medical Complications: None Delivery History Hx Blood Disorders: No Adverse Rxn to Tranfusion: No Patient Past Medical History n/a Social History/Family History HIV/AIDS: No Recent Infectious Disease Expo: No Sexually Transmitted Disease: Yes (chlamydia x2 ) Alcohol Use: Denies Use Recreational Drug Use: No 2nd Hand Smoke Exposure: No Immunizations Hepatitis A: Yes Hepatitis B: Yes Tetanus Booster (TDap): Less than 5yrs Date of Influenza Vaccine: May 05, 2014 OB - Admission Exam Physical Exam Vitals: Vital Signs 06/03/19 06/03/19 14:43 16:00 Temp 36.0 Pulse 99 Resp 18 B/P (MAP) 138/74 (95) O2 Delivery Room Air HEENT: NCAT Heart: Rhythm Normal Lungs: Clear Abdomen: Gravid Extremities: Normal Reflexes: Normal Cervical Dilatation: 5cm Effacement: 75% Station: -1 Membranes: Intact Heart Rate: 130's Accelerations: Accelerations Present Decelerations: No Decelerations Short Term Variability: Present Penitentiary Variability: Average (6-25) Contractions on Admission: < 5 Minutes Apart Intensity: Firm Labs Laboratory Tests Test 06/03/19 17:05 Range/Units White Blood Count 11.5 H 4.3-11.0 10^3/uL Red Blood Count 3.96 L 4.35-5.85 10^6/uL Hemoglobin 10.7 L 11.5-16.0 G/DL Hematocrit 33 L 35-52 % Mean Corpuscular Volume 84 80-99 FL Mean Corpuscular Hemoglobin 27 25-34 PG Mean Corpuscular Hemoglobin Concent 32 32-36 G/DL Red Cell Distribution Width 13.5 10.0-14.5 % Platelet Count 178 130-400 10^3/uL Mean Platelet Volume 8.7 7.4-10.4 FL Neutrophils (%) (Auto) 78 H 42-75 % Lymphocytes (%) (Auto) 16 12-44 % Monocytes (%) (Auto) 6 0-12 % Eosinophils (%) (Auto) 0 0-10 % Basophils (%) (Auto) 0 0-10 % Neutrophils # (Auto) 8.9 H 1.8-7.8 X 10^3 Lymphocytes # (Auto) 1.8 1.0-4.0 X 10^3 Monocytes # (Auto) 0.7 0.0-1.0 X 10^3 Eosinophils # (Auto) 0.1 0.0-0.3 10^3/uL Basophils # (Auto) 0.0 0.0-0.1 10^3/uL OB - Assessment/Plan/Diagnosis Assessment Assessment: active labor Admission Dx 23 yo @ 38 weeks Active labor GBS neg Admission Status: Inpatient Order (span 2 midnights) Reason for Inpatient Admission: Active labor at term Plan Plan: Expectant Management ([facility]) MEREDITH MOSER DO Jun 03, 2019 20:54 POS
--- NOTE | 2019-06-03 20:58 | OB Labor & Delivery Record ---
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 She progressed with low dose pitocin augmentation to complete and +2 station L&D Stage2 Stage Two Stage II Date: Jun 03, 2019 Monitors and Tracing Monitor Mode: External Heart Rate: 140 Monitor Accelerations: Uniform Monitor Decelerations: Variable Intermediate Variability: Average (6-10) Short Term Variability: Present Position: Right Occiput Anterior Presentation: Vertex Cord Descript/Complications Cord Vessel Description: 3 Vessels Delivery Type Infant Delivery Method: Spontaneous Vaginal Anterior Shoulder: Left Episiotomy/Perineal Laceration Laceraction(s)/Extensions: No Condition of Infant Delivery 1 minute Comment: 8 5 minute Comment: 9 Notes Live male weight 6 lbs 14 oz Condition of Infant Condition of Infant: Living Exam: No Observed Abnormalities Resuscitation Resuscitation: N/A - Spontaneous Resp L&D Stage3 Stage Three Stage III Date: Jun 03, 2019 Pictocin Pitocin Administration mu/min: 4 Pitocin ml/hr: 4 Pitocin Administration Comment: 30 mu wide open at delivery of placenta Placenta Delivery Placenta Delivery: Spontaneous Delivery Summary Summary Estimated blood loss (mL): 350 Attending at delivery: Fencelso, Meredith DO Condition of Delivery Examined: Cervix Examined, Uterus Explored Post Hemorrhage: Yes Condition of Mother stable Condition of (s) stable MEREDITH MOSER DO Jun 03, 2019 20:57 POS
[2019-06-03] MEDS ORDERED: TETANUS,DIPTH,PERTUSS P/F (BOOSTRIX) 0.5 ML VIAL IM ONE (21:00)
[2019-06-03] MEDS ORDERED: WITCH HAZEL(TUCKS) 40 EA JAR TOP PRN (21:00)
[2019-06-03] MEDS ORDERED: MEASLES,MUMPS,RUBELLA 1 EA INJ SQ ONE (21:00)
[2019-06-03] MEDS ORDERED: BENZOCAINE/MENTHOL (DERMOPLAST) 56 ML CAN TP PRN (21:00)
[2019-06-03] MEDS: DOCUSATE SODIUM 100 MG (COLACE) CAP PO SCH (21:22)
[2019-06-03] MEDS: IBUPROFEN 600 MG (MOTRIN) TAB PO SCH (21:22)
[2019-06-03] MEDS ORDERED: CATHETER FLUSH 10 ML SYR IV SCH ×2 (22:00)
[2019-06-03] MEDS: HYDROcodone/APAP 5 MG/325 MG (LORTAB) TAB PO PRN (22:00)
--- NOTE | 2019-06-03 22:40 | NUR ---
Pt. up to bathroom. Pt. voided 750ml of clear, yellow urine. Pericare provided to pt and new gown put on. Pt. then transferred to wheelchair to be moved to . Pt. tolerated well. No s/s of distress.
[2019-06-04 03:40] VITALS: BP 119/72
[2019-06-04] MEDS: IBUPROFEN 600 MG (MOTRIN) TAB PO SCH ×4 (03:40→21:24)
[2019-06-04 06:51] LABS: BASOPHILS % (AUTO) 0 % (0-10); EOSINOPHILS # (AUTO) 0.1 10^3/uL (0.0-0.3); EOSINOPHILS % (AUTO) 0 % (0-10); HEMATOCRIT 30 % (35-52); HEMOGLOBIN 9.3 G/DL (11.5-16.0); LYMPHOCYTES # (AUTO) 2.6 X 10^3 (1.0-4.0); LYMPHOCYTES % (AUTO) 19 % (12-44); MEAN CORPUSCULAR HEMOGLOBIN 26 PG (25-34); MEAN CORPUSCULAR HGB CONC 32 G/DL (32-36); MEAN CORPUSCULAR VOLUME 84 FL (80-99); MEAN PLATELET VOLUME 8.7 FL (7.4-10.4); MONOCYTES # (AUTO) 0.9 X 10^3 (0.0-1.0); MONOCYTES % (AUTO) 7 % (0-12); NEUTROPHILS % (AUTO) 74 % (42-75); PLATELET COUNT 175 10^3/uL (130-400); RED CELL DISTRIBUTION WIDTH 13.5 % (10.0-14.5); WHITE BLOOD COUNT 13.6 10^3/uL (4.3-11.0)
--- NOTE | 2019-06-04 07:29 | Postpartum Progress Note ---
Note Note Day # 1 Subjective: Patient is without complaints. Ambulating, voiding. Tolerating a regular diet without nausea or vomiting. Normal lochia. Pain is well controlled with oral pain medications. Objective: Physical Exam: General - Alert and oriented, no apparent distress Abdomen - Soft, appropriately tender to palpation, non-distended, fundus firm at umbilicus Extremities - no edema, negative Leon's bilaterally Assessment: PPD 1 NVD Acute blood loss anemia Plan: Routine care. Encourage breast feeding. Encourage ambulation. Ferrous sulfate supplementation. Plan for discharge tomorrow Vitals - Labs Vital Signs - I&O Vital Signs Date Time Temp Pulse Resp B/P (MAP) Pulse Ox O2 Delivery O2 Flow Rate FiO2 06/04/19 03:40 36.4 75 20 119/72 (88) 99 Room Air 06/03/19 23:59 36.6 96 20 145/83 (103) 99 Room Air 06/03/19 22:30 36.7 93 18 137/58 (84) Room Air 06/03/19 22:15 97 18 139/66 (90) Room Air 06/03/19 22:00 36.9 92 18 136/68 (90) Room Air 06/03/19 21:45 98 18 136/68 (90) Room Air 06/03/19 21:30 36.7 98 20 141/65 (90) Room Air 06/03/19 21:15 90 20 136/68 (90) Room Air 06/03/19 21:04 36.1 96 20 131/84 (100) Room Air 06/03/19 19:10 36.5 105 20 148/75 (99) Room Air 06/03/19 18:55 89 18 134/59 (84) Room Air 06/03/19 18:40 98 18 129/85 (100) Room Air 06/03/19 18:25 98 18 129/85 (100) Room Air 06/03/19 18:10 91 18 131/75 (93) Room Air 06/03/19 17:55 89 18 135/71 (92) Room Air 06/03/19 17:40 95 18 137/70 (92) Room Air 06/03/19 17:30 18 Room Air 06/03/19 17:00 18 Room Air 06/03/19 16:30 18 Room Air 06/03/19 16:00 99 18 138/74 (95) Room Air 06/03/19 15:30 103 18 135/82 (99) Room Air 06/03/19 14:43 36.0 94 18 133/76 (95) Room Air Labs Laboratory Tests 06/03/19 17:05: White Blood Count 11.5H, Red Blood Count 3.96L, Hemoglobin 10.7L, Hematocrit 33L , Mean Corpuscular Volume 84, Mean Corpuscular Hemoglobin 27, Mean Corpuscular Hemoglobin Concent 32, Red Cell Distribution Width 13.5, Platelet Count 178, Mean Platelet Volume 8.7, Neutrophils (%) (Auto) 78H, Lymphocytes (%) (Auto) 16, Monocytes (%) (Auto) 6, Eosinophils (%) (Auto) 0, Basophils (%) (Auto) 0, Neutrophils # (Auto) 8.9H, Lymphocytes # (Auto) 1.8, Monocytes # (Auto) 0.7, Eosinophils # (Auto) 0.1, Basophils # (Auto) 0.0 06/04/19 06:15: White Blood Count 13.6H, Red Blood Count 3.53L, Hemoglobin 9.3L, Hematocrit 30L, Mean Corpuscular Volume 84, Mean Corpuscular Hemoglobin 26, Mean Corpuscular Hemoglobin Concent 32, Red Cell Distribution Width 13.5, Platelet Count 175, Mean Platelet Volume 8.7, Neutrophils (%) (Auto) 74, Lymphocytes (%) (Auto) 19, Monocytes (%) (Auto) 7, Eosinophils (%) (Auto) 0, Basophils (%) (Auto) 0, Neutrophils # (Auto) 10.0H, Lymphocytes # (Auto) 2.6, Monocytes # (Auto) 0.9, Eosinophils # (Auto) 0.1, Basophils # (Auto) 0.0 MEREDITH MOSER DO Jun 04, 2019 07:29 POS
[2019-06-04] MEDS ORDERED: IBUP-844 PO (07:31)
[2019-06-04] MEDS ORDERED: DOCU100C37 PO (07:31)
[2019-06-04] MEDS ORDERED: ACHD5005 PO (07:31)
[2019-06-04] MEDS ORDERED: FERR325T18 PO (07:31)
[2019-06-04] MEDS ORDERED: Benzocaine/Menthol TP (07:31)
--- NOTE | 2019-06-04 07:32 | Discharge Inst-Women's Service ---
Discharge Inst-Women's Serv Depart Medication/Instructions New, Converted or Re-Newed RX: RX on Chart Final Diagnosis PPD 2 NVD Acute blood loss anemia Problems Reviewed?: Yes Consults/Follow Up Additional Follow Up: Yes Orders/Referrals Dr. Moser in 6 weeks Activity Activity: Activity as Tolerated Driving Instructions: No Driving for 1 Week NO SMOKING: NO SMOKING Nothing Inside Vagina: No Douching, No [place], No Tampons Diet Discharge Diet: No Restrictions Symptoms to Report to : Bleeding Excessive, Eyesight Changes, Pain Increased, Fever Over 101 Degrees F, Vaginal Bleeding Increase, Questions/Concerns For Any Problems or Questions: Contact Your Physician MEREDITH MOSER DO Jun 04, 2019 07:32 POS
[2019-06-04] MEDS: DOCUSATE SODIUM 100 MG (COLACE) CAP PO SCH ×2 (08:42→21:24)
[2019-06-04] MEDS: FERROUS SULF 325 MG (IRON) TAB PO SCH (08:42)
[2019-06-04] MEDS: PRENATAL VITAMIN 1 EA TAB PO SCH (08:42)
[2019-06-04 08:44] VITALS: BP 123/71
--- NOTE | 2019-06-04 08:44 | NUR ---
initial shift assessment completed, see interventions for further.
[2019-06-04 13:00] VITALS: BP 115/74
[2019-06-04] MEDS: HYDROcodone/APAP 5 MG/325 MG (LORTAB) TAB PO PRN (14:41)
--- NOTE | 2019-06-04 18:00 | NUR ---
family @ bedside. no c/o's voiced.
[2019-06-04 21:24] VITALS: BP 108/58
--- NOTE | 2019-06-05 00:15 | NUR ---
Pt pumping. Voiced no needs at this time.
[2019-06-05] MEDS: IBUPROFEN 600 MG (MOTRIN) TAB PO SCH ×2 (02:40→10:19)
[2019-06-05 02:41] VITALS: BP 109/65
--- NOTE | 2019-06-05 08:09 | Postpartum Progress Note ---
Note Note Day # 2 Subjective: Patient is without complaints. Ambulating, voiding. Tolerating a regular diet without nausea or vomiting. Normal lochia. Pain is well controlled with oral pain medications. Objective: Physical Exam: General - Alert and oriented, no apparent distress Abdomen - Soft, appropriately tender to palpation, non-distended, fundus firm at umbilicus Extremities - no edema, negative Leon's bilaterally Assessment: PPD 2 NVD Plan: Routine care. Encourage breast feeding. Encourage ambulation. Ferrous sulfate supplementation. Plan for discharge TODAY Vitals - Labs Vital Signs - I&O Vital Signs Date Time Temp Pulse Resp B/P (MAP) Pulse Ox O2 Delivery O2 Flow Rate FiO2 06/05/19 02:41 36.7 64 18 109/65 (80) 06/04/19 21:24 36.3 83 20 108/58 (75) 98 Room Air 06/04/19 13:00 36.1 86 24 115/74 (88) 98 Room Air 06/04/19 08:44 36.5 83 18 123/71 (88) 99 Room Air MEREDITH MOSER DO Jun 05, 2019 08:09 POS
[2019-06-05 10:17] VITALS: BP 101/50
--- NOTE | 2019-06-05 10:17 | NUR ---
initial shift assessment completed, see interventions for further. scheduled medications given, see eMar for further.
[2019-06-05] MEDS: PRENATAL VITAMIN 1 EA TAB PO SCH (10:18)
[2019-06-05] MEDS: DOCUSATE SODIUM 100 MG (COLACE) CAP PO SCH (10:18)
[2019-06-05] MEDS: FERROUS SULF 325 MG (IRON) TAB PO SCH (10:19)
--- NOTE | 2019-06-05 11:00 | NUR ---
dismissal instructions given, verbalizes understanding. reviewed follow up appointment & dismissal Rx's. signature page signed, placed on chart.
--- NOTE | 2019-06-05 11:50 | NUR ---
pt ambulated to private vehicle with staff, infant, family members and infant @ side. secured in rear facing car seat. pt stable with no sx's of distress noted.
== END 2019-06-05 11:50 | disposition home or self-care (01) | DRG 806 ==
LOC: WSo 14:49 → LDRP 14:50 → WSo 15:35 → LDRP 15:36
PROVIDERS: ADMIT Obstetrics & Gynecology; ATTEND Obstetrics & Gynecology
PROC: 10E0XZZ Delivery of Products of Conception, External Approach (ICD-10-PCS; principal; 2019-06-03)
DX: O72.1 Other immediate postpartum hemorrhage (principal); D62 Acute posthemorrhagic anemia; Z37.0 Single live birth; O99.03 Anemia complicating the puerperium; Z3A.38 38 weeks gestation of pregnancy
CPT/HCPCS: 36415; 85025; 86850; 86900; 86901; 99212